=== PATIENT | male | born 1960 | race Caucasian/White ===

== ENCOUNTER 2019-10-25 17:07 | Inpatient (IN) | payer BC, SELFPAY ==
[2019-10-25] VITALS (21 sets, daily range): BP systolic 85–152; BP diastolic 58–104; PULSE 52–160; RESP 12–22; TEMP 36.2–36.8; O2SAT 93–98; BMI 35.9
--- NOTE | ~2019-10-25 | XR_ITS ---
EXAMINATION: XR chest 2V DATE: 10/25/2019 17:41 INDICATION: Chest pressure and palpitations. TECHNIQUE: PA and lateral views of the chest were obtained. COMPARISON: None FINDINGS: The lungs are clear with no focal airspace opacities, pulmonary edema, pleural effusion or pneumothor ax. The cardiomediastinal silhouette is normal. Mild thoracic spondylosis with bridging osteophytes a t multiple levels consistent with diffuse idiopathic skeletal hyperostosis (DISH). IMPRESSION: 1. No acute cardiopulmonary disease. Reviewed, dictated and finalized at location [facility]
--- NOTE | 2019-10-25 17:09 | ECG_ITS ---
Measurements Intervals [place] Rate: 118 P: [place]: 0 QRS: 10 QRSD: 121 T: -19 QT: 266 QTc: 374 Interpretive Statements ATRIAL FIBRILLATION WITH RAPID VENTRICULAR RESPONSE RIGHT BUNDLE BRANCH BLOCK ST-T WAVE ABNORMALITY IN ANTEROLATERAL LEADS- CONSIDER ISCHEMIA BASELINE ARTIFACT- I, III ABNORMAL ECG Electronically Signed On 10-26-2019 7:06:50 UPSETTER HELPER by Tarik Mata D.O.
[2019-10-25 17:30] LABS: Basophils Absolute Auto 0.1 K/mm3 (0.0-0.1); Basophils Percent Auto 0.8 % (0.2-1.2); Eosinophils Absolute Auto 0.2 K/mm3 (0-0.3); Eosinophils Percent Auto 3.3 % (0-4.4); Hematocrit 58.7 % (42.0-52.0); Hemoglobin 19.5 g/dL (14.0-18.0); Immature Granulocyte Absolute 0.01 K/mm3 (0.00-0.031); Immature Granulocyte Percent A 0.2 % (0-0.5); Lymphocytes Absolute Auto 1.59 K/mm3 (0.9-3.2); Lymphocytes Percent Auto 26.1 % (18.3-44.2); Mean Corpuscular HGB Conc 33.2 g/dl (32-36); Mean Corpuscular Hemoglobin 30.1 pg (26-34); Mean Corpuscular Volume 90.7 fl (80-100); Mean Platelet Volume 12.2 fl (7.4-10.4); Monocytes Absolute Auto 0.5 K/mm3 (0.1-0.6); Monocytes Percent Auto 8.5 % (2.6-8.5); Neutrophils Absolute Auto 3.7 K/mm3 (1.3-6.7); Neutrophils Percent Auto 61.1 % (45.5-73.1); Platelet Count Result 182 k/mm3 (150-375); Red Blood Count 6.47 M/mm3 (4.6-6.20); Red Cell Distribution Width 13.6 % (11.5-14.5); White Blood Count 6.1 K/mm3 (4.5-10.0)
[2019-10-25 17:43] LABS: Blood Urea Nitrogen 14 mg/dL (9-20); Calcium 9.7 mg/dL (8.4-10.2); Carbon Dioxide 27 mmol/L (22-30); Chloride 97 mmol/L (98-107); Estimated Glomerular Filt Rate 57; Glucose 117 mg/dL (75-110); Potassium 4.4 mmol/L (3.4-5.0); Sodium 139 mmol/L (137-145)
[2019-10-25 17:55] LABS: Troponin I 0.015 ng/mL (0.000-0.034)
--- NOTE | 2019-10-25 17:59 | ED.ARRPALP ---
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 He states that he was on his way home from eaten [employer] when he developed heart palpitations. He reports associated dizziness, sore throat, and central pressure like CP. He notes that he is on testosterone for ED and that he has been having throbbing BLE pain for roughly 1 month. He states that he has had blood work done which showed he had a elevated hemoglobin level so he had 1 pint of blood taken off roughly 3 weeks ago, which alleviated his pain till recently. He also notes that he is on Xarelto because he has had multiple PE's and DVT's. He denies any SOB, fevers, chills, N/V/D, ABD pain, and any other medical complaints at this time. MD complaint: palpitations Onset (ago): hour(s) (1) Duration: constant Arrhythmia history: atrial fibrillation Associated symptoms: chest pain (central pressure) and other (dizziness, sore throat, throbbing BLE pain) Related Data Home Medications Medication Instructions Recorded Confirmed amlodipine 5 mg PO DAILY 10/25/19 hydrochlorothiazide 12.5 mg PO DAILY 10/25/19 levothyroxine 125 mcg PO DAILY 10/25/19 metoprolol succinate 200 mg PO DAILY 10/25/19 rivaroxaban [Xarelto] 20 mg PO DAILY 10/25/19 valsartan 320 mg PO DAILY 10/25/19 Allergies Allergy/AdvReac Type Severity Reaction Status Date / Time No Known Allergies Allergy Verified 10/25/19 17:29 Review of Systems Review of Systems: All systems reviewed & are unremarkable except as noted in HPI and below Constitutional: Constitutional: Denies chills, Denies fatigue, Denies fever(s), Denies headache(s) and Denies night sweats Eyes: Eyes: Denies change in vision, Denies loss of vision and Denies other visual disturbances ENT: Denies headache(s), Denies hoarseness, Denies epistaxis, Denies nasal congestion and Reports sore throat Cardiovascular: Cardiovascular: Reports chest pain (central pressure), Denies leg edema, Reports palpitations and Denies dyspnea Respiratory: Respiratory: Denies cough, Denies dyspnea and Denies wheezing Gastrointestinal: Gastrointestinal: Denies abdominal pain, Denies diarrhea, Denies nausea and Denies vomiting Genitourinary: Genitourinary: Denies hematuria, Denies dysuria and Denies urinary frequency Musculoskeletal: Musculoskeletal: Denies abnormal gait, Denies deformity, Denies joint swelling, Denies muscle weakness, Denies numbness and Reports other (throbbing BLE pain) Integumentary/Breasts: Skin/Breast: Denies rash, Denies unusual bruising and Denies wounds Neurologic: Denies abnormal gait, Reports dizziness, Denies headache(s), Denies focal weakness, Denies loss of vision and Denies numbness Psychiatric: Psychiatric: Reports no additional psychiatric complaints Endocrine: Endocrine: Denies fatigue and Denies palpitations Hematologic/Lymphatic: Hematologic/Lymphatic: Denies easy bleeding and Denies easy bruising Allergic/Immunologic: Allergic/Immunologic: Denies wheezing PMFSH Past Medical History Medical History (Updated 10/25/19 @ 22:26 by Caden Griffiths MD) A-fib DVT (deep venous thrombosis) ED (erectile dysfunction) On testosterone. Medical history unknown PE (pulmonary thromboembolism) Surgical History Surgical History (Updated 10/25/19 @ 18:43 by Lorenzo Kenny) Surgical history unknown Family History Family History Father Diabetes mellitus Mother Diabetes mellitus Social History Social History Smoking status: Never smoker Gender identity (if verbalized by the patient): Male
[2019-10-25] MEDS: ASPIRIN 81 MG CHEWABLE TABLET 324 MG PO (18:05)
[2019-10-25] MEDS: METOPROLOL TARTRATE INJ 5 MG/5 ML VIAL IV PUSH ×3 (18:51→19:03)
[2019-10-25] MEDS: NITROGLYCERIN OINTMENT 1 INCH DOSE TRANSDERM (18:53)
[2019-10-25] MEDS: LACTATED RINGERS 1,000 ML 999 ML IV CONT (19:04)
[2019-10-25 19:21] LABS: INR 1.5
[2019-10-25 19:25] LABS: Prothrombin Time 17.3 Seconds (11.1-14.7)
[2019-10-25] MEDS: CLOPIDOGREL BISULFATE 300 MG TABLET PO (19:25)
[2019-10-25 19:26] LABS: Partial Thromboplastin Time 33.7 SECONDS (22.3-36.8)
[2019-10-25 20:45] LABS: Troponin I 0.025 ng/mL (0.000-0.034)
--- NOTE | 2019-10-25 20:55 | PC.NURSE ---
2054 EDP at bedside for synchronized cardio version 2055 4 mg versed administered IVP VORB Dr. Griffiths. 1L Ns hanging 2 nc o2 administed 2057 4 mg versed administered ivp vorb Dr. Griffiths 2100 100 J shock administered by Dr. Griffiths. pt converted to normal sinus rhythm.
[2019-10-25] MEDS: MIDAZOLAM HCL 2 MG/2 ML VIAL 8 MG (20:56)
--- NOTE | 2019-10-25 21:00 | PC.NURSE ---
Instructed to pull 4 mg of versed per Dr. johnson, pt was sedated enough that medication was not administered. returned to the [facility].
--- NOTE | 2019-10-25 21:05 | ECG_ITS ---
Measurements Intervals [place] Rate: 83 P: 28 [place]: 142 QRS: 4 QRSD: 120 T: -26 QT: 345 QTc: 406 Interpretive Statements SINUS RHYTHM RIGHT BUNDLE BRANCH BLOCK LEFT VENTRICULAR HYPERTROPHY AND ST-T CHANGE ST-T WAVE ABNORMALITY IN INFERIOR LEADS- CONSIDER ISCHEMIA ABNORMAL ECG Electronically Signed On 10-26-2019 7:11:05 ASSIGNMENT CLERK by Tarik Mata D.O.
--- NOTE | 2019-10-25 23:39 | ADMGEN ---
This patient, Minor Bonilla, was admitted to IMU Room 211-01. Patient/family oriented to hospital policies and general routines including ID bracelet, bed and alarms, visiting hours, pain management, procedures, bathroom and other care routines, personal items, smoking policy, room service/diet, and visiting hours. Valuables list has been completed. Information on how to activate the Rapid Response Team has been discussed. Patient/Family are encouraged to report perceived risks to care and to ask questions if they do not understand what they are told or what they should do.
[2019-10-25] MEDS: LACTATED RINGERS 1,000 ML 125 ML IV CONT (23:42)
[2019-10-26] VITALS (21 sets, daily range): BP systolic 116–160; BP diastolic 75–99; PULSE 53–70; RESP 16–20; TEMP 36.1–36.7; O2SAT 94–98
--- NOTE | 2019-10-26 | ECHO_ITS ---
Patient Info Name: Minor Lujan Age: 58 years : 1960 Gender: Male Ht: 69 in Wt: 244 lbs BSA: 2.36 m2 HR: 55 bpm BP: 128 / 85 mmHg Heart Rhythm: Bradycardia Technical Quality: Good Exam Date: 10/26/2019 4:17 PM Exam Location: [facility] Patient Status: Inpatient Admit Date: 10/25/2019 Staff Ordering Physician: Monica Corona MD Radiology Assistant: Stevie Padilla DANIELE Attending Provider: Jimmy Patton MD Exam Type: CA echo dop color flow w con Study Info Indications I48.0 - Paroxysmal atrial fibrillation Complete two-dimensional, color flow and Doppler transthoracic echocardiogram is performed with contrast to opacify the left ventrical and to improve the deliniation of the left ventrical endocarial boarders. Contrast/Agitated Saline Contrast/Ag. Saline: Definity Amount: 2.00 ml Administered By: Dina Adkins RN History/Risk Factors New onset Afib; palpitations, chest pain. Summary 1. Despite definity echo contrast enhancement, regional wall motion assessment limited due to poor endomyocardial border definition. 2. Left ventricular systolic function is normal, estimated at 55-60%. 3. There is moderately increased left ventricular wall thickness. 4. The left ventricular diastolic function is grade II diastolic dysfunction. 5. Right atrial chamber dimension is moderately enlarged. 6. Left atrial chamber dimension is mildly enlarged. 7. There is mild tricuspid valve regurgitation. 8. There is trace mitral valve regurgitation. Left Ventricle Left ventricular chamber dimension is normal. Left ventricular systolic function is normal, estimated at 55-60%. There is moderately increased left ventricular wall thickness. The left ventricular diastolic function is grade II diastolic dysfunction. Despite definity echo contrast enhancement, regional wall motion assessment limited due to poor endomyocardial border definition. Right Ventricle Right ventricular chamber dimension is normal. Right ventricular systolic function is normal. Left Atria Left atrial chamber dimension is mildly enlarged. Right Atria Right atrial chamber dimension is moderately enlarged. Aortic Valve The aortic valve is not well visualized. There is mild aortic valve sclerosis. There is no aortic valve regurgitation. Pulmonic Valve The pulmonic valve is not well visualized. There is trace pulmonic regurgitation. Mitral Valve The mitral valve has normal leaflets. There is trace mitral valve regurgitation. The mitral valve annulus is mildly calcified. Tricuspid Valve The tricuspid valve leaflets are normal. There is mild tricuspid valve regurgitation. No pulmonary hypertension, estimated pulmonary arterial systolic pressure is 30 mmHg. Pericardium/Pleural The pericardium appears not well visualized. Inferior Vena Cava Normal inferior vena cava with >50% collapse upon inspiration consistent with normal right atrial pressure, 10 mmHg. Aorta The aortic root size at the sinus of Valsalva is normal. Left Ventricular Outflow Tract Name Value Normal LVOT 2D LVOT Diameter 2.19 cm LVOT Doppler
[2019-10-26] MEDS: LEVOTHYROXINE SODIUM 125 MCG TABLET PO (05:57)
[2019-10-26] MEDS: LACTATED RINGERS 1,000 ML 125 ML IV CONT ×2 (08:48→15:58)
[2019-10-26] MEDS: METOPROLOL SUCCINATE EXT REL 100 MG TABCR 200 MG PO (08:50)
[2019-10-26] MEDS: THERAPEUTIC MULTIVITAMINS/MINERALS TAB (*BKC) 1 TABLET PO (08:51)
--- NOTE | 2019-10-26 09:19 | PM.CNCAR ---
Assessment and Plan Additional Plan 58-year-old gentleman with longstanding hypertension obesity and polycythemia. He is admitted last night with his 3rd or 4th episode of recurrent symptomatic atrial fibrillation and we now is asymptomatic following DC cardioversion in the emergency department. He is on beta-stalin therapy and chronically anticoagulated with Xarelto. Because of the recurrences of atrial fib at this point I would recommend attempting more aggressive antiarrhythmic therapy and going to transition him from metoprolol to sotalol. The patient understands that this decision result in him having to be in the hospital for couple of days to monitor for proarrhythmia and QT interval. Since he is in the hospital and going to consult Hematology to see him he says he has an upcoming appointment with Dr. Anthony in a couple of months. To facilitate this evaluation of will consult him as an inpatient Hardik Rock MD [facility] History of Present Illness History of Present Illness Consult date/time: Date of service: 10/26/19 09:19 Reason For Visit: af w rvr cp polycythemia Narrative: This is a 58-year-old gentleman I am seeing in consultation today at the request of the hospitalist service to assist with management of atrial fibrillation. The patient is apparently known to Dr. ivan of our practice and has a history of paroxysmal atrial fibrillation for at least about 6 years. His 1st episode of AFib occurred in 2013 associated with a viral illness. He was treated conservatively he converted to sinus rhythm with beta-stalin treatment and because of low chads score he was not anticoagulated. Since then he has had a couple of symptomatic recurrences of atrial fibrillation which have resulted in the decision to anticoagulate him. According to the chart is last episode was in February of 2018. Yesterday the patient was in his usual state of health when later in the evening he noted the abrupt onset of tachycardia and palpitations. He recognized this as his atrial fibrillation. He stated the symptoms were a bit more concerning to him because this 1 was associated with a sense of some air hunger and some chest discomfort as well. He came into the emergency department was seen and presumably because of the symptoms was electrically cardioverted to sinus rhythm. The ED notes temp however read that he was otherwise comfortable and did not have any cut other complaints at the time he was being seen down there. He was sedated and cardioverted with 100 joules synchronized cardioversion was in the emergency room which restored normal sinus rhythm. He has been admitted to the hospital and is being seen in at this morning in consultation he offers no other complaints at this time. The patient also indicates he was recently found to have polycythemia. He indicates that this was identified by Dr. Manning during a recent office visit were lab work was done. Reading Dr. moncho patel however the patient was noted to have an elevated hemoglobin couple of years ago in the hospital. He was taking a testosterone supplement at that time and was advised to discontinue this. When he was in his usual state of health he denies any other complaints such as exertional chest pain shortness of breath orthopnea PND or edema. He has never had a syncopal episode. Previous echocardiograms have demonstrated concentric left ventricular hypertrophy with good systolic function and no significant valvular disease. Presumably the P AFib is on the basis of hypertensive left ventricular hypertrophy. Review of Systems Constitutional: Constitutional: Reports no additional constitutional complaints Eyes: Eyes: Reports no additional eye complaints ENT: Reports system reviewed and no additional complaints, except as documented Cardiovascular: Cardiovascular: Reports as per HPI Respiratory: Respiratory: Reports as per HPI Gastrointestinal: Gastrointestinal: Reports no additional gastr
[2019-10-26 09:46] LABS: Hematocrit 52.3 % (42.0-52.0); Mean Corpuscular HGB Conc 32.5 g/dl (32-36); Mean Corpuscular Volume 92.2 fl (80-100); Mean Platelet Volume 12.1 fl (7.4-10.4); Platelet Count Result 143 k/mm3 (150-375); Red Blood Count 5.67 M/mm3 (4.6-6.20); Red Cell Distribution Width 13.4 % (11.5-14.5); White Blood Count 4.8 K/mm3 (4.5-10.0)
[2019-10-26 09:55] LABS: Blood Urea Nitrogen 13 mg/dL (9-20); Calcium 8.8 mg/dL (8.4-10.2); Carbon Dioxide 31 mmol/L (22-30); Chloride 98 mmol/L (98-107); Estimated CRCL calculation 67 ml/min; Estimated Glomerular Filt Rate 57; Glucose 120 mg/dL (75-110); Magnesium 1.7 mg/dL (1.6-2.3); Sodium 136 mmol/L (137-145)
[2019-10-26] MEDS: ASPIRIN 81 MG CHEWABLE TABLET PO (10:21)
--- NOTE | 2019-10-26 13:37 | PC.NURSE ---
0930 dose of sotalol not given - will start this pm per Savana Balderas AQUACULTURE FARMER order- pt had received am dose of metoprolol 200mg - HR 55-
--- NOTE | 2019-10-26 14:54 | PM.IMHP ---
H&P: HPI History of Present Illness Chief complaint: af w rvr cp polycythemia Narrative: Minor Lujan Sr. is a 58 year old male Patient is a 58-year-old male with history of DVT PE chronically on Xarelto he also has a history of polycythemia vera, he presented emergency department with a complaint of palpitation was found to have new onset atrial fibrillation with RVR he was DC converted in the emergency depart started on metoprolol and remained in sinus rhythm, patient was seen by armature inspector recommended the patient will benefit switching over to sotalol is patient has history of recurrent atrial fibrillation at this time patient denies any complaints of palpitation chest pain shortness of breath fever or chills Review of Systems Review of Systems: All systems reviewed & are unremarkable except as noted in HPI and below PMFSH Past Medical History Medical History (Updated 10/26/19 @ 16:16 by Monica Corona MD) A-fib DVT (deep venous thrombosis) ED (erectile dysfunction) On testosterone. Medical history unknown PE (pulmonary thromboembolism) Surgical History Surgical History (Updated 10/25/19 @ 18:43 by Lorenzo Kenny) Surgical history unknown Family History Family History (Updated 10/26/19 @ 00:04 by Sandy Lynch RN) Father Diabetes mellitus Mother Diabetes mellitus Afib Hypertension Social History Social History Smoking status: Never smoker Alcohol intake: never Substance use: never Gender identity (if verbalized by the patient): Male Agree to blood products: No Meds Home Medications and Allergies Home Medications Medication Instructions Recorded Confirmed Type amlodipine 5 mg PO DAILY 10/25/19 10/26/19 History hydrochlorothiazide 12.5 mg PO DAILY 10/25/19 10/26/19 History levothyroxine 125 mcg PO DAILY 10/25/19 10/26/19 History metoprolol succinate 200 mg PO DAILY 10/25/19 10/26/19 History rivaroxaban [Xarelto] 20 mg PO DAILY 10/25/19 10/26/19 History valsartan 320 mg PO DAILY 10/25/19 10/26/19 History multivitamin with iron [Daily 1 tablet PO DAILY 10/26/19 10/26/19 History Vitamin with Iron] Allergies Allergy/AdvReac Type Severity Reaction Status Date / Time No Known Allergies Allergy Verified 10/25/19 17:29 Vital Signs Vital Signs - 24 hr 10/25/19 17:13 10/25/19 18:51 10/25/19 18:57 Temperature 98.2 F Pulse Rate 130 H 142 H 124 H Pulse Rate [Monitor] Respiratory Rate 20 Blood Pressure 152/104 H Blood Pressure [Right Arm] Pulse Oximetry 98 10/25/19 19:03 10/25/19 19:26 10/25/19 20:30 Temperature Pulse Rate 160 H 116 H 121 H Pulse Rate [Monitor] Respiratory Rate 18 15 Blood Pressure 125/81 111/59 L Blood Pressure [Right Arm] Pulse Oximetry 97 95 10/25/19 20:55 10/25/19 21:01 10/25/19 21:06 Temperature Pulse Rate Pulse Rate [Monitor] 147 H 129 H 115 H Respiratory Rate 15 19 21 H Blood Pressure Blood Pressure [Right Arm] 111/59 L 109/72 111/59 L Pulse Oximetry 95 98 94 10/25/19 21:11 10/25/19 21:17 10/25/19 21:23 Temperature Pulse Rate Pulse Rate [Monitor] 82 78 66 Respiratory Rate 17 17 14 Blood Pressure Blood Pressure [Right Arm] 93/65 L 85/69 L 87/64 L Pulse Oximetry 97 94 97 10/25/19 21:28 10/25/19 21:33 10/25/19 21:36 Temperature Pulse Rate Pulse Rate [Monitor] 76 80 68 Respiratory Rate 22 H 18 12 Blood Pressure Blood Pressure [Right Arm] 100/70 123/94 H 100/75 Pulse Oximetry 95 95 93 10/25/19 21:37 10/25/19 21:46 10/25/19 22:01 Temperature Pulse Rate 73 Pulse Rate [Monitor] 67 58 L Respiratory Rate 20 18 15 Blood Pressure 100/75 Blood Pressure [Right Arm] 95/70 L 95/79 L Pulse Oximetry 96 96 93 10/25/19 22:34 10/25/19 23:24 10/25/19 23:38 Temperature 98.0 F 97.1 F L Pulse Rate 54 L 52 L 54 L Pulse Rate [Monitor] Respiratory Rate 18 17 20 Blood Pressure 98/58 L 102/79 116/76 Blood Pressure
[2019-10-26] MEDS: PERFLUTREN LIPID MICROSPHERES 1.5 ML VIAL DILUTED TO 10 ML TOTAL VOLUME IV PUSH (17:07)
[2019-10-26] MEDS: RIVAROXABAN 20 MG TABLET PO (17:49)
[2019-10-27] VITALS (10 sets, daily range): BP systolic 130–155; BP diastolic 80–99; PULSE 41–74; RESP 16–20; TEMP 36.3–36.9; O2SAT 96–98
--- NOTE | 2019-10-27 02:27 | CONS_ITS ---
DATE OF CONSULTATION: 10/26/2019 REASON FOR CONSULTATION: Erythrocytosis. HISTORY OF PRESENTING ILLNESS: This is a pleasant 58-year-old male, who has a history of DVT and PE diagnosed 3 years ago and has been on Xarelto since then. The patient also has a history of atrial fibrillation. He came into the emergency room with complaint of palpitation and found to have atrial fibrillation with rapid ventricular rate. He was started on metoprolol and remained in sinus rhythm. The patient also has been taking testosterone injections for at least 10 years duration. He was switched to testosterone cream just about a month ago. He had donated blood 3 weeks ago at [facility]. He complained of bilateral lower extremity pain, which has improved after the blood donation. He denies any history of smoking. He also has been currently worked up for sleep apnea. He denies any other complaints. REVIEW OF SYSTEMS: Twelve-point review of systems reviewed and as per HPI, otherwise negative. PAST MEDICAL HISTORY: Atrial fibrillation, history of pulmonary embolism, DVT, and erectile dysfunction. PAST SURGICAL HISTORY: None. FAMILY HISTORY: Positive for diabetes. SOCIAL HISTORY: Denies any history of smoking and drinking. HOME MEDICATIONS: Reviewed. ALLERGIES: REVIEWED. PHYSICAL EXAMINATION: GENERAL: This patient is a well-developed, well-nourished male, in no apparent distress, oriented x3. VITAL SIGNS: Per nursing note. HEENT: Normocephalic, atraumatic. Clear oropharynx. LUNGS: Clear to auscultation bilaterally. CARDIOVASCULAR: Regular rate and rhythm. No murmurs. ABDOMEN: Soft, nontender, nondistended. Bowel sounds are positive in all 4 quadrants. No hepatosplenomegaly. EXTREMITIES: No edema. NEUROLOGIC: Grossly intact. LABORATORY DATA: WBC 4.8, hemoglobin 17, hematocrit 52.3, and platelet 143,000, neutrophils 61%, lymphocytes 26%. INR 1.5. Creatinine 1.3. ASSESSMENT AND PLAN: 1. Erythrocytosis. The patient is a 58-year-old obese male, who has no history of smoking, but has been currently worked up for sleep apnea. The patient has been on testosterone injection for 10 years duration, but recently switched to testosterone cream about a month ago. He had been complaining of bilateral lower extremity myalgias, which has improved after donating blood 3 weeks ago at [facility]. He denies any chest pain and does have some shortness of breath. He has a history of pulmonary embolism diagnosed 3 years ago and has been on Xarelto since then. He now came into the hospital with recurrent atrial fibrillation. He had DC cardioversion done in the ER and has been on beta blockers since then. I have discussed the etiology of erythrocytosis with the patient. I do not see need for JAK2 mutation testing since etiology is quite apparent that this is due to the testosterone therapy. I will check erythropoietin level. I have recommended biweekly phlebotomy in my office to keep hematocrit around 45. The patient has been provided with my office information. He will follow up with my office soon after the discharge to initiate biweekly phlebotomy treatment. 2. Atrial fibrillation. The patient is on Xarelto as well as on beta blockers. 3. History of pulmonary embolism. The patient is on Xarelto. SHAD GUZMÁN M.D. BOILER OUT BOILER OUT D Juan MT: Addi
[2019-10-27 04:42] LABS: Hematocrit 51.9 % (42.0-52.0); Hemoglobin 17.1 g/dL (14.0-18.0); Mean Corpuscular HGB Conc 32.9 g/dl (32-36); Mean Corpuscular Hemoglobin 30.2 pg (26-34); Mean Corpuscular Volume 91.5 fl (80-100); Mean Platelet Volume 11.8 fl (7.4-10.4); Platelet Count Result 143 k/mm3 (150-375); Red Blood Count 5.67 M/mm3 (4.6-6.20); Red Cell Distribution Width 13.2 % (11.5-14.5); White Blood Count 5.3 K/mm3 (4.5-10.0)
[2019-10-27 05:09] LABS: Blood Urea Nitrogen 14 mg/dL (9-20); Calcium 8.7 mg/dL (8.4-10.2); Carbon Dioxide 28 mmol/L (22-30); Chloride 100 mmol/L (98-107); Estimated CRCL calculation 72 ml/min; Estimated Glomerular Filt Rate > 60; Glucose 96 mg/dL (75-110); Potassium 4.3 mmol/L (3.4-5.0); Sodium 137 mmol/L (137-145)
[2019-10-27] MEDS: LEVOTHYROXINE SODIUM 125 MCG TABLET PO (06:54)
--- NOTE | 2019-10-27 07:44 | PC.NURSE ---
Dr. Pearce called back regarding Sotalol administration, she spoke with Sanyd Lynch. Dr. Tripathi will speak with Savana Balderas NP and will advise how to proceed. Await for further instructions.
--- NOTE | 2019-10-27 08:00 | ECG_ITS ---
Measurements Intervals [place] Rate: 52 P: 30 OR: 149 QRS: 11 QRSD: 126 T: -31 QT: 390 QTc: 363 Interpretive Statements SINUS BRADYCARDIA RIGHT BUNDLE BRANCH BLOCK LEFT VENTRICULAR HYPERTROPHY ST-T WAVE ABNORMALITY IN INFERIOR LEADS- CONSIDER ISCHEMIA ABNORMAL ECG Electronically Signed On 10-27-2019 10:22:57 ELECTROMECHANICAL EQUIPMENT TESTER by Tarik Maat D.O.
[2019-10-27] MEDS: THERAPEUTIC MULTIVITAMINS/MINERALS TAB (*BKC) 1 TABLET PO (09:52)
[2019-10-27] MEDS: ASPIRIN 81 MG CHEWABLE TABLET PO (10:57)
[2019-10-27] MEDS: RIVAROXABAN 20 MG TABLET PO (16:43)
--- NOTE | 2019-10-27 16:43 | PM.PNCARD ---
Progress Note: A&P Assessment and Plan (1) Atrial fibrillation with RVR: Code(s): I48.91 - Unspecified atrial fibrillation Status: Acute Assessment and Plan: Cardioverted in the emergency room. Plan was to start sotalol however his heart rates have been in the low 50s and at night down into the 30s and 40s. Sleep study has been ordered by Dr. Douglass. 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 Additional Plan OK to discharge from cardiac standpoint See discharge instructions for follow-up Plan discussed with Dr Jenkins [id number] 10/27/2019 Time Spent With Patient Time with patient: 15 - 25 minutes Subjective Date/time seen: 10/27/19 16:43 Interval history: Follow-up for: Atrial fibrillation with rapid ventricular response, untreated sleep apnea, hypertension, erythrocytosis Date of service: 10/27/2019 Subjective: Denied chest discomfort, shortness of breath, lightheadedness or palpitations. Review of Systems Constitutional: Constitutional: Denies anorexia, Denies body ache(s), Denies chills and Denies fatigue Eyes: Eyes: Denies blurry vision ENT: Denies dysphagia, Denies dizziness and Denies epistaxis Cardiovascular: Cardiovascular: Denies chest pain, Denies leg edema and Denies dyspnea Respiratory: Respiratory: Denies cough and Denies dyspnea Gastrointestinal: Gastrointestinal: Denies abdominal pain, Denies diarrhea, Denies nausea and Denies vomiting Genitourinary: Genitourinary: Denies hematuria Musculoskeletal: Musculoskeletal: Denies myalgias Neurologic: Reports Normal hearing present, Denies abnormal gait and Denies headache(s) Psychiatric: Psychiatric: Denies anxiety and Denies depression Hematologic/Lymphatic: Hematologic/Lymphatic: Reports easy bruising Allergic/Immunologic: Allergic/Immunologic: Denies itchy eyes Exam Const: General: cooperative, comfortable and no acute distress Nutritional Appearance: obese Orientation/consciousness: patient oriented x3 Limitations: no limitations HENMT: Mouth: Yes moist mucous membranes Eyes: Sclera: sclerae normal Pupils: Equal, round and reactive pupils present Neck: Neck: full ROM Other: Correct carotid upstrokes normal no bruits audible Resp: Effort & Inspection: normal respiratory effort Auscultation: clear to auscultation bilaterally Cardio: Rate: regular rate Rhythm: regular rhythm Other: S4 gallop is evident no cardiac murmur is audible GI: Auscultation: normal bowel sounds Skin: General skin exam: normal color Neuro: Cranial nerves: Yes Equal, round and reactive pupils present Cognition (Neuro): normal cognition Extrem: General: normal to inspection Psych: Appearance: grossly normal Mental Status: mental status grossly normal Speech and movement: Normal speech and movement present Affect: normal affect Attitude: cooperative Thought process: Normal thought process present Thought content: Yes Normal thought content present Insight: Good insight present (Psych) Judgement: Good judgement present (Psych) Objective Data Vital Signs Vital Signs: Vital Signs - 24 hr 10/26/19 18:00 10/26/19 19:37 10/26/19 20:00 Temperature 36.7 C Pulse Rate 64 57 L 56 L Respiratory Rate 18 16 Blood Pressure 148/99 H Pulse Oximetry 94 97 10/26/19 21:19 10/26/19 22:00 10/26/19 23:55
--- NOTE | 2019-10-27 17:23 | PM.DS ---
DS: Diagnosis Admitting Diagnosis Admitting Diagnosis: Unspecified atrial fibrillation Discharge Diagnosis (1) Atrial fibrillation with RVR: Code(s): I48.91 - Unspecified atrial fibrillation Status: Acute Assessment and Plan: Minor Lujan is a 58 year old male Patient is a 58-year-old male with history of DVT PE chronically on Xarelto he also has a history of polycythemia vera, he presented emergency department with a complaint of palpitation was found to have new onset atrial fibrillation with RVR he was DC converted in the emergency depart started on metoprolol and remained in sinus rhythm, patient was seen by tar pot man recommended the patient will benefit switching over to sotalol is patient has history of recurrent atrial fibrillation at this time patient denies any complaints of palpitation chest pain shortness of breath fever or chills (2) Polycythemia: Code(s): D75.1 - Secondary polycythemia Status: Acute Assessment and Plan: Patient clinically stable will be seen by civil engineering assistant and further recommendation to follow (3) Chest pain: Code(s): R07.9 - Chest pain, unspecified Status: Acute Assessment and Plan: Most likely induced by atrial fibrillation with with RVR unlikely secondary to coronary artery disease is 3 sets of cardiac enzymes are negative and there are no acute changes on EKG patient is seen by tar pot man (4) PE (pulmonary thromboembolism): Code(s): I26.99 - Other pulmonary embolism without acute cor pulmonale Status: Acute Assessment and Plan: Chronic on Xarelto clinically stable (5) DVT (deep venous thrombosis): Code(s): I82.409 - Acute embolism and thrombosis of unspecified deep veins of unspecified lower extremity Status: Acute Assessment and Plan: Chronic on Xarelto clinically stable DS: Summary Hospital Course Reason for hospitalization: Patient is a 58-year-old male with history of DVT PE chronically on Xarelto he also has a history of polycythemia vera, he presented emergency department with a complaint of palpitation was found to have new onset atrial fibrillation with RVR he was DC converted in the emergency depart started on metoprolol and remained in sinus rhythm, patient was seen by tar pot man recommended the patient will benefit switching over to sotalol is patient has history of recurrent atrial fibrillation at this time patient denies any complaints of palpitation chest pain shortness of breath fever or chills Hospital Course: Patient is a 58-year-old male with history of DVT PE chronically on Xarelto he also has a history of polycythemia vera, he presented emergency department with a complaint of palpitation was found to have new onset atrial fibrillation with RVR he was DC converted in the emergency depart started on metoprolol and remained in sinus rhythm, patient was seen by tar pot man recommended the patient will benefit switching over to sotalol is patient has history of recurrent atrial fibrillation however patient developed bradycardia and sotalol was stopped and patient was placed on metoprolol succinate, his rate is controlled and he clinically stable, will discharge home today, he will follow up with tar pot man as scheduled, Status at Discharge Cognitive/behavioral status at discharge: Patient is back to baseline Functional status at discharge: independent ambulation Overall status at discharge: patient is back to baseline Time Spent with Patient Time attestation: Total time spent providing and/or coordinating discharge services: Patient was seen and examined at the time of the discharge Condition at discharge is stable Code status: Full code. Time spent preparing discharge summary, discharge medications, discussing discharge planning with continuous pillowcase cutter and patient is 35 minutes. Time spent: Greater than 30 minutes Exam Narrative: Exam Narrative: Patient is moderately obese Const: G
== END 2019-10-27 17:50 | disposition home or self-care (01) | DRG 310 ==
LOC: ANHED 22:26 → ANHIMU 23:21
PROVIDERS: Emergency Medicine; Internal Medicine Hematology & Oncology; Admitting Provider Internal Medicine; Emergency Provider Emergency Medicine; PCP Family Medicine Adolescent Medicine; Visit Provider Family Medicine
DX: I48.0 Paroxysmal atrial fibrillation (principal); Z79.01 Long term (current) use of anticoagulants; Z86.718 Personal history of other venous thrombosis and embolism; Z86.711 Personal history of pulmonary embolism; D75.1 Secondary polycythemia; I25.10 Atherosclerotic heart disease of native coronary artery without angina pectoris; N52.9 Male erectile dysfunction, unspecified; E66.9 Obesity, unspecified; Z68.35 Body mass index [BMI] 35.0-35.9, adult
CPT/HCPCS: 36415; 71046; 80048; 82668; 83735; 84484; 85025; 85027; 85610; 85730; 92960; 93005; 96361; 96374; 99291; A9270; C8929; J2250; J7030; J7120; Q9957

== ENCOUNTER 2020-03-04 09:56 | Outpatient (CLI) | payer BC, SELFPAY ==
[2020-03-04 11:42] LABS: Add Urine Microscopic? YES; Appearance Urine Clear (Clear); Bilirubin Urine Negative (Negative); Blood Urine Negative (Negative); Color Urine Yellow (Yellow); Glucose Urine UA Negative (Negative); INR 1.5; Ketones Urine Negative (Negative); Leukocyte Esterase Ur Negative LEU/UL (Negative); Mucus Urine Rare /lpf; Nitrate Urine Negative (Negative); Protein Urine Negative (Negative); Prothrombin Time 17.9 Seconds (11.1-14.7); RBC Urine 0-2 /hpf (0-2); Specific Grav Ur 1.019 (1.001-1.035); Urobilinogen Urine Negative mg/dL (<2.0); WBC Urine 0-3 /hpf
[2020-03-04 11:43] LABS: Hemoglobin A1C 5.7 % (<5.7); Partial Thromboplastin Time 32.9 SECONDS (22.3-36.8); Urine Cotinine NEGATIVE
[2020-03-04 11:53] LABS: Albumin Level 4.1 g/dL (3.5-5.1); Blood Urea Nitrogen 13 mg/dL (9-20); Calcium 8.7 mg/dL (8.4-10.2); Carbon Dioxide 24 mmol/L (22-30); Chloride 106 mmol/L (98-107); Estimated Glomerular Filt Rate > 60; Glucose 98 mg/dL (75-110); Potassium 4.4 mmol/L (3.4-5.0); Sodium 137 mmol/L (137-145)
== END 2020-03-04 09:57 | disposition home or self-care (01) ==
PROVIDERS: PCP Family Medicine Adolescent Medicine; Visit Provider Orthopaedic Surgery
DX: M16.12 Unilateral primary osteoarthritis, left hip (principal)
CPT/HCPCS: 36415; 80048; 80307; 81001; 82040; 83036; 85610; 85730; 86850; 86900; 86901; 87081

== ENCOUNTER 2020-03-12 04:15 | Outpatient (CLI) | payer BC, SELFPAY ==
[2020-03-12 18:08] LABS: SARS-CoV-2 RNA PCR Negative
== END 2020-03-12 04:16 | disposition home or self-care (01) ==
LOC: ANHCOVIDDT 04:15
PROVIDERS: PCP Family Medicine Adolescent Medicine; Visit Provider Orthopaedic Surgery
DX: Z01.812 Encounter for preprocedural laboratory examination (principal); Z11.59 Encounter for screening for other viral diseases
CPT/HCPCS: 87635; C9803; U0003

== ENCOUNTER 2020-03-15 00:15 | Day surgery (SDC) | payer BC, SELFPAY ==
[2020-03-04 10:29] VITALS: BP 154/78; PULSE 62; RESP 20; TEMP 36.8; O2SAT 97; BMI 35.2
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
[2020-03-15] VITALS (12 sets, daily range): BP systolic 86–120; BP diastolic 38–80; PULSE 55–99; RESP 12–20; TEMP 36.1–36.8; O2SAT 97–100; BMI 35.1
--- NOTE | ~2020-03-15 | XR_ITS ---
EXAMINATION: XR hip LT 1V DATE: 03/15/2020 10:45 INDICATION: Left hip arthroplasty TECHNIQUE: AP view of the left hip FINDINGS: There is a left total hip arthroplasty in expected position. Subcutaneous gas with soft ti ssue swelling are consistent with recent surgery. IMPRESSION: 1. Recent left total hip arthroplasty. Reviewed, dictated and finalized at location A.
[2020-03-15] MEDS: LACTATED RINGERS 1,000 ML 30 ML IV CONT ×2 (06:35→10:30)
[2020-03-15] MEDS: IBUPROFEN IV 800 MG/200 ML 800 MG/200 ML BAG 400 MG IVPB (06:40)
[2020-03-15] MEDS: TRANEXAMIC ACID 1,000MG/ISO100 1,000 MG/100 ML BAG 200 MG IVPB (07:11)
[2020-03-15 07:13] LABS: Prothrombin Time 13.1 Seconds (11.1-14.7)
[2020-03-15 07:14] LABS: Partial Thromboplastin Time 25.6 SECONDS (22.3-36.8)
--- NOTE | 2020-03-15 07:27 | WPDHPUPDATE1 ---
History and Physical Update Update Date/Time: 03/15/20 07:27 History and Physical has been reviewed, including an updated exam of the patient. There are NO changes in the patient's condition. Risks, benefits, and alternatives have been discussed and questions answered. Patient agrees to proceed with procedure.
[2020-03-15] MEDS: ceFAZolin 2 GM/D5W 50 ML 2 GM/50 ML BAG IVPB ×3 (07:36→23:55)
--- NOTE | 2020-03-15 10:32 | PM.OP ---
Procedure Note - Brief Procedure Note - Brief Date of procedure: 03/15/20 Pre-op diagnosis: Left Hip DJD Post-op diagnosis: same Procedure performed: L SERA Anesthesia: GETA Surgeon: Lester Mathews MD Estimated blood loss (mL): 450 Drains: No Complications: No immediate complications Condition: stable Disposition: PACU
--- NOTE | 2020-03-15 11:03 | SUR.PHASEI ---
1040 xrays of left hip done,dr metcalf aware.
--- NOTE | 2020-03-15 11:55 | PC.NURSE ---
This patient, Minor Solis Le Doyle, was admitted to -. Patient/family oriented to hospital policies and general routines including ID bracelet, bed and alarms, visiting hours, pain management, procedures, bathroom and other care routines, personal items, smoking policy, room service/diet, and visiting hours. Valuables list has been completed. Information on how to activate the Rapid Response Team has been discussed. Patient/Family are encouraged to report perceived risks to care and to ask questions if they do not understand what they are told or what they should do.
[2020-03-15 12:18] LABS: Hematocrit 48.3 % (42.0-52.0); Hemoglobin 15.5 g/dL (14.0-18.0)
[2020-03-15] MEDS: SODIUM CHLORIDE 0.9% IV 1,000 ML 125 ML IV CONT (12:57)
--- NOTE | 2020-03-15 14:24 | PC.NURSE ---
Call to pharmacy to request 0900 medications be sent to floor for administration.
--- NOTE | 2020-03-15 14:30 | OP_ITS ---
DATE OF PROCEDURE: 03/15/2020 PREOPERATIVE DIAGNOSIS: Left hip DJD. POSTOPERATIVE DIAGNOSIS: Left hip DJD. PROCEDURE: Left total hip arthroplasty. ANESTHESIA: General. COMPLICATIONS: None. INDICATIONS: This is a 59-year-old gentleman who has had a history of bilateral hip arthrosis. He had a right total hip arthroplasty approximately 6 years ago and now, he is here for his left total hip arthroplasty, which also has severe arthritis. DESCRIPTION OF PROCEDURE: The patient was taken to the operating room in stable condition and placed in supine position. General anesthesia was induced and then, the patient was placed in a lateral decubitus and the left lower extremity was prepped and draped sterilely from the toes to the iliac crest region. Incision was made in posterolateral aspect of the hip down to the subcutaneous tissues and down to the fascia. The fascia was incised, exposing the short external rotators of the hip. The piriformis tendon was identified. Sciatic nerve was identified as well. The greater and the lesser trochanter were identified. Incision was made through the short external rotators including the piriformis tendon and then through the capsule, the hip joint and then down until the lesser trochanter was observed. There was clear fluid coming from the hip joint. Once that was performed, then an osteotomy was performed approximately 1 cm proximal to the lesser trochanter and the head measured approximately 48 mm. Next, the acetabulum was exposed well. Sequential reaming was performed starting with a 44 reamer and ending with a 49 reamer and approximately 35 degrees of abduction and 15 degrees of anteversion. A trial 49 acetabular component was placed and fit well, it bottomed out well and it was very tight. Once that was performed, then a #50 G7 Biomet acetabular component was press-fit into the acetabulum in approximately 40 degrees of abduction and the anteversion was in alignment with the trans-acetabular ligament. The fit was excellent. No screws were necessary. A 10-degree high wall liner was added. Next, the femoral canal was prepared first with a canal finder and then, with sequential broaching until a #6 broach in 15 degrees of anteversion fit well within the femoral canal. A high offset neck and a +0, 36 mm head were used and the hip was relocated, taken through range of motion. The Shuck test was excellent. The hip was very stable. The leg-lengths were grossly equal. The trial components were removed and then, a Taper Lock #6 with a high offset neck was tapped in the femoral canal and 15 degrees of anteversion and it felt good and it was tight and excellent fit. Next, a +0, 36 mm head was tried once again. The hip was taken through range of motion. Leg lengths were found to be grossly equal. There was good stability in all rotation and then, the trial head was removed and then, a Biomet ceramic 36 mm head with a +0 neck was tapped into place. The hip was taken through range of motion once again. Leg lengths were grossly equal. The hip was very stable specially in internal rotation at 90 degrees. The Shuck test was excellent. Next, the wound was irrigated thoroughly with sterile Betadine and sterile water for 3 minutes. The capsule and the short external rotators were approximated with #1 Vicryl suture. The fascial layer was approximated with #2 Quill. The subcutaneous tissues were approximated with 3-0 Quill and then Dermabond was placed and Steri-Strips. Sterile dressing was applied. The patient was placed back into the supine position. He was extubated and sent to Recovery. Irma I MT: Addi
[2020-03-15] MEDS: FERROUS SULFATE 324 MG TABLET PO (14:58)
--- NOTE | 2020-03-15 15:30 | WPDCN ---
Assessment and Plan Assessment and plan (1) Degenerative joint disease of left hip: Code(s): M16.12 - Unilateral primary osteoarthritis, left hip Status: Acute Assessment and Plan: Postoperative day 0, status post left total hip arthroplasty. Wound care, pain control, and DVT prophylaxis deferred to primary service. (2) Paroxysmal atrial fibrillation: Code(s): I48.0 - Paroxysmal atrial fibrillation Status: Acute Assessment and Plan: Currently in a sinus rhythm. Continue metoprolol for rate control. Resume Xarelto per Dr. Mathews. (3) Current use of long-term anticoagulation: Code(s): Z79.01 - senior living (current) use of anticoagulants Status: Acute Assessment and Plan: Resume Xarelto as soon as okay with Dr. Mathews. (4) Hypertension: Qualifiers: Hypertension type: essential hypertension Qualified Code(s): I10 - Essential (primary) hypertension Code(s): I10 - Essential (primary) hypertension Status: Acute Assessment and Plan: Blood pressures were bit soft postoperatively, but have now improved. His antihypertensives will be reviewed and resumed as appropriate. Will continue to monitor blood pressures daily. (5) Hypothyroidism: Code(s): E03.9 - Hypothyroidism, unspecified Status: Acute Assessment and Plan: Continue levothyroxine. Additional Plan Thank you for allowing us to participate in this patient's care. Please do not hesitate to contact us with any questions. We will follow with you. Supervising physician for this medical consultation is Dr. Royal Butts. HPI Data of Consult Date/Time: 03/15/20 1530 Requesting Physician: Lester Mathews MD Primary Care Provider: Jordan Sims MD Consult Narrative Narrative: Minor Lujan Sr. is 59-year-old male status post left total hip arthroplasty whom the hospitalist service has been consulted for management of his chronic medical conditions to include paroxysmal atrial fibrillation on long-term anticoagulation, history of pulmonary embolism, hypothyroidism, hypertension, and polycythemia vera. He has suffered from degenerative joint disease for quite some time and has a history of right hip replacement. He has had pain in his left hip for quite some time, not amenable to conservative outpatient treatment, and he thus elected for replacement today. His surgery was performed under general anesthesia with no immediate complications documented an estimated blood loss of 450 mL. At the time my evaluation his pain is increasing and he rates it about an 8/10 go has a difficult time describing the pain. He denies paresthesias, skin color, and temperature changes distal to the surgical site. He also denies postoperative fever, chills, chest pain, shortness of breath, nausea, and vomiting. As mentioned he is on long-term Xarelto with his last dose being 2 days ago on Saturday morning. Review of Systems Review of Systems: Narrative: Twelve systems were reviewed with pertinent positives and negatives as per HPI. Complains of mild scratchy throat post surgery. No fever, chills, or sweats. No recent cold or flu symptoms. He denies cough and shortness of breath. No recent travel or sick contacts. Except as documented, all other systems were reviewed and are negative. [facility] Past Medical History Medical History (Updated 03/15/20 @ 20:27 by Randa Galan PA-C) Anemia Chronic back pain Secondary to degenerative disc disease in the cervical spine and at L3-L4. He has a history of nerve ablation in his neck for chronic headaches. Nighat
[2020-03-15] MEDS: CELECOXIB 200 MG CAPSULE PO (16:11)
[2020-03-15] MEDS: oxyCODONE/ACETAMINOPHEN 5-325 MG TABLET 2 TABLET PO (16:12)
[2020-03-15] MEDS: diazePAM 5 MG TABLET PO (18:14)
[2020-03-16] VITALS: BP 125/75; PULSE 90; RESP 20; TEMP 36.6; O2SAT 97
[2020-03-16 05:34] VITALS: BP 118/78; PULSE 108; RESP 20; TEMP 36.7; O2SAT 97
[2020-03-16 05:38] LABS: Basophils Percent Auto 0.1 % (0.2-1.2); Eosinophils Percent Auto 0.1 % (0-4.4); Hematocrit 46.4 % (42.0-52.0); Hemoglobin 14.8 g/dL (14.0-18.0); Immature Granulocyte Absolute 0.03 K/mm3 (0.00-0.031); Immature Granulocyte Percent A 0.4 % (0-0.5); Lymphocytes Percent Auto 10.7 % (18.3-44.2); Mean Corpuscular HGB Conc 31.9 g/dl (32-36); Mean Corpuscular Hemoglobin 29.2 pg (26-34); Mean Corpuscular Volume 91.7 fl (80-100); Mean Platelet Volume 12.2 fl (7.4-10.4); Monocytes Absolute Auto 0.8 K/mm3 (0.1-0.6); Monocytes Percent Auto 9.4 % (2.6-8.5); Neutrophils Absolute Auto 6.7 K/mm3 (1.3-6.7); Neutrophils Percent Auto 79.3 % (45.5-73.1); Platelet Count Result 165 k/mm3 (150-375); Red Blood Count 5.06 M/mm3 (4.6-6.20); Red Cell Distribution Width 13.9 % (11.5-14.5); White Blood Count 8.4 K/mm3 (4.5-10.0)
[2020-03-16 05:46] LABS: Blood Urea Nitrogen 21 mg/dL (9-20); Calcium 7.8 mg/dL (8.4-10.2); Carbon Dioxide 26 mmol/L (22-30); Chloride 102 mmol/L (98-107); Estimated CRCL calculation 71 ml/min; Estimated Glomerular Filt Rate > 60; Glucose 123 mg/dL (75-110); Sodium 135 mmol/L (137-145)
[2020-03-16] MEDS: LEVOTHYROXINE SODIUM 125 MCG TABLET PO (06:19)
[2020-03-16 09:00] VITALS: PULSE 76
[2020-03-16] MEDS: CELECOXIB 200 MG CAPSULE PO (09:00)
[2020-03-16] MEDS: FERROUS SULFATE 324 MG TABLET PO (09:00)
[2020-03-16] MEDS: DOCUSATE SODIUM 100 MG CAPSULE PO (09:00)
[2020-03-16] MEDS: METOPROLOL SUCCINATE EXT REL 50 MG TABCR PO (09:00)
[2020-03-16] MEDS: ceFAZolin 2 GM/D5W 50 ML 2 GM/50 ML BAG IVPB (09:01)
--- NOTE | 2020-03-16 09:33 | P.PNAN_ITS ---
Anes - Prog Note Post-Op Date/Time: 03/16/20 09:33 Cardiovascular status: normal Respiratory status: normal Airway patency: baseline Mental status: baseline Post-Op hydration status: normal Vital Signs: Last Vital Signs Temp 36.7 C 03/16/20 05:34 Pulse 76 03/16/20 09:00 Resp 20 03/16/20 05:34 BP 118/78 03/16/20 05:34 Pulse Ox 97 03/16/20 05:34 I/O: Intake & Output 03/15/20 03/16/20 03/16/20 23:59 07:59 15:59 Intake Total 840 950 565 Output Total 1100 200 Balance 840 -150 365 Laboratory Tests 03/16/20 05:05 03/16/20 05:05 03/15/20 03/16/20 03/16/20 12:11 05:05 05:05 WBC 8.4 RBC 5.06 Hgb 15.5 14.8 Hct 48.3 46.4 MCV 91.7 MCH 29.2 MCHC 31.9 L RDW 13.9 Plt Count 165 MPV 12.2 H Immature Gran % (Auto) 0.4 Neut % (Auto) 79.3 H Lymph % (Auto) 10.7 L [place] % (Auto) 9.4 H Eos % (Auto) 0.1 Baso % (Auto) 0.1 L Lymph # (Auto) 0.90 [place] # (Auto) 0.8 H Eos # (Auto) 0.0 Baso # (Auto) 0.0 Abs Immat Gran (auto) 0.03 Absolute Neuts (auto) 6.7 Absolute Nucleated RBC 0.0 Nucleated RBC % 0.0 Sodium 135 L Potassium 4.0 Chloride 102 Carbon Dioxide 26 BUN 21 H Creatinine 1.20 Estim Creat Clear Calc 71 Estimated GFR > 60 Glucose 123 H Calcium 7.8 L Post-procedural complaints: none Patient Feedback: Patient satisfied with anesthetic care.
[2020-03-16 10:00] VITALS: BP 115/74; PULSE 95; RESP 16; TEMP 36.5; O2SAT 97
--- NOTE | 2020-03-16 12:46 | PM.PNORT ---
Progress Note: A&P Additional Plan POD 1 DOING WELL AND HAS PASSED PT. HE WOULD LIKE TO GO HOME. HIS HGB IS STABLE. HE WILL F/U IN 3 WEEKS. Time Spent With Patient Time with patient: 15 - 25 minutes Subjective Subjective Date/Time Seen: 03/16/20 12:46 Post Op day: 1 (pod 1 DOING WELL. PASSED PT. 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 Objective Data Vital Signs Vital Signs: Vital Signs - 24 hr 03/15/20 13:45 03/15/20 17:34 03/16/20 00:00 Temperature 36.3 C L 36.8 C 36.6 C Pulse Rate 76 99 90 Respiratory Rate 16 20 20 Blood Pressure 115/63 119/80 125/75 Pulse Oximetry 99 97 97 03/16/20 05:34 03/16/20 09:00 03/16/20 10:00 Temperature 36.7 C 36.5 C Pulse Rate 108 H 76 95 Respiratory Rate 20 16 Blood Pressure 118/78 115/74 Pulse Oximetry 97 97 Intake/Output Intake/Output: Intake & Output 03/13/20 03/14/20 03/15/20 03/16/20 23:59 23:59 23:59 23:59 Intake Total 1539 1515 Output Total 1300 Balance 1539 215 Meds/Results Medications: Active Medications Generic Name Dose Route Start Last Admin Trade Name Freq PRN Reason Stop Dose Admin Acetaminophen 650 mg 03/15/20 11:49 Tylenol Tablet PO Q6H PRN Mild Pain (1-3) or Fever Hydrocodone Bitart/Acetaminophen 1 tab 03/15/20 11:49 03/16/20 06:19 [place] 7.5-325 Mg PO 1 tab Q3H PRN Administration Pain Rated 4-6 Celecoxib 200 mg 03/15/20 17:00 03/16/20 09:00 Celebrex PO 200 mg BID KAYLA Administration Diazepam 5 mg 03/15/20 11:49 03/15/20 18:14 Valium Po PO 5 mg Q6H PRN Administration Anxiety/Muscle Spasm Docusate Sodium 100 mg 03/15/20 17:00 03/16/20 09:00 Colace Capsule PO 100 mg BID KAYLA Administration Ferrous Sulfate 324 mg 03/15/20 09:00 03/16/20 09:00 Ferrous Sulfate PO 324 mg DAILY [facility] Administration Hydrochlorothiazide 12.5 mg 03/15/20 09:00 03/15/20 14:52 Hydrochlorothiazide PO Not Given DAILY [facility] Levothyroxine Sodium 125 mcg 03/16/20 06:30 03/16/20 06:19 Synthroid PO 125 mcg DAILY@0630 [facility] Administration Magnesium Hydroxide 30 ml 03/15/20 11:49 Milk Of Magnesia PO BID PRN Constipation Metoprolol Succinate 50 mg 03/16/20 09:00 03/16/20 09:00 Toprol Xl PO 50 mg QAM [facility] Administration Morphine Sulfate 3 mg 03/15/20 11:49 Morphine Sulfate Inj IV PUSH Q3H PRN Pain Rated 7-10 Naloxone HCl 0.1 mg 03/15/20 11:49 Narcan IV PUSH Q2M PRN Opiate Reversal Non-Formulary Medication 25 mg 03/15/20 11:49 Sildenafil PO DAILY PRN Edema Ondansetron HCl 4 mg 03/15/20 11:49 Zofran Inj IV PUSH Q4H PRN Nausea And Vomiting Oxycodone/Acetaminophen 2 tablet 03/15/20 11:49 03/15/20 16:12 Percocet 5-325 Mg PO 2 tablet Q4H PRN Administration Breakthrough Pain Valsartan 320 mg 03/16/20 09:00 [facility] Results: ITS Impressions Hip X-Ray 03/15/20 11:16 IMPRESSION: 1. Recent left total hip arthroplasty. Labs Labs: Laboratory Results - last 24 hr 03/16/20 03/16/20 05:05 05:05 WBC 8.4 RBC 5.06 Hgb 14.8 Hct 46.4 MCV 91.7 MCH 29.2 MCHC 31.9 L RDW 13.9 Plt Count 165 MPV 12.2 H Immature Gran % (Auto) 0.4 Neut % (Auto) 79.3 H Lymph % (Auto) 10.7 L Patrick % (Auto) 9.4 H Eos % (Auto) 0.1 Baso % (Auto) 0.1 L Lymph # (Auto) 0.90 Patrick # (Auto) 0.8 H Eos # (Auto) 0.0 Baso # (Auto) 0.0 Abs Immat Gran (auto) 0.03 Absolute Neuts (auto) 6.7 Absolute Nucleated RBC 0.0 Nucleated RBC % 0.0 Sodium 135 L Potassium 4.0 Chloride 102 Carbon Dioxide 26 BUN 21 H Creatinine 1.20 Estim Creat Clear Calc 71 Estimated GFR > 60 Glucose 123 H Calcium 7.8 L
--- NOTE | 2020-03-16 12:53 | PM.IMPN ---
Progress Note: A&P Assessment and Plan (1) Degenerative joint disease of left hip: Code(s): M16.12 - Unilateral primary osteoarthritis, left hip Status: Acute Assessment and Plan: Postoperative day 1, status post left total hip arthroplasty. Wound care, pain control, and DVT prophylaxis deferred to primary service. (2) Paroxysmal atrial fibrillation: Code(s): I48.0 - Paroxysmal atrial fibrillation Status: Acute Assessment and Plan: Currently in a sinus rhythm. Continue metoprolol for rate control. Resume Xarelto per Dr. Mathews. (3) Current use of intermodal customer service anticoagulation: Code(s): Z79.01 - assisted (current) use of anticoagulants Status: Acute Assessment and Plan: Resume Xarelto as soon as okay with Dr. Mathews. (4) Hypertension: Qualifiers: Hypertension type: essential hypertension Qualified Code(s): I10 - Essential (primary) hypertension Code(s): I10 - Essential (primary) hypertension Status: Acute Assessment and Plan: Blood pressures were bit soft postoperatively, but improved slightly since yesterday Discussed in detail about resuming metoprol and valsartan tomorrow. Patient to hold HCTZ for 2-3 days. Discussed measuring BP over the next several days. Resume HCTZ if BP over 140 sys Patient and understands directions (5) Hypothyroidism: Code(s): E03.9 - Hypothyroidism, unspecified Status: Acute Assessment and Plan: Continue levothyroxine. Additional Plan Thank you for allowing us to participate in this patient's care. Please do not hesitate to contact us with any questions. We will follow with you. Subjective Date/time seen: 03/16/20 12:53 This is a Hospitalist Consult Progress Note Interval history: Patient is a 59 yo M with history of paroxysmal atrial fibrillation on long-term anticoagulation, history of pulmonary embolism, hypothyroidism, hypertension, and polycythemia vera who is here for left hip arthroplast POD1 per Dr. Mathews; Hospitalist service consulted for medical management of comorbid conditions. Patient states he is feeling okay today. His pain is rated 5-8 with movement, but otherwise reasonably controlled without movement. No other complaints. Tolerating PO. Denies f/c/s, headaches, dizziness, lightheadedness, cp/palpitations, sob/cough, n/v/d/c, abd pain, changes in BMs, dysuria, hematuria, cloudy urine, calf pain/swelling. Review of Systems Review of Systems: All systems reviewed & are unremarkable except as noted in HPI and below Exam Narrative: Exam Narrative: Patient sitting upright in chair at time of visit. is in room visiting Const: General: cooperative, healthy appearing, comfortable, no acute distress, well developed and alert Orientation/consciousness: patient oriented x3 HENMT: Head: normocephalic and atraumatic General nose exam: Normal nares present Face and sinus: face symmetric Mouth: Yes moist mucous membranes Eyes: General: appearance normal, both eyes and all related structures EOM: EOMs intact bilaterally Neck: Neck: trachea midline and supple Resp: Effort & Inspection: normal respiratory effort Auscultation: clear to auscultation bilaterally Cardio: Rate: regular rate Rhythm: regular rhythm Heart sounds: no murmurs Other: Appears to be in sinus at time of evaluation GI: Inspection: non-distended and obesity GI Palp: No abdominal tenderness and Yes Soft to palpation Auscultation: normal bowel sounds and normoactive bowel sounds Skin: General skin exam: normal color and no rashes or lesions noted Neuro: General: moves all
--- NOTE | 2020-03-16 12:53 | PM.DS ---
DS: Admitting Diagnosis Admitting Diagnosis Admitting Diagnosis: Unilateral primary osteoarthritis, left hip DS: Discharge Diagnosis Discharge Diagnosis (1) History of left hip replacement: Code(s): Z96.642 - Presence of left artificial hip joint Status: Acute DS: Summary Time Spent with Patient Time attestation: Total time spent providing 15 MINand/or coordinating discharge services: DS: Data Data Completed and Pending Labs on day of discharge: Labs from last 24 hours 03/16/20 03/16/20 05:05 05:05 WBC 8.4 RBC 5.06 Hgb 14.8 Hct 46.4 MCV 91.7 MCH 29.2 MCHC 31.9 L RDW 13.9 Plt Count 165 MPV 12.2 H Immature Gran % (Auto) 0.4 Neut % (Auto) 79.3 H Lymph % (Auto) 10.7 L [place] % (Auto) 9.4 H Eos % (Auto) 0.1 Baso % (Auto) 0.1 L Lymph # (Auto) 0.90 [place] # (Auto) 0.8 H Eos # (Auto) 0.0 Baso # (Auto) 0.0 Abs Immat Gran (auto) 0.03 Absolute Neuts (auto) 6.7 Absolute Nucleated RBC 0.0 Nucleated RBC % 0.0 Sodium 135 L Potassium 4.0 Chloride 102 Carbon Dioxide 26 BUN 21 H Creatinine 1.20 Estim Creat Clear Calc 71 Estimated GFR > 60 Glucose 123 H Calcium 7.8 L Discharge Plan Discharge Patient Disposition: Home Health Service Discharge Instructions: Per Care Coordination: [facility] was arranged to follow at discharge. [facility] will contact you prior to their first visit. [facility] can be contacted at [phone]. Patient Instructions: Antibiotic Form, Rivaroxaban (By mouth), Pain Management (DC), Precautions after Total Joint Replacement Surgery (DC), Fall Prevention (DC), Joint Replacement Surgery (DC), Total Hip Replacement (DC) Stand Alone Forms: General Discharge Information Follow-up/Referrals: Lester Mathews MD [Physician] - 3 Weeks Discharge Medications: New hydrocodone-acetaminophen [[place]] 5-325 mg tablet 1 tablet PO Q6H PRN (Reason: pain) Qty: 60 RF: 0 Continued sildenafil 25 mg Tablet 25 mg PO DAILY PRN (Reason: Edema) RF: 0 ferrous sulfate [iron] 325 mg (65 mg iron) Tablet 325 mg PO DAILY RF: 0 testosterone enanthate 200 mg/mL Oil 200 mg DAILY RF: 0 levothyroxine 125 mcg tablet 125 mcg PO DAILY RF: 0 valsartan 320 mg tablet 320 mg PO DAILY RF: 0 hydrochlorothiazide 12.5 mg capsule 12.5 mg PO DAILY RF: 0 Xarelto 20 mg tablet 20 mg PO DAILY RF: 0 metoprolol succinate 200 mg tablet extended release 24 hr 100 mg PO DAILY Qty: 30 RF: 0 celecoxib [Celebrex] 200 mg capsule 200 mg PO BID Qty: 30 RF: 0
== END 2020-03-16 13:52 | disposition home health service (06) ==
LOC: ANHSURGERY 06:01 → ANH2MED 14:03
PROVIDERS: PCP Family Medicine Adolescent Medicine; Visit Provider Orthopaedic Surgery
PROC: (CPT 27130; principal; 2020-03-15 07:30)
DX: M16.12 Unilateral primary osteoarthritis, left hip (principal); I48.0 Paroxysmal atrial fibrillation; D64.9 Anemia, unspecified; I10 Essential (primary) hypertension; E03.9 Hypothyroidism, unspecified; M51.36 Other intervertebral disc degeneration, lumbar region; G89.29 Other chronic pain; Z86.711 Personal history of pulmonary embolism; Z86.718 Personal history of other venous thrombosis and embolism; E66.9 Obesity, unspecified; Z68.35 Body mass index [BMI] 35.0-35.9, adult; Z79.01 Long term (current) use of anticoagulants
CPT/HCPCS: 27130; 36415; 73501; 80048; 85014; 85018; 85025; 85610; 85730; 97110; 97116; 97161; 97165; A9270; C1776; J0171; J0690; J1100; J1170; J1741; J2250; J2270; J2405; J2704; J2710; J2795; J3010; J7030; J7120

== ENCOUNTER 2020-04-14 09:33 | Outpatient (CLI) | payer BC, SELFPAY ==
--- NOTE | 2020-04-18 06:16 | SLEEP_ITS ---
Home Sleep Test DATE OF STUDY: 04/14/2020 ORDERING PHYSICIAN: Collin Douglass M.D. REASON FOR THE STUDY: Hypersomnia, atrial fib. HISTORY: This patient is a 59-year-old male, 5 feet 9 inches tall, weighing 239 pounds with a body mass index of 35.2. He has a history of atrial fibrillation and hypertension. He frequently snores and it is frequently loud enough that others complain about it. He occasionally has trouble sleeping with a cold. He does not gasp for breath at night and is not told by others that he has breathing problems. He rarely sweats excessively at night. He does not notice his heart pounding or beating irregularly at night. He occasionally falls asleep during the day, never involuntarily, never while driving, never with physical effort and he does not have loss of muscle tone with strong emotion. He does not have daytime difficulties due to excessive sleepiness. He does not have the feeling of paralysis on waking or falling asleep. He rarely has vivid dreamlike scenes upon awakening or falling asleep. He is never afraid to go to sleep. He rarely has nightmares and rarely remembers his dreams. He occasionally has racing thoughts. He never feels sad or depressed. He frequently has anxiety. He occasionally has muscular tension. He does not notice parts of his body jerking, he does not kick at night. He does not have crawly achy feelings in his legs. He does not have leg pain at night. He denies morning jaw pain. He rarely grinds his teeth. He frequently is bothered by pain during the day, occasionally is awakened by pain at night and occasionally wakes up feeling stiff in the morning. He rarely has sore achy muscles in the morning and occasionally wakes up with pain in the neck and spine. He is unable to relax. Bedtime is 11:00 p.m., falling asleep within 30 minutes waking once at night to go to the bathroom. He will stay awake on average 10 minutes. He wakes in the morning at 08:00 a.m. He has a same schedule on the weekends. He does not take naps. He is drowsy in the morning for 1 hour or longer. MEDICAL COMORBIDITIES: Hypertension, hypothyroidism, paroxysmal atrial fibrillation, total hip replacement and knee surgery. MEDICATIONS: 1. Valsartan 320 mg a day. 2. Amlodipine 5 mg a day. 3. Levothyroxine 125 mcg a day. 4. Metoprolol 100 mg a day. 5. Celebrex 200 mg a day. 6. Zolpidem 10 mg at night. HABITS: Never smoked tobacco. Caffeine, 2 cups a day. No alcohol or recreational drugs. DESCRIPTION OF THE STUDY: On the [place] Sleepiness Scale, the score is 4. This was conducted as an unattended type 3 portable home sleep test with 4 channel monitoring including respiratory effort channel, snoring channel, oxygen saturation channel, and heart rate channel. The study was scored using [facility] guidelines. Duration was 5 hours 55 minutes. The apnea-hypopnea index was 10.3, elevated. The oxygen desaturation index is 10.1. The lowest desaturation is 68%, very low. He had 9 apneas. 78% of the apneas or 7 were central, 22% of the apneas or 2 were obstructive and he had 52 hypopneas with 1250 snoring events. He desaturated 60 times and spent 16 minutes, 5% of the study below 88% saturation. Heart rate ranged from 40 to 85. IMPRESSION: This home sleep test shows evidence of at least mild obstructive sleep apnea syndrome G47.33 with an apnea-hypopnea index of 10.3, deep sustained desaturations to a minimum of 68% and 16 minutes spent below 88% saturation. The patient had several centrals and this is significant because he does have atrial fibrillation. He may tolerate an auto PAP with pressures between 5 and 15 with an appropriate mask. Followup is recommended. If apnea-hypopnea index is not improved or his symptoms are not
== END 2020-04-14 09:34 | disposition home or self-care (01) ==
LOC: ANHCSM 09:33
PROVIDERS: PCP Family Medicine Adolescent Medicine; Visit Provider Internal Medicine Cardiovascular Disease
DX: G47.33 Obstructive sleep apnea (adult) (pediatric) (principal)
CPT/HCPCS: 95806

== ENCOUNTER 2020-06-18 13:31 | Outpatient (CLI) | payer BC, SELFPAY ==
--- NOTE | ~2020-06-18 | MR_ITS ---
EXAMINATION: MR lumbar spine wo [facility] EXAM DATE: 06/18/2020 14:10 INDICATION: Left anterior thigh pain, difficulty walking. TECHNIQUE: Multi-sequential, multiplanar MR images of the lumbar spine were obtained without contrast . Sagittal T1, T2, T2 fat saturation images. Axial T2 weighted images. There is no prior study for comparison. FINDINGS: There is moderate disc disease L4-5 and L5-S1, mild to moderate at L3-4 and mild at L1-2. T he conus medullaris terminates at the L1/2 level and has normal signal intensity and morphology. The re is 2-3 mm retrolisthesis L4 on L5. The vertebral bodies are otherwise aligned. Vertebral body heig hts are maintained. Some small vertebral body hemangiomata. No suspicious marrow signal abnormalities . Paraspinal soft tissue is unremarkable. Level by level evaluation: T12-L1: Disc does not extend beyond the endplate margin. Facet arthropathy: Mild to moderate right, mild left. Neural foraminal stenosis: No stenosis. Central canal stenosis: No stenosis. L1-L2: There is a minimal diffuse disc bulge. Facet arthropathy: Mild bilateral. Neural foraminal stenosis: No stenosis. Central canal stenosis: No stenosis. L2-L3: There is a mild diffuse disc bulge. Facet arthropathy: Mild. Neural foraminal stenosis: No stenosis. Central canal stenosis: No stenosis. L3-L4: There is a mild to moderate diffuse disc bulge. Facet arthropathy: Mild. Neural foraminal stenosis: Mild bilateral. Central canal stenosis: Mild. L4-L5: There is a moderate diffuse disc bulge, asymmetric to the left. Facet arthropathy: Mild to moderate. Neural foraminal stenosis: Moderate right, mild to moderate left. Central canal stenosis: Mild to moderate. L5-S1: There is a mild to moderate diffuse disc bulge. Facet arthropathy: Moderate right, mild to moderate left. Neural foraminal stenosis: Moderate to severe bilateral, right more than left. Central canal stenosis: Mild. IMPRESSION: 1. L5-S1 moderate to severe neural foraminal stenosis. 2. Moderate disc disease L4-5 and L5-S1. 3. Grade 1 retrolisthesis L4 on L5. Reviewed, dictated and finalized at location B.
== END 2020-06-18 13:32 | disposition home or self-care (01) ==
PROVIDERS: PCP Family Medicine Adolescent Medicine; Visit Provider Orthopaedic Surgery
DX: M54.9 Dorsalgia, unspecified (principal); M48.07 Spinal stenosis, lumbosacral region; M51.87 Other intervertebral disc disorders, lumbosacral region; M43.16 Spondylolisthesis, lumbar region
CPT/HCPCS: 72148

== ENCOUNTER 2020-10-07 11:17 | Outpatient (CLI) | payer BC, SELFPAY ==
--- NOTE | ~2020-10-07 | XR_ITS ---
EXAMINATION: XR chest 2V DATE: 10/07/2020 11:33 INDICATION: Dyspnea. TECHNIQUE: Frontal and lateral views of the chest were obtained. COMPARISON: Chest 2 views 10/25/2019, chest CT 02/17/18 FINDINGS: The chest demonstrates clear lungs without pneumonia, pleural effusion, or pneumothorax. Th e heart size is normal. IMPRESSION: 1. No acute cardiopulmonary disease. Reviewed, dictated and finalized at location B. 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
== END 2020-10-07 11:18 | disposition home or self-care (01) ==
PROVIDERS: PCP Family Medicine Adolescent Medicine; Visit Provider Family Medicine Adolescent Medicine
DX: R06.09 Other forms of dyspnea (principal)
CPT/HCPCS: 71046

== ENCOUNTER → 2021-06-23 03:31 | Outpatient (CLI) | payer BC, SELFPAY ==
[2021-06-23 17:41] LABS: SARS-CoV-2 RNA PCR Positive
== END ==
PROVIDERS: PCP Family Medicine Adolescent Medicine; Visit Provider Family Medicine Adolescent Medicine
DX: U07.1 COVID-19 (principal)
CPT/HCPCS: C9803; U0003; U0005

== ENCOUNTER → 2021-11-14 09:50 | Outpatient (CLI) | payer BC, SELFPAY ==
--- NOTE | ~2021-11-14 | MR_ITS ---
EXAMINATION: MR cervical spine wo con DATE: 11/14/2021 11:25 INDICATION: Neck pain radiating down both arms. TECHNIQUE: Magnetic resonance imaging (MRI) of the cervical spine was performed without intravenous c ontrast. Sequences included sagittal T2-weighted FSE, sagittal STIR FSE, sagittal T1-weighted FSE, ax ial MERGE, and axial T2-weighted FSE. COMPARISON: None FINDINGS: There is 7 degrees levocurvature of cervical spine. There is kyphosis of cervical spine. Ve rtebral body heights are normal. There is mildly decreased disc height at C4-C5 and C5-C6. The spinal cord signal intensity is normal. The following disc levels are specifically discussed: C2-C3: The disc does not extend beyond the endplate margin. There is no uncovertebral joint osteoarth ritis. There is severe right and mild left facet joint osteoarthritis. There is mild right neural for aminal stenosis. There is no central canal stenosis. C3-C4: There is a central protrusion. There is moderate bilateral uncovertebral joint osteoarthritis. There is severe right and mild left facet joint osteoarthritis. There is mild bilateral neural nola inal stenosis. There is no central canal stenosis. C4-C5: There is a right central protrusion. There is mild bilateral uncovertebral joint osteoarthriti s. There is no facet joint osteoarthritis. There is no neural foraminal stenosis. There is mild centr al canal stenosis. C5-C6: The disc is bulging. There is mild bilateral uncovertebral joint osteoarthritis. There is mode rate right and mild left facet joint osteoarthritis. There is mild bilateral neural foraminal stenosi s. There is mild central canal stenosis. C6-C7: There is a central protrusion. There is mild bilateral uncovertebral joint osteoarthritis. The re is severe right and moderate left facet joint osteoarthritis. There is mild right neural foraminal stenosis. There is no central canal stenosis. C7-T1: The disc does not extend beyond the endplate margin. There is no uncovertebral joint osteoarth ritis. There is severe bilateral facet joint osteoarthritis. There is no neural foraminal stenosis. T here is no central canal stenosis. IMPRESSION: 1. Mild cervical spondylosis. Reviewed, dictated and finalized at location A. 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
== END ==
PROVIDERS: PCP Family Medicine Adolescent Medicine; Visit Provider Family Medicine Adolescent Medicine
DX: M79.601 Pain in right arm (principal); M79.602 Pain in left arm; M47.22 Other spondylosis with radiculopathy, cervical region
CPT/HCPCS: 72141

== ENCOUNTER → 2022-01-20 10:26 | Outpatient (CLI) | payer BC, SELFPAY ==
--- NOTE | ~2022-01-20 | MR_ITS ---
EXAMINATION: MR shoulder LT wo con DATE: 01/20/2022 11:22 INDICATION: Anterior left shoulder pain TECHNIQUE: Magnetic resonance imaging (MRI) of the left shoulder was performed without intravenous co ntrast. Sequences included axial PD-weighted FS FSE, coronal oblique PD-weighted FS FSE, coronal obli que T2-weighted FS FSE, sagittal PD-weighted FS FSE, and sagittal T1-weighted SE. COMPARISON: Left shoulder pain FINDINGS: Coracoacromial arch: The acromion undersurface is curved in morphology (type II). The coracoacromial ligament is normal. M ild to moderate acromioclavicular osteoarthritis. Rotator cuff: Ultrasound to moderate supraspinatus and infraspinatus tendinopathy with partial-thickness tear exten ding 12 mm AP along the greater tuberosity footplate of the conjoined portion of the supraspinatus an d infraspinatus tendons. The tear is predominantly intrasubstance involving the inner third of the te ndon however there is however a small component which extends peripherally to involve the articular s urface at the midportion of the tear which measures approximately 4 mm AP. The teres minor tendon is normal. Mild tendinopathy without tear at the distal aspect of the inferior subscapularis tendon. Nor mal rotator cuff muscle bulk and signal. Biceps tendon, glenoid labrum and glenohumeral cartilage: Long head of the biceps tendon is normal. Glenoid labrum is normal. Nondisplaced deep chondral flap t ear with an associated small central subchondral osteophyte at the superomedial aspect of the humeral head. Fluid: Physiologic amount of fluid in the glenohumeral joint and biceps tendon sheath. No loose osteochondr al bodies. Minimal increased fluid signal in the subacromial/subdeltoid bursa and small amount of flu id in the subcoracoid bursa consistent with mild bursitis. Bones: Normal marrow signal with no edema, fracture or abnormal marrow replacing process. IMPRESSION: 1. Small partial-thickness tear of the conjoined portion of the supraspinatus and infraspinatus tendo ns, primarily intrasubstance with very small bursal sided component. 2. Mild glenohumeral osteoarthritis with small region of high-grade chondromalacia with nondisplaced chondral flap tear at the superomedial aspect of the humeral head. 3. Mild subacromial/subdeltoid and subcoracoid bursitis. 4. Mild to moderate acromioclavicular osteoarthritis. Reviewed, dictated and finalized at location A. IMPRESSION: 1. Small partial-thickness tear of the conjoined portion of the supraspinatus a nd infraspinatus tendons, primarily intrasubstance with very small bursal sided component. 2. Mild glenohumeral osteoarthritis with small region of high-grade chondromala jacqueline with nondisplaced chondral flap tear at the superomedial aspect of the sushma ral head. 3. Mild subacromial/subdeltoid and subcoracoid bursitis. 4. Mild to moderate acromioclavicular osteoarthritis.
== END ==
PROVIDERS: PCP Family Medicine Adolescent Medicine; Visit Provider Orthopaedic Surgery
DX: M25.512 Pain in left shoulder (principal); M75.112 Incomplete rotator cuff tear or rupture of left shoulder, not specified as traumatic; M19.012 Primary osteoarthritis, left shoulder; M94.212 Chondromalacia, left shoulder; M75.52 Bursitis of left shoulder
CPT/HCPCS: 73221

== ENCOUNTER → 2022-01-24 14:19 | Outpatient (CLI) | payer BC, SELFPAY ==
--- NOTE | ~2022-01-24 | MR_ITS ---
EXAMINATION: MR shoulder RT wo con DATE: 01/24/2022 14:53 INDICATION: Right shoulder pain TECHNIQUE: Magnetic resonance imaging (MRI) of the right shoulder was performed without intravenous c ontrast. Sequences included axial PD-weighted FS FSE, coronal oblique PD-weighted FS FSE, coronal obl ique T2-weighted FS FSE, sagittal PD-weighted FS FSE, and sagittal T1-weighted SE. COMPARISON: Right shoulder radiographs dated 01/08/2022 FINDINGS: Coracoacromial arch: The acromion undersurface is curved in morphology (type II). The coracoacromial ligament is normal. M oderate acromioclavicular osteoarthritis. Rotator cuff: Moderate supraspinatus and infraspinatus tendinopathy is prominent at the conjoined portion of the te ndon where there is a small intrasubstance tear along the superior facet footplate measuring approxim ately 5 mm AP and involving approximately the central third of the tendon thickness. The teres minor tendon is normal. Mild subscapularis tendinopathy without discrete tear. Normal rotator cuff muscle b ulk and signal. Biceps tendon, glenoid labrum and glenohumeral cartilage: Long head of the biceps tendon is normal. Linear cleft of fluid at the 12:30 position of the anterosu perior labrum which could represent a normal sublingual sulcus however the contour of the cleft appea rs somewhat irregular and suggests this could also represent a small tear. Glenohumeral cartilage is normal. Fluid: Physiologic amount of fluid in the glenohumeral joint and biceps tendon sheath. No loose osteochondr al bodies. No abnormal fluid signal in the subacromial/subdeltoid bursa to suggest bursitis. Bones: Normal marrow signal with no edema, fracture or abnormal marrow replacing process. IMPRESSION: 1. Moderate supraspinatus and infraspinatus tendinopathy with very small and mild partial-thickness i ntrasubstance tear at the footplate of the conjoined portion of the tendon. 2. Possible small tear versus a subtle labral sulcus at the anterosuperior labrum. 3. Moderate acromioclavicular osteoarthritis. Reviewed, dictated and finalized at location A. IMPRESSION: 1. Moderate supraspinatus and infraspinatus tendinopathy with very small and mi ld partial-thickness intrasubstance tear at the footplate of the conjoined port ion of the tendon. 2. Possible small tear versus a subtle labral sulcus at the anterosuperior labr um. 3. Moderate acromioclavicular osteoarthritis.
== END ==
PROVIDERS: PCP Family Medicine Adolescent Medicine; Visit Provider Orthopaedic Surgery
DX: M19.011 Primary osteoarthritis, right shoulder (principal)
CPT/HCPCS: 73221

== ENCOUNTER 2022-01-31 02:00 | Day surgery (SDC) | payer BC, SELFPAY ==
--- NOTE | 2022-01-29 14:57 | PC.NURSE ---
Report to the Outpatient Waiting Room, entrance under the green pavilion located off [facility], at time _1000 AM on date 01/31/22 . OR Time: 1200 PM . - You and your visitor will be asked a series of questions to screen for COVID 19 for your protection. - Only one visitor is allowed at this time. - The patient visitor is requested to leave or wait in car when not with patient. - A mask is required within the hospital. Patients may have clear liquids (water, carbonated beverages, clear teas, apple juice) until 3 hours prior to surgery with a maximum of 20 ounces. - No food from midnight until time of surgery - Infants may have breast milk until 4 hours before surgery, formula 6 hours prior to surgery. - Children will be allowed to drink immediately following surgery. If applicable, please bring a bottle or sippy cup to assist with drinking. Juice, water, soda, and popsicles are readily available. For infants on formula, please bring formula the day of surgery. Pacifiers are allowed. Take the following medications with a SIP of water the morning of surgery: _AMLODIPINE,LEVOTHYROXIN__AND METOPROLOL Medications to discontinue per physician __XARELTO__PER DR CARVER_. DR CARVER AWARE LAST DOSE WAS TODAY Date to take last dose___01/29/22 Please no make-up, nail saudi arabian, hairspray, perfume, deodorant, or body powder the day of surgery. No jewelry (including any body piercings) or valuables the day of surgery, leave them at home. Please take a shower or bath the night before, or the morning of, surgery with an antibacterial soap. Wear comfortable, loose fitting clothing. Children are encouraged to wear pajamas. - Jewelry must be removed prior to entering the operating room. Rings and piercings that are not removed may be cut off. - The hospital will not accept responsibility for valuables. - Please leave all valuables, including medications, at home the day of surgery. If you are going home after surgery, a licensed regional driver must drive you home. - NO public transportation without another adult. - We recommend that an adult stay with you for 24 hours following discharge. - We also recommend that you do not drive, make important decision, drink alcoholic beverages, or take any drugs that were not prescribed by your health care provider for at least 24 hours after your discharge time. For Pediatric surgeries, we recommend two adults accompany the child home (only one inside the building at this time). Follow any additional instructions given to you from your surgeon. If you or anyone in your household have experienced Covid symptoms in the past week, please notify your surgeon or the nurse liaison at the phone number below for possible testing. Telephone instructions given to PATIENT and asked if any additional questions and then verbalized understanding. Patient advised to call surgeon office or pre surgery nurse liaison [phone] if any additional questions.
[2022-01-29 15:08] VITALS: BMI 32.9
--- NOTE | 2022-01-30 09:35 | WPDANESEPPF ---
Anes - Initial Pre Proc Eval Procedure: Operation Date: 01/31/22 12:00 Proposed Procedures p Right Rotator Cuff Repair with Distal Clavicle Excision - Lester Mathews MD Date/Time: 01/30/22 09:35 Surgeon: Lester Mathews MD Pre Op Diagnosis: right rotator cuff tear Patient Data Age: 61 Gender: M Height: 1.75 m Weight: 101.15 kg Allergies Allergy/AdvReac Type Severity Reaction Status Date / Time No Known Drug Allergies Allergy Unknown Unknown Verified 01/31/22 08:45 Home Medications Medication Instructions Recorded Confirmed Type metoprolol succinate 100 mg PO DAILY #30 tablet 10/27/19 01/31/22 Rx testosterone enanthate 200 mg DAILY 03/04/20 01/31/22 History rivaroxaban 20 mg tablet 20 mg PO DAILY #90 tablet 10/02/21 01/31/22 Rx levothyroxine 125 mcg tablet 125 mcg PO DAILY #90 tablet 10/13/21 01/31/22 Rx zolpidem 10 mg tablet 10 mg PO QHS PRN #30 tablet 10/27/21 01/31/22 Rx amlodipine 5 mg tablet 5 mg PO DAILY 11/02/21 01/31/22 History celecoxib 200 mg capsule 200 mg PO DAILY 11/02/21 01/29/22 History olmesartan 40 mg tablet 40 mg PO DAILY #90 tablet 11/16/21 01/31/22 Rx clobetasol 0.05 % topical cream 1 applic TOPICAL DAILY #30 g 01/15/22 01/31/22 Rx modafinil 200 mg tablet See Rx Instructions PO QAM #30 01/24/22 01/31/22 Rx tablet chlorhexidine gluconate 4 % 1 applic TOPICAL ONCE 3 Days #237 01/29/22 01/31/22 Rx topical liquid ml hydrocodone 5 mg-acetaminophen 325 1 tablet PO TID PRN #30 tablet 01/29/22 01/31/22 Rx mg tablet tamsulosin 0.4 mg PO DAILY 01/29/22 01/31/22 History montelukast 10 mg tablet 10 mg PO DAILY #90 tablet 01/31/22 Rx tadalafil 20 mg tablet 20 mg PO DAILY PRN #6 tablet 01/31/22 Rx Patient hx anesthesia problems: none Family hx anesthesia problems: none Results Review: All pre-operative results and documents have been reviewed as part of the pre-operative evaluation. [facility] Past Medical History Medical History (Updated 01/25/22 @ 09:42 by Lester Mathews MD) Anemia Chronic back pain Secondary to degenerative disc disease in the cervical spine and at L3-L4. He has a history of nerve ablation in his neck for chronic headaches. 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 Hypertension Hypogonadism On testosterone. Hypothyroidism Osteoarthritis Paroxysmal atrial fibrillation Status post cardioversion in October 2019. Polycythemia With therapeutic phlebotomy on a near monthly basis. Pulmonary embolism Surgical History Surgical History History of arthroscopy of left knee (~2014) History of total left hip arthroplasty (~02/2020) History of total right hip arthroplasty (~01/2014) Status post right inguinal herniorrhaphy Family History Family History Father Diabetes mellitus Mother Afib Hypertension Grandparent Cerebrovascular accident Other Acute myocardial infarction Social History Social History Social History: Surrogate decision maker: Eyal Lujan, . Code status: Full code. Smoking status: Never smoker Second hand tobacco smoke exposure: No Alcohol intake: never Substance use: never Substance use type: does not use Living arrangements: with family Additional living arrangements comments: Lives with his in [place]. 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 Gender identity (if verbalized by the patient): Male Sexual Orientation (if Verbalized by the Patient): Straight or Heterosexual Spiritual care concerns: No Agree to blood products: Yes Anes - Eval Final PreProcedure Day of Procedure 01/30/22 09:35 Patient weight: obese Heart: regular rate and rhythm Lungs: clear to auscultation and normal air movement Airway: Mallampati scale c
[2022-01-31] VITALS (8 sets, daily range): BP systolic 93–132; BP diastolic 60–85; PULSE 51–61; RESP 13–20; TEMP 36.2–36.4; O2SAT 95–99
--- NOTE | 2022-01-31 07:48 | WPDHPUPDATE1 ---
History and Physical Update Update Date/Time: 01/31/22 07:48 History and Physical has been reviewed, including an updated exam of the patient. There are NO changes in the patient's condition. Risks, benefits, and alternatives have been discussed and questions answered. Patient agrees to proceed with procedure.
--- NOTE | 2022-01-31 08:12 | ECG_ITS ---
Measurements Intervals [place] Rate: 52 P: 46 MA: 158 QRS: 23 QRSD: 123 T: -19 QT: 389 QTc: 362 Interpretive Statements SINUS BRADYCARDIA RIGHT BUNDLE BRANCH BLOCK ST-T WAVE ABNORMALITY IN INFERIOR LEADS- CONSIDER ISCHEMIA ABNORMAL ECG Electronically Signed On 01-31-2022 10:21:02 CDT by Tarik Mata D.O.
--- NOTE | 2022-01-31 09:40 | WPDANESPNB ---
Anes - Peripheral Nerve Block Date/Time: 01/31/22 09:40 I have discussed with the patient/family/POA the placement of a peripheral nerve block for post-operative pain management, including associated risks, benefits, complications, and side effects. Alternative methods of post-operative analgesia were detailed. Questions were solicited and answers provided to the satisfaction of the patient/family/POA. Time-Out: A pre-procedural Time-Out was completed immediately before starting the procedure and confirmed: Patient Identification, Site, Procedure, Patient Position and the Availability of Requisite Equipment. Clinical Indications: Acute post-operative pain management requested by the operative surgeon. Nerve Block Insertion Note Anes-nerve block: supraclavicular right Patient position: supine Skin prep: chlorhexidine Needle: 22 gauge, stimulating, insulated echogenic needle. Needle length: 80 mm Technique: ultrasound (in plane) Injectate: bupivacaine 0.5% with epi 5 mcg/ml (20cc) Observations: tolerated well Complications: none Procedure start time:: 1105 Procedure end time:: 1110
[2022-01-31] MEDS: CELECOXIB 200 MG CAPSULE PO (10:01)
[2022-01-31] MEDS: ACETAMINOPHEN 500 MG TABLET 1000 MG PO (10:01)
[2022-01-31] MEDS: LACTATED RINGERS 1,000 ML 30 ML IV CONT ×2 (10:05→14:09)
[2022-01-31] MEDS: ceFAZolin 2 GM/D5W 50 ML 2 GM/50 ML BAG IVPB (11:27)
--- NOTE | 2022-01-31 14:36 | W.PM.PROC2 ---
Procedure Note - Detailed Date of Procedure 01/31/22 Pre-op Diagnosis right rotator cuff tear, ac joint djd Post-op Diagnosis Same Procedure Performed REPAIR RIGHT ROTATOR CUFF WITH DCE Surgeon Lester Mathews MD Anesthesia General Description of Procedure THE PATIENT WAS TAKEN TO THE OPERATING ROOM AND THEN INTUBATED AND PLACED IN THE BEACH CHAIR POSITION. THE RIGHT UPPER EXTREMITY WAS PREPPED AND DRAPED IN THE NORMAL STERILE FASHION. AN INCISION WAS MADE IN BETWEEN THE CRISTAL-LATERAL ACROMION AND THE AC JOINT. THE AC JOINT WAS IDENTIFIED AND AN INCISION WAS MADE OVER THE JOINT CAPSULE. THE AC JOINT WAS EXPOSED. THERE WAS SIGNIFICANT AMOUNT OF DJD. A DISTAL CLAVICLE EXCISION WAS PREFORMED REMOVING 1 CM OF BONE FROM THE DISTAL CLAVICLE. BONE SPURS WERE REMOVED FROM THE UNDERSURFACE OF THE AC JOINT WELL. THE WOUND WAS WASHED AND THEN THE CAPSULE OF THE AC JOINT WAS REPAIRED WITH 0 VICRYL SUTURE. THE ACROMION FASCIA WAS IDENTIFIED. NEXT A MINI OPEN INCISION WAS MADE THROUGH THE DELTOID MUSCLE EXPOSING THE SUBACROMIAL SPACE. A LIMITED ACROMIOPLASTY WAS PREFORMED. THE ROTATOR CUFF WAS IDENTIFIED. THERE WAS A FULL THICKNESS TEAR. IT MEASURED APPROXIMATELY 1 CM X 1 CM. THE GREATER TUBEROSITY WAS DEBRIDED TO BLEEDING BONE. 1 ARTHREX 5.5 SUTURE ANCHOR WAS PLACED IN TO GOOD BONE AND HAD VERY GOOD BITE. GISELL-TANIYA TYPE REPAIRS WERE DONE TO THE ROTATOR CUFF AND THERE WAS GOOD APPROXIMATION TO THE GREATER TUBEROSITY. THE REPAIR WAS EXCELLENT. THERE WAS NO IMPINGEMENT ON THE REPAIR FROM THE ACROMION WITH RANGE OF MOTION. THE WOUND WAS IRRIGATED WITH COPIOUS AMOUNTS OF ANTIBIOTIC SOLUTION INCLUDING STERILE BETADINE AND WATER AND WATER WITH H202. THE DELTOID MUSCLE WAS REPAIRED WITH #2 FIBER WIRE AND 0 VICRYL SUTURE. THE SUBCUTANEOUS LAYER WAS APPROXIMATED WITH 2-0 VICRYL. THE SKIN WAS APPROXIMATED WITH 3-0 QUIL AND DERMABOND. STERILE DRESSING WAS APPLIED. PATIENT WAS EXTUBATED. Estimated Blood Loss 40 Complications No immediate complications Condition Stable Disposition PACU
--- NOTE | 2022-01-31 18:18 | SUR.PHASEII ---
Per Dr. Mathews it's okay for patient to resume Xarelto tomorrow (02-01-2022). RN called spouse, Luann, and told her about the Xarelto.
== END 2022-01-31 16:03 | disposition home or self-care (01) ==
PROVIDERS: PCP Family Medicine Adolescent Medicine; Visit Provider Orthopaedic Surgery
PROC: (CPT 23420; principal; 2022-01-31 10:30)
DX: M75.121 Complete rotator cuff tear or rupture of right shoulder, not specified as traumatic (principal); M19.011 Primary osteoarthritis, right shoulder; G89.18 Other acute postprocedural pain; M47.812 Spondylosis without myelopathy or radiculopathy, cervical region; M47.816 Spondylosis without myelopathy or radiculopathy, lumbar region; I10 Essential (primary) hypertension; E03.9 Hypothyroidism, unspecified; I48.0 Paroxysmal atrial fibrillation; Z86.711 Personal history of pulmonary embolism; D64.9 Anemia, unspecified; E29.1 Testicular hypofunction; Z79.890 Hormone replacement therapy; Z79.891 Long term (current) use of opiate analgesic; Z79.01 Long term (current) use of anticoagulants; E66.9 Obesity, unspecified; Z68.33 Body mass index [BMI] 33.0-33.9, adult
CPT/HCPCS: 23412; 23120; 64415; 93005; A9270; C1713; J0330; J0690; J1100; J2250; J2405; J2704; J3010; J7120

== ENCOUNTER 2022-02-14 01:13 | Day surgery (SDC) | payer BC, SELFPAY ==
--- NOTE | 2022-02-13 13:44 | PC.NURSE ---
Report to the Outpatient Waiting Room, entrance under the green pavilion located off [facility], at time _1330 on date _02/14/22 . OR Time: ___1530 . - You and your visitor will be asked a series of questions to screen for COVID 19 for your protection. - Only one visitor is allowed at this time. - The patient visitor is requested to leave or wait in car when not with patient. - A mask is required within the hospital. Patients may have clear liquids (water, carbonated beverages, clear teas, apple juice) until 3 hours prior to surgery with a maximum of 20 ounces. - No food from midnight until time of surgery - Infants may have breast milk until 4 hours before surgery, infant formula 6 hours prior to surgery. - Children will be allowed to drink immediately following surgery. If applicable, please bring a bottle or sippy cup to assist with drinking. Juice, water, soda, and popsicles are readily available. For infants on formula, please bring formula the day of surgery. Pacifiers are allowed. Take the following medications with a SIP of water the morning of surgery: __AMLODIPINE,LEVOTHYROXINE,METOPROLOL Medications to discontinue per physician ___NONE Date to take last dose Please no make-up, nail sao tomean, hairspray, perfume, deodorant, or body powder the day of surgery. No jewelry (including any body piercings) or valuables the day of surgery, leave them at home. Please take a shower or bath the night before, or the morning of, surgery with an antibacterial soap. Wear comfortable, loose fitting clothing. Children are encouraged to wear pajamas. - Jewelry must be removed prior to entering the operating room. Rings and piercings that are not removed may be cut off. - The hospital will not accept responsibility for valuables. - Please leave all valuables, including medications, at home the day of surgery. If you are going home after surgery, a licensed local [place] truck driver must drive you home. - NO public transportation without another adult. - We recommend that an adult stay with you for 24 hours following discharge. - We also recommend that you do not drive, make important decision, drink alcoholic beverages, or take any drugs that were not prescribed by your health care provider for at least 24 hours after your discharge time. For Pediatric surgeries, we recommend two adults accompany the child home (only one inside the building at this time). Follow any additional instructions given to you from your surgeon. If you or anyone in your household have experienced Covid symptoms in the past week, please notify your surgeon or the nurse liaison at the phone number below for possible testing. Telephone instructions given to __PATIENT and asked if any additional questions and then verbalized understanding. Patient advised to call surgeon office or pre surgery nurse liaison [phone] if any additional questions.
[2022-02-13 13:48] VITALS: BMI 32.9
[2022-02-14] VITALS (13 sets, daily range): BP systolic 117–146; BP diastolic 54–95; PULSE 62–97; RESP 8–20; TEMP 36.4–36.8; O2SAT 95–100; BMI 32.8
--- NOTE | 2022-02-14 07:11 | WPDHPUPDATE1 ---
History and Physical Update Update Date/Time: 02/14/22 07:11 History and Physical has been reviewed, including an updated exam of the patient. There are NO changes in the patient's condition. Risks, benefits, and alternatives have been discussed and questions answered. Patient agrees to proceed with procedure.
--- NOTE | 2022-02-14 14:18 | WPDANESEPPF ---
Anes - Initial Pre Proc Eval Procedure: Operation Date: 02/14/22 15:30 Proposed Procedures p Incision and Drainage Right Shoulder Hematoma - Lester Mathews MD Date/Time: 02/14/22 14:19 Surgeon: Lester Mathews MD Pre Op Diagnosis: right shoulder post op hematoma Patient Data Age: 61 Gender: M Height: 1.75 m Weight: 101.15 kg Allergies Allergy/AdvReac Type Severity Reaction Status Date / Time No Known Drug Allergies Allergy Unknown Unknown Verified 02/13/22 11:32 Home Medications Medication Instructions Recorded Confirmed Type metoprolol succinate 200 mg 100 mg PO DAILY #30 tabs 10/27/19 02/13/22 Rx tablet,extended release 24 hr testosterone enanthate 200 mg/mL 200 mg DAILY 03/04/20 02/13/22 History intramuscular oil rivaroxaban 20 mg tablet (Xarelto) 20 mg PO DAILY #90 tabs 10/02/21 02/13/22 Rx levothyroxine 125 mcg tablet 125 mcg PO DAILY #90 tabs 10/13/21 02/13/22 Rx zolpidem 10 mg tablet 10 mg PO QHS PRN sleep #30 tabs 10/27/21 02/13/22 Rx amlodipine 5 mg tablet 5 mg PO DAILY 11/02/21 02/13/22 History olmesartan 40 mg tablet 40 mg PO DAILY #90 tabs 11/16/21 02/13/22 Rx clobetasol 0.05 % topical cream 1 applic topical DAILY #30 grams 01/15/22 02/13/22 Rx modafinil 200 mg tablet See Rx Instructions PO QAM #30 tabs 01/24/22 02/13/22 Rx tamsulosin 0.4 mg capsule 0.4 mg PO DAILY 01/29/22 02/13/22 History tadalafil 20 mg tablet 20 mg PO DAILY PRN sexual activity 01/31/22 02/13/22 Rx #6 tabs montelukast 10 mg tablet 10 mg PO PRN PRN Allergy Symptoms 02/13/22 02/13/22 History (Singulair) nystatin 100,000 unit/gram topical 1 applic topical TID #15 grams 02/13/22 02/13/22 Rx powder Patient hx anesthesia problems: none Family hx anesthesia problems: none Results Review: All pre-operative results and documents have been reviewed as part of the pre-operative evaluation. [facility] Past Medical History Medical History Anemia Chronic back pain Secondary to degenerative disc disease in the cervical spine and at L3-L4. He has a history of nerve ablation in his neck for chronic headaches. Current use of [facility] anticoagulation Fat embolism (~2014) Post right hip replacement. Hypertension Hypogonadism On testosterone. Hypothyroidism Osteoarthritis Paroxysmal atrial fibrillation Status post cardioversion in October 2019. Polycythemia With therapeutic phlebotomy on a near monthly basis. Postoperative bleeding from incision Pulmonary embolism Surgical History Surgical History History of arthroscopy of left knee (~2014) History of total left hip arthroplasty (~02/2020) History of total right hip arthroplasty (~01/2014) Status post right inguinal herniorrhaphy Family History Family History Father Diabetes mellitus Mother Afib Hypertension Grandparent Cerebrovascular accident Other Acute myocardial infarction Social History Social History Social History: Surrogate decision maker: Eyal Lujan, . Code status: Full code. Smoking status: Never smoker Second hand tobacco smoke exposure: No Alcohol intake: never Substance use: never Substance use type: does not use Living arrangements: with family Additional living arrangements comments: Lives with his in [place]. 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 Gender identity (if verbalized by the patient): Male Sexual Orientation (if Verbalized by the Patient): Straight or Heterosexual Spiritual care concerns: No Agree to blood products: Yes Anes - Eval Final PreProcedure Day of Procedure 02/14/22 14:19 Patient weight: obese Heart: regular rate and rhythm Lungs: clear to auscultation Airway: Mallampati scale cl
[2022-02-14] MEDS: ACETAMINOPHEN 500 MG TABLET 1000 MG PO (14:30)
[2022-02-14] MEDS: LACTATED RINGERS 1,000 ML 30 ML IV CONT ×2 (14:30→17:15)
[2022-02-14] MEDS: KETOROLAC 15 MG/ML VIAL (*BKC) IV PUSH (14:30)
[2022-02-14 14:42] LABS: Basophils Percent Auto 0.7 % (0.2-1.2); Eosinophils Absolute Auto 0.1 K/mm3 (0-0.3); Eosinophils Percent Auto 1.5 % (0-4.4); Hematocrit 49.8 % (42.0-52.0); Hemoglobin 16.4 g/dL (14.0-18.0); Immature Granulocyte Absolute 0.02 K/mm3 (0.00-0.031); Immature Granulocyte Percent A 0.3 % (0-0.5); Lymphocytes Absolute Auto 1.03 K/mm3 (0.9-3.2); Lymphocytes Percent Auto 17.1 % (18.3-44.2); Mean Corpuscular HGB Conc 32.9 g/dl (32-36); Mean Corpuscular Volume 91.2 fl (80-100); Mean Platelet Volume 10.5 fl (7.4-10.4); Monocytes Absolute Auto 0.3 K/mm3 (0.1-0.6); Monocytes Percent Auto 5.5 % (2.6-8.5); Neutrophils Absolute Auto 4.5 K/mm3 (1.3-6.7); Neutrophils Percent Auto 74.9 % (45.5-73.1); Platelet Count Result 199 k/mm3 (150-375); Red Blood Count 5.46 M/mm3 (4.6-6.20); Red Cell Distribution Width 13.1 % (11.5-14.5)
[2022-02-14 14:56] LABS: CRP 1.7 mg/dL (<1.0)
[2022-02-14] MEDS: ceFAZolin 2 GM/D5W 50 ML 2 GM/50 ML BAG IVPB ×2 (16:36→23:43)
--- NOTE | 2022-02-14 17:16 | ECG_ITS ---
Measurements Intervals [place] Rate: 84 P: 35 SC: 156 QRS: 16 QRSD: 124 T: -28 QT: 315 QTc: 373 Interpretive Statements SINUS RHYTHM LATERAL MYOCARDIAL INFARCTION , PROBABLY RECENT Electronically Signed On 02-14-2022 21:42:18 CDT by Ben Sin M.D.
--- NOTE | 2022-02-14 17:19 | W.PM.PROC2 ---
Procedure Note - Detailed Date of Procedure 02/14/22 Pre-op Diagnosis right shoulder post op hematoma Post-op Diagnosis Same Procedure Performed I AND D RIGHT SHOULDER WOUND Surgeon Lester Mathews MD Findings HEMATOMA Description of Procedure THE PATIENT WAS TAKEN TO THE OPERATING ROOM AND PLACED UNDER GENERAL ANESTHESIA. HE WAS THEN PLACED IN THE BEACH CHAIR POSITION. THE RIGHT UPPER EXTREMITY WAS PREPPED AND DRAPED IN THE USUAL STERILE FASHION. AN INCISION WAS MADE OVER THE ORIGINAL INCISION DOWN THROUGH THE SUBCUTANEOUS TISSUES. HEMATOMA WAS DRAINING FROM THE SUB CUTANEOUS SPACE. CULTURES WERE TAKEN ANTIBIOTICS WERE STARTED AFTER CULTURES WERE TAKEN. THERE WAS NO GROSS PURULENCE. THE FASCIA LAYER WAS IDENTIFIED. THERE WAS NO VIOLATION OF THE SUBACROMIAL SPACE. THE SHOULDER WAS TAKEN THROUGH A ROM AND THERE WAS NO FLUID COMING FROM THE SUBACROMIAL SPACE. THE HEMATOMA WAS CONTAINED TO THE SUB CUTANEOUS SPACE. THE WOUND WAS WASHED WITH A SERIES OF IRRIGATION CONSISTING OF STERILE WATER, 1/2 STRENGTH SALINE WITH H202, AND 1/2 STRENGTH STERILE BETADINE AND SALINE. THE BLEEDERS WERE CAUTERIZED. A DRAIN WAS PLACED IN THE SUB CUTANEOUS SPACE. THE SKIN WAS APPROXIMATED WITH 3-0 PROLINE. STERILE DRESSING WAS APPLIED. THE PATIENT WAS EXTUBATED AND TAKEN TO THE RECOVERY ROOM IN STABLE CONDITION Estimated Blood Loss 50 Drains Yes Complications No immediate complications Disposition PACU
--- NOTE | 2022-02-14 17:29 | SUR.PHASEI ---
DR. LUEVANO HERE TO SEE PT; ORDERED AN EKG. PATIENT DENIES CHEST PAIN, SOB.
--- NOTE | 2022-02-14 17:35 | SUR.PHASEI ---
PORTABLE EKG IN PROGRESS.
[2022-02-14] MEDS: fentaNYL CITRATE INJ (*CRX) 100 MCG/2 ML VIAL 25 MCG IV PUSH ×3 (17:43→18:56)
--- NOTE | 2022-02-14 17:45 | SUR.PHASEI ---
DR. LUEVANO CALLING CARDIOLOGY FOR A CONSULT RE: ABNORMAL EKG.
--- NOTE | 2022-02-14 18:12 | SUR.PHASEI ---
DR. LUEVANO SPOKE TO PATIENT RE: ADMISSION TO MONITOR CARDIAC STATUS.
--- NOTE | 2022-02-14 18:22 | P.PNAN_ITS ---
Anes - Prog Note Post-Op Date/Time: 02/14/22 18:22 Cardiovascular status: normal Respiratory status: normal Airway patency: baseline Mental status: baseline Post-Op hydration status: normal Vital Signs: Last Vital Signs Temp 36.4 C 02/14/22 17:15 Pulse 71 02/14/22 18:00 Resp 10 L 02/14/22 18:00 BP 133/83 02/14/22 18:00 Pulse Ox 100 02/14/22 18:00 O2 Del Method Simple Face Mask 02/14/22 18:00 O2 Flow Rate 8 02/14/22 18:00 Pain Score (VAS): 2 I/O: Intake & Output 02/14/22 02/14/22 02/14/22 07:59 15:59 23:59 Intake Total 1050 Balance 1050 Laboratory Tests 02/14/22 14:34 02/14/22 02/14/22 14:34 14:34 WBC 6.0 RBC 5.46 Hgb 16.4 Hct 49.8 MCV 91.2 MCH 30.0 MCHC 32.9 RDW 13.1 Plt Count 199 MPV 10.5 H Immature Gran % (Auto) 0.3 Neut % (Auto) 74.9 H Lymph % (Auto) 17.1 L [place] % (Auto) 5.5 Eos % (Auto) 1.5 Baso % (Auto) 0.7 Lymph # (Auto) 1.03 [place] # (Auto) 0.3 Eos # (Auto) 0.1 Baso # (Auto) 0.0 Abs Immat Gran (auto) 0.02 Absolute Neuts (auto) 4.5 Absolute Nucleated RBC 0.0 Nucleated RBC % 0.0 C-Reactive Protein 1.7 H Microbiology 02/14/22 16:33 Shoulder Right Gram Stain - Final Post-procedural complaints: none Other Findings: During the procedure, patient's hypotension and bradycardia was treated with ephedrine. Dosages of 5 mg were given a few times minutes apart. At one point HR shot through to the 110's and then back to down to 39 within a few seconds. MARILYN Bartlett noted that rhythm appeared different after this fluctuation than it did prior to. An EKG was ordered in PACU to compare to old EKG. Patient remains asymptomatic while awake in PACU however there were T wave inversions in V4-6 that were new in comparison to old EKG. Dr. Pearce from cardiology was consulted because of this. Patient admitted overnight with serial troponins.
[2022-02-14 18:47] LABS: Troponin I < 0.012 ng/mL (0.000-0.034)
--- NOTE | 2022-02-14 19:34 | ADMGEN ---
This patient, Minor Solis Le Doyle, was admitted to IMU Room 207-01 at 1925. Patient/family oriented to hospital policies and general routines including ID bracelet, bed and alarms, visiting hours, pain management, procedures, bathroom and other care routines, personal items, smoking policy, room service/diet, and visiting hours. Information on how to activate the Rapid Response Team has been discussed. Patient/Family are encouraged to report perceived risks to care and to ask questions if they do not understand what they are told or what they should do.
[2022-02-14] MEDS: HYDROcodone/acetaminophen (*CRX) 7.5-325 MG TABLET 1 TAB PO (21:04)
[2022-02-14] MEDS: KCL 20 MEQ/D5/0.45% SOD CHL 1,000 ML 80 ML IV CONT (21:04)
[2022-02-15] VITALS (9 sets, daily range): BP systolic 110–129; BP diastolic 67–79; PULSE 56–79; RESP 15–20; TEMP 36.5–37.2; O2SAT 97–99
[2022-02-15] MEDS: HYDROcodone/acetaminophen (*CRX) 7.5-325 MG TABLET 1 TAB PO ×3 (03:03→15:00)
[2022-02-15 04:52] LABS: Basophils Percent Auto 0.3 % (0.2-1.2); Eosinophils Absolute Auto 0.1 K/mm3 (0-0.3); Eosinophils Percent Auto 1.3 % (0-4.4); Hemoglobin 15.2 g/dL (14.0-18.0); Immature Granulocyte Absolute 0.02 K/mm3 (0.00-0.031); Immature Granulocyte Percent A 0.3 % (0-0.5); Lymphocytes Absolute Auto 1.04 K/mm3 (0.9-3.2); Lymphocytes Percent Auto 16.7 % (18.3-44.2); Mean Corpuscular HGB Conc 31.7 g/dl (32-36); Mean Corpuscular Hemoglobin 29.6 pg (26-34); Mean Corpuscular Volume 93.4 fl (80-100); Mean Platelet Volume 10.4 fl (7.4-10.4); Monocytes Absolute Auto 0.4 K/mm3 (0.1-0.6); Monocytes Percent Auto 6.4 % (2.6-8.5); Neutrophils Absolute Auto 4.7 K/mm3 (1.3-6.7); Platelet Count Result 176 k/mm3 (150-375); Red Blood Count 5.14 M/mm3 (4.6-6.20); Red Cell Distribution Width 13.1 % (11.5-14.5); White Blood Count 6.2 K/mm3 (4.5-10.0)
[2022-02-15 05:04] LABS: Anion Gap 1 mmol/L (8-16); Blood Urea Nitrogen 13 mg/dL (9-20); Carbon Dioxide 29 mmol/L (22-30); Chloride 104 mmol/L (98-107); Estimated CRCL calculation 72 ml/min; Estimated Glomerular Filt Rate > 60; Glucose 100 mg/dL (65-110); Potassium 4.2 mmol/L (3.4-5.0); Sodium 134 mmol/L (137-145)
[2022-02-15] MEDS: LEVOTHYROXINE SODIUM 125 MCG TABLET PO (05:29)
[2022-02-15] MEDS: TAMSULOSIN HCL 0.4 MG CAPSULE PO (08:36)
[2022-02-15] MEDS: OLMESARTAN MEDOXOMIL 20 MG TABLET 40 MG PO (08:36)
[2022-02-15] MEDS: METOPROLOL SUCCINATE EXT REL 100 MG TABCR PO (08:37)
[2022-02-15] MEDS: amLODIPine BESYLATE 5 MG TABLET PO (08:39)
[2022-02-15] MEDS: ceFAZolin 2 GM/D5W 50 ML 2 GM/50 ML BAG IVPB (08:39)
--- NOTE | 2022-02-15 09:02 | ECHO_ITS ---
Patient Info Name: Minor Lujan Age: 61 years : 1960 Gender: Male Ht: 69 in Wt: 222 lbs BSA: 2.25 m2 HR: 62 bpm BP: 129 / 79 mmHg Heart Rhythm: Sinus Rhythm Exam Date: 02/15/2022 10:06 AM Exam Location: [facility] Pulmonary Patient Status: Inpatient Admit Date: 02/14/2022 Staff Ordering Physician: Curt Jenkins MD Title Clerk Automobile: Suman Agarwal, [place], [place] Attending Provider: Lester Mathews MD Referring Physician: Alice MARTINEZ; Exam Type: CA echo dop color flow w con Study Info Indications R94.31 - Abnormal electrocardiogram ECG EKG Complete two-dimensional, color flow and Doppler transthoracic echocardiogram is performed with contrast to opacify the left ventricle and to improve the deliniation of the left ventricle endocardial borders. Summary 1. Technically difficult study with limited views. Definity contrast enhancement administered. 2. Left ventricular chamber dimension is normal. 3. Left ventricular systolic function is normal, estimated at 55-60%. 4. There is moderately increased left ventricular wall thickness. 5. Left ventricular septal wall motion is abnormal with septal motion related to bundle branch block. 6. The left ventricular diastolic function is grade II diastolic dysfunction. 7. There is trace tricuspid valve regurgitation. 8. No pulmonary hypertension, estimated pulmonary arterial systolic pressure is 30 mmHg. Left Ventricle Left ventricular chamber dimension is normal. Left ventricular systolic function is normal, estimated at 55-60%. There is moderately increased left ventricular wall thickness. Left ventricular septal wall motion is abnormal with septal motion related to bundle branch block. The left ventricular diastolic function is grade II diastolic dysfunction. Technically difficult study with limited views. Definity contrast enhancement administered. Right Ventricle Right ventricular chamber dimension is normal. Right ventricular systolic function is normal. Left Atria Left atrial chamber dimension is mildly enlarged. Right Atria Right atrial chamber dimension is mildly enlarged. Aortic Valve The aortic valve is not well visualized. There is mild aortic valve sclerosis. There is no aortic valve stenosis. There is no aortic valve regurgitation. Pulmonic Valve The pulmonic valve is not well visualized. Mitral Valve The mitral valve has thickened leaflets. There is trace mitral valve regurgitation. The mitral valve annulus is mildly calcified. Tricuspid Valve The tricuspid valve leaflets are normal. There is trace tricuspid valve regurgitation. No pulmonary hypertension, estimated pulmonary arterial systolic pressure is 30 mmHg. Pericardium/Pleural The pericardium appears normal. There is trivial pericardial effusion. Inferior Vena Cava Normal inferior vena cava with >50% collapse upon inspiration consistent with normal right atrial pressure, 5 mmHg. Aorta The aortic root size at the sinus of Valsalva is normal. Left Ventricular Outflow Tract Name Value Normal LVOT 2D LVOT Diameter 2.04 cm LVOT Doppler LVOT Peak Gradient
--- NOTE | 2022-02-15 09:21 | PM.PNORT ---
Progress Note: A&P Assessment and Plan (1) Hematoma: Code(s): T14.8XXA - Other injury of unspecified body region, initial encounter Status: Acute Assessment and Plan: POD #1: I&D right shoulder wound s/p rotator cuff repair Continue sling. Monitor dressing. Drain in place. Serosanguineous drainage in chamber. Plan to pull drain prior to discharge. Pain control. Ice. Intraoperative cultures pending. Preliminary cultures reveal gram positive bacilli and rare gram positive cocci. Will plan for oral antibiotics with Augmentin per Dr. Mathews. Will follow cultures as an outpatient. Plan: Home pending cardiology clearance and antibiotic decision. (2) Abnormal ECG: Code(s): R94.31 - Abnormal electrocardiogram [ECG] [EKG] Status: Acute Assessment and Plan: Intraoperative bradycardia and abnormal EKG postoperatively. Patient follows with cardiology at baseline. Admitted to IMU. On telemetry. Cardiology consulted. (3) Rotator cuff tear, right: Qualifiers: Rotator cuff tear extent: complete Rotator cuff tear trauma status: nontraumatic Qualified Code(s): M75.121 - Complete rotator cuff tear or rupture of right shoulder, not specified as traumatic Code(s): M75.101 - Unspecified rotator cuff tear or rupture of right shoulder, not specified as traumatic Status: Acute Additional Plan Reviewed labs, culture results, assessment and plan with Dr. Mathews. All recommendations as above. No futher recommendations at this time. Subjective Subjective Date/Time Seen: 02/15/22 09:21 Post Op day: 1 Interval history: I&D right shoulder hematoma Patient doing well. Pain controlled. Very hopeful for discharge. Review of Systems Review of Systems: All systems reviewed & are unremarkable except as noted in HPI and below (HPI ) Exam Const: General: comfortable and no acute distress Resp: Effort & Inspection: normal respiratory effort GI: GI Palp: Yes Soft to palpation, No Tenderness to palpation present (GI) and No Guarding due to palpation present (GI) Skin: General skin exam: normal color Neuro: Speech: normal speech Motor exam (neuro): Abnormal motor strength present (RUE ) Extrem: Right upper extremity: shoulder/upper arm (dressing c/d/i, sling in place ) tenderness (diffuse, expected ) and axillary nerve sensory function normal, elbow/forearm normal to inspection, wrist normal to inspection and normal ROM; no tenderness and Extremity exam: right hand normal to inspection, normal capillary refill, neuromotor exam normal and vascular exam radial pulse present 2+ and normal capillary refill Objective Data Vital Signs Vital Signs: Vital Signs - 24 hr 02/14/22 14:30 02/14/22 17:15 02/14/22 17:30 Temperature 36.8 C 36.4 C Pulse Rate 62 97 86 Respiratory Rate 18 13 16 Blood Pressure 123/80 117/60 123/54 L Pulse Oximetry 98 100 100 Oxygen Delivery Simple Face Mask Simple Face Mask Oxygen Flow Rate 8 8 02/14/22 17:45 02/14/22 18:00 02/14/22 18:15 Temperature Pulse Rate 85 71 88 Respiratory Rate 14 10 L 14 Blood Pressure 133/95 H 133/83 146/95 H Pulse Oximetry 100 100 98 Oxygen Delivery Simple Face Mask Simple Face Mask Room Air Oxygen Flow Rate 8 8 02/14/22 18:30 02/14/22 18:45 02/14/22 19:52 Temperature 36.5 C Pulse Rate 85 81 69 Respiratory Rate 14 8 L 18 Blood Pressure 139/88 136/84 132/81 Pulse Oximetry 97 96 98 Oxygen Delivery Room Air Room Air Oxygen Flow Rate 02/14/22 20:48 02/14/22 20:04 02/14/22 22:00 Temperature Pulse Rate 79 64 Respiratory Rate Blood Pressure Pulse Oximetry 95 Oxygen Delivery Room Air Oxygen Flow Rate 02/14/22 23:43 02/15/22 00:00 02/15/22 00:00 Temperature 36.7 C Pulse Rate 64 58 L 64 Respiratory Rate 20 20 Blood Pressure 128/70 Pulse Oximetry 99 99 Oxygen Delivery Room Air Oxygen Flow Rate 02/15/22 02:00 02/15/22 04:00 02/15/22 04:00 Temperature P
--- NOTE | 2022-02-15 10:02 | PM.CNCAR ---
Assessment and Plan Assessment and plan (1) Abnormal ECG: Code(s): R94.31 - Abnormal electrocardiogram [ECG] [EKG] Status: Acute Assessment and Plan: EKG abnormalities have been present previously although it is changed from more recent ECGs but along the lines of those noted even more remotely. I am not convinced he has evidence of a clear lateral myocardial infarction particularly as he has been completely asymptomatic without anginal symptoms of any kind and has no history of CAD or [place]. He is not decompensated heart failure and has been hemodynamically stable. Renal function and electrolytes are stable. Patient does note he was transiently bradycardic during surgery without recurrent issues. 2D echo without corresponding wall motion abnormalities, preserved EF. Repeat 12 lead EKG not reveal aforementioned concern for lateral infarction that I personally did not appreciate. Stable for discharge home per Orthopedic surgery to follow with Dr. Douglass in the office as scheduled. Continue home cardiovascular medical therapy with Toprol XL 100 mg daily, amlodipine 5 mg daily, resume Xarelto when okay from orthopedic surgery (2) Paroxysmal atrial fibrillation: Code(s): I48.0 - Paroxysmal atrial fibrillation Status: Acute Assessment and Plan: Maintaining sinus rhythm. Very brief SVT on telemetry no issues at this time. (3) Hypertension: Qualifiers: Hypertension type: essential hypertension Qualified Code(s): I10 - Essential (primary) hypertension Code(s): I10 - Essential (primary) hypertension Status: Acute Assessment and Plan: Stable, no acute issues. Resume home medical therapy. (4) History of pulmonary embolism: Code(s): Z86.711 - Personal history of pulmonary embolism Status: Acute Assessment and Plan: Resume chronic anticoagulation with Xarelto when okay from orthopedic surgery (5) Chronic anticoagulation: Code(s): Z79.01 - terminal manager (current) use of anticoagulants Status: Acute Assessment and Plan: As above History of Present Illness History of Present Illness Consult date/time: Date of service: 02/15/22 10:02 Requesting physician: Lester Mathews MD Reason For Visit: right shoulder post op hematoma Narrative: Patient is a very pleasant 61-year-old male followed by Dr. Douglass as an outpatient with a history of paroxysmal atrial fibrillation maintained on systemic anticoagulation with a history of cardioversion history of DVT/PE underwent right rotator cuff repair early 01/31/2022 was no he developed hematoma for which he return to the OR yesterday for drainage. Twelve lead EKG was obtained which was interpreted as lateral myocardial infarction probably recent prompting consultation request for evaluation. Patient denies chest pain or shortness of breath at any time. Patient denies fevers, chills, near-syncope or syncope. No palpitations. No other recent trauma, claudication, lower extremity edema. Weight stable. In fact, patient states he feels better than he has in several years. No other concerns. No rashes, skin, hair or nail changes or heat or cold intolerance. His tolerating home medications without difficulty. Review of Systems Review of Systems: All systems reviewed & are unremarkable except as noted in HPI and below Constitutional: Constitutional: Reports as per HPI and Reports no additional constitutional complaints Comments: As per HPI. Eyes: Eyes: Reports as per HPI and Reports no additional eye complaints ENT: Reports system reviewed and no additional complaints, except as documented and Reports as per HPI Cardiovascular: Cardiovascular: Reports as per HPI and Reports no additional cardiovascular complaints Respiratory: Respiratory: Reports as per HPI and Reports no additional respiratory complaints Gastrointestinal: Gastrointestinal: Reports as per HPI and Reports no additional gastrointestina
--- NOTE | 2022-02-15 10:10 | ECG_ITS ---
Measurements Intervals [place] Rate: 57 P: 35 NE: 155 QRS: 16 QRSD: 117 T: -22 QT: 373 QTc: 365 Interpretive Statements SINUS BRADYCARDIA MODERATE INTRAVENTRICULAR CONDUCTION DELAY [110+ ms QRS DURATION] NONSPECIFIC T-WAVE ABNORMALITY BORDERLINE ECG COMPARED TO ECG 02/14/2022 17:38:18 HEART RATE HAS DECREASED OTHERWISE NO SIGNIFICANT CHANGE. LATERAL INFARCTION IS NOT APPRECIATED. Electronically Signed On 02-15-2022 17:51:32 CDT by Curt Jenkins M.D.
[2022-02-15] MEDS: PERFLUTREN LIPID MICROSPHERES 1.5 ML VIAL DILUTED TO 10 ML TOTAL VOLUME IV PUSH (10:20)
--- NOTE | 2022-02-15 10:20 | IVDEFINITY ---
Prior to administration of IV Definity the patient was educated on the risks and benefits of the imaging enhancing agent including potential adverse side effects. The patient verbalized understanding. Allergies were verified. No exclusion criteria were identified and at least one of the following inclusion criteria were met: 1) physician request, 2) patient technically difficult to image (per the [place] [employer]ocardi[employer] guidelines of two or more segments not discernable within the apical view), or 3) questionable left ventricular function. ?
[2022-02-15] MEDS: SENNA/DOCUSATE SODIUM TABLET 2 TAB PO (11:06)
== END 2022-02-15 16:07 | disposition home or self-care (01) ==
LOC: ANHSURGERY 18:06 → ANHIMU 19:32
PROVIDERS: Anesthesiology; PCP Family Medicine Adolescent Medicine; Visit Provider Orthopaedic Surgery
PROC: (CPT 10140; principal; 2022-02-14 15:30)
DX: L76.32 Postprocedural hematoma of skin and subcutaneous tissue following other procedure (principal); Y83.8 Other surgical procedures as the cause of abnormal reaction of the patient, or of later complication, without mention of misadventure at the time of the procedure; R94.31 Abnormal electrocardiogram [ECG] [EKG]; I45.10 Unspecified right bundle-branch block; I48.0 Paroxysmal atrial fibrillation; R00.1 Bradycardia, unspecified; I10 Essential (primary) hypertension; M51.36 Other intervertebral disc degeneration, lumbar region; D64.9 Anemia, unspecified; E03.9 Hypothyroidism, unspecified; E29.1 Testicular hypofunction; Z79.890 Hormone replacement therapy; Z86.711 Personal history of pulmonary embolism; Z79.01 Long term (current) use of anticoagulants
CPT/HCPCS: 10140; 36415; 80048; 84484; 85025; 86140; 87070; 87075; 87076; 87077; 87205; 93005; A4565; A9270; C8929; J0330; J0690; J1885; J2250; J2405; J2704; J3010; J3480; J7120; Q9957

== ENCOUNTER 2022-03-01 11:14 | Outpatient (CLI) | payer BC, SELFPAY ==
[2022-03-01 11:41] LABS: Basophils Percent Auto 0.6 % (0.2-1.2); Eosinophils Absolute Auto 0.1 K/mm3 (0-0.3); Eosinophils Percent Auto 1.6 % (0-4.4); Hematocrit 51.4 % (42.0-52.0); Hemoglobin 16.4 g/dL (14.0-18.0); Immature Granulocyte Absolute 0.01 K/mm3 (0.00-0.031); Immature Granulocyte Percent A 0.2 % (0-0.5); Lymphocytes Absolute Auto 1.06 K/mm3 (0.9-3.2); Lymphocytes Percent Auto 21.1 % (18.3-44.2); Mean Corpuscular HGB Conc 31.9 g/dl (32-36); Mean Corpuscular Hemoglobin 29.4 pg (26-34); Mean Corpuscular Volume 92.3 fl (80-100); Mean Platelet Volume 10.9 fl (7.4-10.4); Monocytes Absolute Auto 0.4 K/mm3 (0.1-0.6); Monocytes Percent Auto 7.2 % (2.6-8.5); Neutrophils Absolute Auto 3.5 K/mm3 (1.3-6.7); Neutrophils Percent Auto 69.3 % (45.5-73.1); Platelet Count Result 191 k/mm3 (150-375); Red Blood Count 5.57 M/mm3 (4.6-6.20); Red Cell Distribution Width 13.1 % (11.5-14.5)
[2022-03-01 12:00] LABS: CRP < 0.5 mg/dL (<1.0)
== END 2022-03-01 11:15 | disposition home or self-care (01) ==
PROVIDERS: PCP Family Medicine Adolescent Medicine; Visit Provider Nurse Practitioner Family
DX: T81.49XA Infection following a procedure, other surgical site, initial encounter (principal); T14.8XXA Other injury of unspecified body region, initial encounter
CPT/HCPCS: 36415; 85025; 86140

== ENCOUNTER 2024-07-01 14:26 | Outpatient (CLI) | payer BC, SELFPAY ==
--- NOTE | ~2024-07-01 | US_ITS ---
EXAMINATION: US retroperitoneal comp DATE: 07/01/2024 15:09 INDICATION: Malignant neoplasm of prostate. TECHNIQUE: Multiple ultrasound grayscale images of the kidneys were obtained. COMPARISON: None. FINDINGS: The right kidney measures 10.9 x 4.7 x 6.3 cm. The left kidney measures 11.9 x 5.9 x 5.9 cm. The kidn eys demonstrate normal parenchymal echogenicity. There is a 2.9 cm cyst in left kidney. There is no h ydronephrosis. The bladder is decompressed by a Augustine catheter. There is diffuse hepatic steatosis. T here is a small volume of ascites. IMPRESSION: 1. Normal kidney sizes. No hydronephrosis. 2. Small volume of ascites. 3. Diffuse hepatic steatosis. Reviewed, dictated and finalized at location A.
== END 2024-07-01 14:27 | disposition home or self-care (01) ==
LOC: ANHIMG 14:31
PROVIDERS: PCP Family Medicine Adolescent Medicine; Visit Provider Urology
DX: C61 Malignant neoplasm of prostate (principal); K76.0 Fatty (change of) liver, not elsewhere classified
CPT/HCPCS: 76770

== ENCOUNTER 2024-11-10 11:45 | Emergency (ER) | payer BC, SELFPAY ==
--- NOTE | 2024-11-10 11:50 | ECG_ITS ---
Test Date: 2024-11-10 12:12:26 Measurements Intervals [place] Rate: 54 P: 38 [place]: 155 QRS: -10 QRSD: 148 T: -9 QT: 392 QTc: 372 Interpretive Statements SINUS BRADYCARDIA RIGHT BUNDLE BRANCH BLOCK BASELINE ARTIFACT- I, II, III, AVR, AVL, AVF, V2, V4-V5 ABNORMAL ECG No previous ECG available for comparison Electronically Signed On 11-10-2024 12:17:28 LICENSED MENTAL HEALTH PROFESSIONAL by Tarik Mata D.O.
[2024-11-10 11:53] VITALS: BP 133/95; PULSE 67; RESP 16; TEMP 36.4; O2SAT 99
--- OUTSIDE RECORDS SUMMARY | 2024-11-10 13:49 | XMS_ITS | Encounter Summary ---
Author Organization [facility] Address [address] [place] [address] Phone Care Team Providers Care Director Call Name Role Phone Jimmy Patton MD Primary Care Provider [phone], Physician Primary Care Provider [phone] Jordan Sims MD Primary Care Prov ider Jimmy Patton MD Unavailable [phone] No, Physician Unavailable Encounter Details Date Type Department Care Team (Late st Contact Info) Description 12/23/2017 Orders Only [facility] ProviderTerrance MD [facility] [place] [address] Social History Tobacco Use Types Packs/Day Years Used Date Smoking Tobacco: Never Assessed Sex and Gender Information Value Date Recorded Sex Assigned at Not on file Legal Sex Male 5:40 PM CDT Gender Identity Not on file Sexual Orientation Not on file documented as of this encounter Plan of Treatment Not on file documented as of this encounter Procedures Procedure Name Priority Date/Time Associated Diagnosis Comments DISCHARGE LABORATORY CUMULATIVE REPORT 12/23/2017 12:00 AM CDT documented in this encounter Results * DISCHARGE LABORATORY CUMULATIVE REPORT (12/23/2017 12:00 AM CDT) Narrative 12/23/2017 12:00 AM CDT Ordered by an unspecified provider. us Historical Provider LAB BLOOD ORDERABLES Vidya l Result documented in this encounter Visit Diagnoses Not on filedocumented in this encounter Care Teams Director Call Relationship Specialty Start Date End Date Jimmy Patton MD PCP - General Internal Medicine 02/18/18 02/27/18 No, Physician PCP - General 02/28/18 03/26/18 Jordan Sims MD [address] [place] [address] PCP - General Family Medicine 03/27/18 Jimmy Patton MD Internal Medicine 02/28/18 03/26/18 No, Physician 03/27/18 documented as of this encounter
--- OUTSIDE RECORDS SUMMARY | 2024-11-10 13:49 | XMS_ITS | Encounter Summary ---
Author Organization [facility] Address [address] [place] [address] Phone Care Team Providers Care Digital Pre Press Operator Name Role Phone Jimmy Patton MD Primary Care Provider No, Physician Primary Care Provider [phone] Jordan Sims MD Primary Care Prov ider Jimmy Patton MD Unavailable [phone] No, Physician Unavailable Encounter Details Date Type Department Care Team (Late st Contact Info) Description 12/26/2017 Orders Only [facility] ProviderTerrance MD [facility] [place] [address] Social History Tobacco Use Types [...] Associated Diagnosis Comments DISCHARGE LABORATORY CUMULATIVE REPORT 12/26/2017 12:00 AM CDT documented in this encounter Results * DISCHARGE LABORATORY CUMULATIVE REPORT (12/26/2017 12:00 AM CDT) Narrative 12/26/2017 12:00 AM CDT Ordered by an unspecified provider. us Historical Provider LAB BLOOD ORDERABLES Vidya l Result documented in this encounter Visit Diagnoses Not on filedocumented in this encounter Care Teams Digital Pre Press Operator Relationship Specialty Start Date End Date Jimmy Patton MD PCP - General Internal Medicine 02/18/18 02/27/18 No, Physician PCP - General 02/28/18 03/26/18 Jordan Sims MD [address] [place] [address] PCP - General Family Medicine 03/27/18 Jimmy Patton MD Internal Medicine 02/28/18 03/26/18 No, Physician 03/27/18 documented as of this encounter
--- OUTSIDE RECORDS SUMMARY | 2024-11-10 13:49 | XMS_ITS | Encounter Summary ---
Author Organization [facility] Address [address] [place] [address] Phone Care Team Providers Care Application Infrastructure Engineer Name Role Phone Jimmy Patton MD Primary Care Provider [phone] No, Physician Primary Care Provider [phone] Jordan Sims MD Primary Care Prov ider Jimmy Patton MD Unavailable [phone] No, Physician Unavailable Encounter Details Date Type Department Care Team (Late st Contact Info) Description 12/12/2017 Orders Only [facility] ProviderTerrance MD [facility] [place] [address] Social History Tobacco Use Types [...] Associated Diagnosis Comments DISCHARGE LABORATORY CUMULATIVE REPORT 12/12/2017 12:00 AM CDT documented in this encounter Results * DISCHARGE LABORATORY CUMULATIVE REPORT (12/12/2017 12:00 AM CDT) Narrative 12/12/2017 12:00 AM CDT Ordered by an unspecified provider. us Historical Provider LAB BLOOD ORDERABLES Vidya l Result documented in this encounter Visit Diagnoses Not on filedocumented in this encounter Care Teams Application Infrastructure Engineer Relationship Specialty Start Date End Date Jimmy Patton MD PCP - General Internal Medicine 02/18/18 02/27/18 No, Physician PCP - General 02/28/18 03/26/18 Jordan Sims MD [address] [place] [address] PCP - General Family Medicine 03/27/18 Jimmy Patton MD Internal Medicine 02/28/18 03/26/18 No, Physician 03/27/18 documented as of this encounter
--- OUTSIDE RECORDS SUMMARY | 2024-11-10 13:49 | XMS_ITS | Encounter Summary ---
Author Organization [facility] Address [address] [place] [address] Phone Care Team Providers Care Supervisor Special Education Name Role Phone Jimmy Patton MD Primary Care Provider No, Physician Primary Care Provider [phone] Jordan Sims MD Primary Care Prov ider Jimmy Patton MD Unavailable [phone] No, Physician Unavailable Encounter Details Date Type Department Care Team (Late st Contact Info) Description 01/02/2018 Orders Only [facility] ProviderTerrance MD [facility] [place] [address] Social History Tobacco Use Types [...] Associated Diagnosis Comments DISCHARGE LABORATORY CUMULATIVE REPORT 01/02/2018 12:00 AM CDT documented in this encounter Results * DISCHARGE LABORATORY CUMULATIVE REPORT (01/02/2018 12:00 AM CDT) Narrative 01/02/2018 12:00 AM CDT Ordered by an unspecified provider. us Historical Provider LAB BLOOD ORDERABLES Vidya l Result documented in this encounter Visit Diagnoses Not on filedocumented in this encounter Care Teams Supervisor Special Education Relationship Specialty Start Date End Date Jimmy Patton MD PCP - General Internal Medicine 02/18/18 02/27/18 No, Physician PCP - General 02/28/18 03/26/18 Jordan Sims MD [address] [place] [address] PCP - General Family Medicine 03/27/18 Jimmy Patton MD Internal Medicine 02/28/18 03/26/18 No, Physician 03/27/18 documented as of this encounter
--- OUTSIDE RECORDS SUMMARY | 2024-11-10 13:49 | XMS_ITS | Encounter Summary ---
Author Organization [facility] Address [address] [place] [address] Phone Care Team Providers Care Small Business Director Name Role Phone Jimmy Patton MD Primary Care Provider No, Physician Primary Care Provider [phone] Jordan Sims MD Primary Care Prov ider Jimmy Patton MD Unavailable [phone] No, Physician Unavailable Encounter Details Date Type Department Care Team (Late st Contact Info) Description 12/16/2017 Orders Only [facility] ProviderTerrance MD [facility] [place] [address] Social History Tobacco Use Types [...] Associated Diagnosis Comments DISCHARGE LABORATORY CUMULATIVE REPORT 12/16/2017 12:00 AM CDT documented in this encounter Results * DISCHARGE LABORATORY CUMULATIVE REPORT (12/16/2017 12:00 AM CDT) Narrative 12/16/2017 12:00 AM CDT Ordered by an unspecified provider. us Historical Provider LAB BLOOD ORDERABLES Vidya l Result documented in this encounter Visit Diagnoses Not on filedocumented in this encounter Care Teams Small Business Director Relationship Specialty Start Date End Date Jimmy Patton MD PCP - General Internal Medicine 02/18/18 02/27/18 No, Physician PCP - General 02/28/18 03/26/18 Jordan Sims MD [address] [place] [address] PCP - General Family Medicine 03/27/18 Jimmy Patton MD Internal Medicine 02/28/18 03/26/18 No, Physician 03/27/18 documented as of this encounter
--- OUTSIDE RECORDS SUMMARY | 2024-11-10 13:49 | XMS_ITS | Clinical Summary ---
Author Organization [facility] Address [address] [place] [address] Care Team Providers Care Building Maintenance Mechanic Name Role Phone Jordan Sims MD Primary Care Provider [phone] Collin Douglass MD Unavailable [phone] Allergies No known active allergies Medications rivaroxaban (XARELTO) 20 MG Tab tablet Take 1 tablet (20 mg total) by mouth daily with supper. Take with food Active levothyroxine (SYNTHROID) 125 MCG tablet Take 1 tablet (125 mcg total) by mouth daily. 4 Active amLODIPine (NORVASC) 5 MG tablet Take 1 tablet (5 mg total) by mouth daily. Active AZELASTINE 137 MCG/SPRAY nasal spray 1 spray by Nasal route 2 (two) times daily. 4 Active zolpidem (AMBIEN) 10 MG tablet Take 0.5 tablets (5 mg total) by mouth nightly as needed for Sleep. 4 Active vardenafil (LEVITRA) 20 MG tablet Take 0.5 tablets (10 mg total) by mouth daily as needed for Erectile Dysfunction. 4 Active testosterone cypionate (DEPO TESTOSTERONE) 200 MG/ML injection Inject 1 mL (200 mg total) into the muscle once a week. ON HOLD 4 Active olmesartan (BENICAR) 40 MG tablet Take 1 tablet (40 mg total) by mouth daily. 4 Active metoprolol succinate ER (TOPROL-XL) 100 MG 24 hr tablet Take 0.5 tablets (50 mg total) by mouth daily. Active modafinil (PROVIGIL) 200 MG tablet Take 0.5 tablets (100 mg total) by mouth daily. Afternoon 4 Active nitrofurantoin, macrocrystal-mo nohydrate, (MACROBID) 100 MG capsule Take 1 capsule (100 mg total) by mouth 2 (two) times daily. 4 Active Active Problems Problem Noted Date Diagnosed Date Prostate cancer ([facility]/HCC [facility]) 06/18/2024 Social History Tobacco Use Types Packs/Day Years Used Date Smoking Tobacco: Never Smokeless Tobacco: Never Tobacco Cessation:Counseling Given: Not Answered Alcohol Use Standard Drinks/Week Comments Not Currently 0 (1 standard drink = 0.6 oz pur e alcohol) [facility] Utilities Answer Date Recorded In the past 12 months has e [employer], gas, oil, or water [employer] threatened to shut off services in your home? No 06/18/2024 Humiliation, Afraid, Rape, and Kick questionnair e Answer Date Recorded Within the last year, have y ou been afraid of your partner or ex-partner? No 06/18/2024 Within the last year, have y ou been humiliated or emotionally abused in other ways by your partner or ex-partner? No Within the last year, have y ou been kicked, hit, slapped, or otherwise physically hurt by your partner or ex-partner? No 06/18/2024 Within the last year, have y ou been raped or forced to have any kind of sexual activity by your partner or ex-partner? No 06/18/2024 Overall Financial Resource Strain (CARDIA) Answe r Date Recorded How hard is it for you to pa y for the very basics like food, housing, medical care, and heating? Not hard at all 06/18/2024 Hunger Vital Sign Answer Date Recorded Within the past 12 months, y ou worried that your food would run out before you got the money to buy more. Never true 06/18/20 24 Within the past 12 months, t he food you bought just didn't last and you didn't have money to get more. Never true 06/18/2024 PRAPARE - Transportation Answer Date Re corded In the past 12 months, has l ack of transportation kept you from medical appointments or from getting medications? No 11/2023 In the past 12 months, has l ack of transportation kept you from meetings, work, or from getting things needed for daily living? No 06/18/2024 Housing Stability Vital Sign Answer Rio e Recorded In the last 12 months, was t here a time when you were not able to pay the mortgage or rent on time? No 06/18/2024 In the past 12 months, how m any times have you moved where you were living? 0 06/18/2024 At any time in the past 12 m [facility], were you homeless or living in a retirement (including now)? No 06/18/2024 Sex and Gender Information Value Date Recorded Sex Assigned at Not on file Legal Sex Male 9:50 AM CDT Gender Identity Not on file Sexual Orientation Not on file Last Filed Vital Signs Vital Sign Reading Time Taken Comments Blood Pressure 108/81 06/21/2024 8:50 AM CDT Pulse 77 06/21/2024 8:50 AM CDT Temperature 36.5 C (97.7 F) 06/21/2024 8:50 AM CDT Respiratory Rate 18 06/21/2024 8:50 AM CDT Oxygen Saturation 98% 06/21/2024 8:50 AM CDT Inhaled Oxygen Concentration - - Weight 107.3 kg (236 lb 8.9 oz) 06/18/2024 7:00 AM CDT Height 175.3 cm (5' 9 ) 06/18/2024 7:00 AM CDT Body Mass Index 34.93 06/18/2024 7:00 AM CDT Plan of Treatment Health Maintenance Due Date Last Done Comments Colorectal Cancer Screening Colonoscopy (10 Years) 1959 Annual Physical 11/14/1962 Hepatitis C 11/14/1977 DTaP, Tdap and Td Vaccines ( 1 - Tdap) 11/14/1978 Zoster Vaccines (1 of 2) 11/14/2009 COVID-19 Vaccine (2023-2 5 season) 2024 Influenza Adult (#1) 2024 RSV Immunization or 60+ Years (1 - 1-dose 75+ series) 11/14/2034 Meningococcal B Vaccine Aged Out No l onger eligible based on patient's age to complete this topic Meningococcal Vaccine Aged Out No makenzie lashaun eligible based on patient's age to complete this topic Pneumococcal Vaccine: Pediat rics (0 to 5 Years) and At-Risk Patients (6 to 64 Years) Aged Out No longer eligible b ased on patient's age to complete this topic RSV Immunizations Under 20 Months Aged Out No longer eligible based on patient's age to complete this topic Goals Goal Patient Goal Type Associated Problems Recent Progress Patient-Stated? Author Family - family caregiver with be involved in care transitions and discharge planning Lifestyle No Yaw Schneider, RN Insurance [facility] Advance Directives * Full Code (Latest Code Status on File) Date Activated Date Inactivated Comments 06/18/2024 5:03 PM 06/21/2024 6:51 PM Care Teams Building Maintenance Mechanic Relationship Specialty Start Date End Date Jordan Sims MD [address] [facility] [address] [place] [address] PCP - General FAMILY PRACTICE 06/10/24 Collin Douglass MD [address] [facility] [address] [place] [id number] CARDIOVASCULAR DISEASE 06/15/24
--- OUTSIDE RECORDS SUMMARY | 2024-11-10 13:49 | XMS_ITS | Clinical Summary ---
Author Organization [facility] [address] Address [address] [place] [address] Care Team Providers Care Communications Department Chair Name Role Phone Jordan Sims MD Primary Care Prov ider No, Physician Unavailable Allergies No known active allergies Medications levothyroxine (SYNTHROID, LEVOTHROID) 125 mcg tablet Take 1 tablet (125 mcg total) by mouth daily 2 018 Active valsartan (DIOVAN) 320 mg tablet Take 1 tablet (320 mg total) by mouth daily Active UNABLE TO FIND Testosterone 200 cream. Once daily. Active anastrozole (ARIMIDEX) 1 mg suspension Take 10 mL (1 mg total) by mouth once a week Active hydroCHLOROthiazid e (MICROZIDE) 12.5 mg capsuleIndications :Essential hypertension Take 1 capsule by mouth once daily in the morning 90 capsule 2 021 Active atorvastatin (LIPITOR) 20 mg tabletIndications: Dyslipidemia Take 1 tablet (20 mg total) by mouth daily 90 tablet 3 022 Active Xarelto 20 mg tabletIndications: Chronic anticoagulation Take 1 tablet by mouth once daily 90 tablet 1 024 Active metoprolol XL (TOPROL-XL) 100 mg 24 hr tabletIndications: Paroxysmal atrial fibrillation (CMS/HCC) (HCC) Take 1/2 (one-half) tablet by mouth once daily 45 tablet 024 Active Gemtesa 75 mg tablet Take 75 mg by mouth daily 025 Active oxyBUTYnin XL (DITROPAN-XL) 10 mg 24 hr tablet Take 1 tablet (10 mg total) by mouth daily 025 Active sildenafiL (VIAGRA) 100 mg tablet Take 1 tablet (100 mg total) by mouth as needed 025 Active amLODIPine (NORVASC) 5 mg tablet Take 1 tablet by mouth once daily 90 tablet 3 025 Active sildenafil, antihypertensive, (REVATIO) 20 mg tabletIndications: Pulmonary Arterial Hypertension 1 018 2024 Discontinued(A lternate therapy) amLODIPine (NORVASC) 5 mg tablet Take 1 tablet (5 mg total) by mouth daily 90 tablet 2 024 2024 Discontinued Active Problems Problem Noted Date Diagnosed Date Dyslipidemia 07/19/2022 Tiredness 06/07/2022 Abnormal ECG 06/07/2022 RBBB 06/07/2022 CON (obstructive sleep apnea) 07/06/2021 Chronic anticoagulation 07/08/2018 Atrial fibrillation (CMS/HCC) 03/27/2018 Bilateral pulmonary embolism (CMS/HCC) 8 History of total hip arthroplasty 03/27/2018 Hypothyroidism 03/27/2018 Resolved Problems Problem Noted Date Diagnosed Date Resolved Date Essential hypertension 03/27/201806/07 Encounters Date Type Department Care Team Description 10/13/2024 2:00 PM CLINIC NURSE Office Visit [facility] Cardiology [address] [place] [address] Collin Douglass MD CON (obstructive sleep apnea) (Primary Dx); Hypothyroidism, unspecified type; Paroxysmal atrial fibrillation (CMS/HCC) (HCC); RBBB; Dyslipidemia from Last 3 Months Surgical History Surgery Date Site/Laterality Comments HIP SURGERY KNEE SURGERY ROTATOR CUFF REPAIR 09/16/2021 - 09/15/2022 Right Medical History Medical History Date Comments Hypertension Family History Medical History Relation Name Comments Diabetes Father Diabetes Mother Heart disease Mother Relation Name Status Comments Father (Age 36) Mother Alive Sister Alive Social History Tobacco Use Types Packs/Day Years Used Date Smoking Tobacco: Never Smokeless Tobacco: Never Tobacco Cessation:Counseling Given: Not Answered Alcohol Use Standard Drinks/Week Comments No 0 (1 standard drink = 0.6 oz pur e alcohol) Sex and Gender Information Value Date Recorded Sex Assigned at Not on file Legal Sex Male 5:40 PM CDT Gender Identity Not on file Sexual Orientation Not on file Obstetrics History Last Filed Vital Signs Vital Sign Reading Time Taken Comments Blood Pressure 114/68 10/13/2024 2:02 PM CLINIC NURSE Pulse 54 10/13/2024 2:02 PM CLINIC NURSE Temperature - - Respiratory Rate - - Oxygen Saturation 94% 10/13/2024 2:02 PM CLINIC NURSE Inhaled Oxygen Concentration - - Weight 106.1 kg (234 lb) 10/13/2024 2:02 PM CLINIC NURSE Height 175.3 cm (5' 9 ) 10/13/2024 2:02 PM CLINIC NURSE Body Mass Index 34.56 10/13/2024 2:02 PM CLINIC NURSE Plan of Treatment Health Maintenance Due Date Last Done Comments Colon Cancer Screening-Colonoscopy 1960 Depression Screening 1960 Hepatitis C Screening 1960 Prostate Cancer Screening-PSA 1959 DTaP/Tdap/Td Vaccine (1 - Tdap) 11/14/1970 Hepatitis B Screening 11/14/1977 Regular Well Visit/Exam 18-64 11/14/1977 Pneumococcal vaccine <65 (1 of 2 - PCV) 11/14/1978 Zoster Vaccine (1 of 2) 11/14/1978 Influenza Vaccine (#1) 2024 Procedures Procedure Name Priority Date/Time Associated Diagnosis Comments POCT LIPID PANEL Routine 10/13/2024 2:02 PM CLINIC NURSE Dyslipidemia from Last 3 Months Results * POCT lipid panel (10/13/2024 2:02 PM CLINIC NURSE) Cholesterol, POC 196 mg/dL HDL, POC 19 mg/dL Triglycerides, POC 199 mg/dL LDL Cholesterol POC 137 mg/dL Chol/HDL Ratio, POC 7.4 Non-HDL Cholesterol, POC 177 mg/dL Cholesterol Total, POC 196 mg/dL Capillary blood 10/13/2024 2 :02 PM CLINIC NURSE us Collin Douglass MD POINT OF CARE TEST ORDERA BLES Final Result from Last 3 Months Insurance [employer] [place] Care Teams Communications Department Chair Relationship Specialty Start Date End Date Jordan Sims MD [address] [place] [address] PCP - General Family Medicine 03/27/18 No, Physician 03/27/18
--- OUTSIDE RECORDS SUMMARY | 2024-11-10 13:49 | XMS_ITS | Clinical Summary ---
Author Organization [facility] Address [address] [place] [address] Care Team Providers Care Director Staffing Name Role Phone Jordan Sims MD Primary Care Provider [phone] Allergies No known active allergies Medications valsartan (DIOVAN) 320 mg tablet Take 320 mg by mouth. Active XARELTO 20 mg Tablet 11/09/2019 Active metoprolol succinate (TOPROL XL) 200 mg Extended Release 24 hour tablet 11/03/2019 Active levothyroxine 125 mcg tablet 11/06/2019 Acti ve hydroCHLOROthiaz silvia (MICROZIDE) 12.5 mg capsule 11/08/2019 Act marv amLODIPine (NORVASC) 5 mg tablet 11/08/2019 Active sildenafil, pulm.hypertensio n, (REVATIO) 20 mg Tablet 05/17/2018 Active Active Problems Problem Noted Date Diagnosed Date Erythrocytosis 11/11/2019 Chronic pulmonary embolism without acute cor pul monale 11/11/2019 Persistent atrial fibrillation 11/11/2019 Family History Medical History Relation Name Comments Diabetes Father Heart Disease Mother Relation Name Status Comments Daughter Alive Father Mother Alive Sister Alive Son Alive Social History Tobacco Use Types Packs/Day Years Used Date Smoking Tobacco: Never Smokeless Tobacco: Never Alcohol Use Standard Drinks/Week Comments Not Currently 0 (1 standard drink = 0.6 oz pur e alcohol) Sex and Gender Information Value Date Recorded Sex Assigned at Not on file Legal Sex Male 3:15 PM NOZZLEMAN Gender Identity Not on file Sexual Orientation Not on file Last Filed Vital Signs Vital Sign Reading Time Taken Comments Blood Pressure 122/80 03/03/2020 8:55 AM CDT 1st BP take 153/102 HR 56 Pulse 59 03/03/2020 8:55 AM CDT Temperature 36.7 C (98 F) 03/03/2020 8:55 AM CDT Respiratory Rate - - Oxygen Saturation 96% 03/03/2020 8:5 5 AM CDT Inhaled Oxygen Concentration - - Weight 110.1 kg (242 lb 12.8 oz) 03/03/2020 8:55 AM CDT Height 175.3 cm (5' 9 ) 03/03/2020 8:55 AM CDT Body Mass Index 35.86 03/03/2020 8:55 AM CDT Plan of Treatment Health Maintenance Due Date Last Done Comments DTAP/TDAP/TD VACCINES (1 - Tdap) 11/14/1978 COLORECTAL SCREENING 11/14/2004 Colorectal Cancer Screening 11/14/2004 FIT-DNA Q 3 years 11/14/2004 FIT/FOBT Q 1 year 11/14/2004 Flex Sig/CT Colonography Q 5 years 11/14/2004 ZOSTER VACCINE (1 of 2) 11/14/2009 INFLUENZA VACCINE (#1) 2024 RSV VACCINE (60+ or ) (1 - 1-dose 75+ series) 11/14/2034 Care Teams Director Staffing Relationship Specialty Start Date End Date Jordan Sims MD [address] [place] [id number] PCP - General Family Practice 10/05/19
--- OUTSIDE RECORDS SUMMARY | 2024-11-10 13:49 | XMS_ITS | Encounter Summary ---
Author Organization [facility] Address [address] [place] [address] Phone Care Team Providers Care Pulling Machine Operator Name Role Phone Jimmy Patton MD Primary Care Provider [phone] No, Physician Primary Care Provider [phone] Jordan Sims MD Primary Care Prov ider Jimmy Patton MD Unavailable [phone] No, Physician Unavailable Encounter Details Date Type Department Care Team (Late st Contact Info) Description 12/19/2017 Orders Only [facility] ProviderTerrance MD [facility] [place] [address] Social History Tobacco Use Types [...] Associated Diagnosis Comments DISCHARGE LABORATORY CUMULATIVE REPORT 12/19/2017 12:00 AM CDT documented in this encounter Results * DISCHARGE LABORATORY CUMULATIVE REPORT (12/19/2017 12:00 AM CDT) Narrative 12/19/2017 12:00 AM CDT Ordered by an unspecified provider. us Historical Provider LAB BLOOD ORDERABLES Vidya l Result documented in this encounter Visit Diagnoses Not on filedocumented in this encounter Care Teams Pulling Machine Operator Relationship Specialty Start Date End Date Jimmy Patton MD PCP - General Internal Medicine 02/18/18 02/27/18 No, Physician PCP - General 02/28/18 03/26/18 Jordan Sims MD [address] [place] [address] PCP - General Family Medicine 03/27/18 Jimmy Patton MD Internal Medicine 02/28/18 03/26/18 No, Physician 03/27/18 documented as of this encounter
--- OUTSIDE RECORDS SUMMARY | 2024-11-10 13:49 | XMS_ITS | Encounter Summary ---
Author Organization [facility] Address [address] [place] [address] Phone Care Team Providers Care Ground Water Contractor Name Role Phone Jimmy Patton MD Primary Care Provider No, Physician Primary Care Provider [phone] Jordan Sims MD Primary Care Prov ider Jimmy Patton MD Unavailable [phone] No, Physician Unavailable Encounter Details Date Type Department Care Team (Late st Contact Info) Description 01/06/2018 Orders Only [facility] ProviderTerrance MD [place] [address] Social History Tobacco Use Types [...] Associated Diagnosis Comments DISCHARGE LABORATORY CUMULATIVE REPORT 01/06/2018 12:00 AM CDT documented in this encounter Results * DISCHARGE LABORATORY CUMULATIVE REPORT (01/06/2018 12:00 AM CDT) Narrative 01/06/2018 12:00 AM CDT Ordered by an unspecified provider. us Historical Provider LAB BLOOD ORDERABLES Vidya l Result documented in this encounter Visit Diagnoses Not on filedocumented in this encounter Care Teams Ground Water Contractor Relationship Specialty Start Date End Date Jimmy Patton MD PCP - General Internal Medicine 02/18/18 02/27/18 No, Physician PCP - General 02/28/18 03/26/18 Jordan Sims MD [address] [place] [address] PCP - General Family Medicine 03/27/18 Jimmy Patton MD Internal Medicine 02/28/18 03/26/18 No, Physician 03/27/18 documented as of this encounter
--- OUTSIDE RECORDS SUMMARY | 2024-11-10 13:49 | XMS_ITS | Clinical Summary ---
Author Organization [facility] Address [address] [place] [address] Phone Care Team Providers Care Rug Cleaner Hand Name Role Phone Jordan Manning MD Primary Care Provider [phone] Allergies No known active allergies Medications Medication Sig Dispensed Refills Start Date End Date Status amLODIPine (NORVASC) 5 MG tablet 07/01/2021 Active Xarelto 20 MG tablet 06/21/2021 Acti ve metoprolol succinate XL (TOPROL-XL) 100 MG 24 hr tablet 06/21/2021 Active levothyroxine (SYNTHROID) 125 MCG tablet 06/21/2021 Active zolpidem (AMBIEN) 10 MG tablet 07/03/2021 Active hydroCHLOROthiazide (MICROZIDE) 12.5 MG capsule 06/21/2021 Active tadalafil (CIALIS) 20 MG tablet 07/01/2021 Active Testosterone 20 % cream Active clobetasol (TEMOVATE) 0.05 % cream APPLY CREAM TOPICALLY ONCE DAILY 11/14/2021 Active HYDROcodone-acetamino phen (NORCO) 5-325 MG per tablet Take 1 tablet by mouth 3 (three) times a day if needed for pain 12/29/2021 Active modafinil (PROVIGIL) 200 MG tablet TAKE 1/2 TO 1 (ONE-HALF TO ONE) TABLET BY MOUTH ONCE DAILY IN THE MORNING 12/26/2021 Active montelukast (SINGULAIR) 10 MG tablet Take 10 mg by mouth 1 (one) time each day prn 11/28/2021 Active olmesartan (BENICAR) 40 MG tablet Take 40 mg by mouth 1 (one) time each day 12/16/2021 Active tamsulosin (FLOMAX) 0.4 MG 24 hr capsule Take 0.4 mg by mouth 2 (two) times a day 01/01/2022 Active Active Problems Problem Noted Date Diagnosed Date Nonspecific abnormal results of function study o f kidney 07/12/2021 Obstructive sleep apnea syndrome 07/06/2021 Erythrocytosis 11/11/2019 Essential hypertension 03/27/2018 Persistent atrial fibrillation 03/27/2018 Pulmonary embolism 03/27/2018 Family History Medical History Relation Comments Diabetes Father Kidney disease Father Relation Status Comments Father Social History Tobacco Use Types Packs/Day Years Used Date Smoking Tobacco: Never Smokeless Tobacco: Never Alcohol Use Standard Drinks/Week Comments Not Currently 0 (1 standard drink = 0.6 oz pur e alcohol) Sex and Gender Information Value Date Recorded Sex Assigned at Not on file Gender Identity Not on file Sexual Orientation Not on file Last Filed Vital Signs Vital Sign Reading Time Taken Comments Blood Pressure 122/70 01/04/2022 8:40 AM CDT Pulse 72 01/04/2022 8:40 AM CDT Temperature 36.2 C (97.2 F) 01/04/2022 8:40 AM CDT Respiratory Rate - - Oxygen Saturation - - Inhaled Oxygen Concentration - - Weight 105 kg (231 lb) 01/04/2022 8:40 AM CDT Height 177.8 cm (5' 10 ) 01/04/2022 8:40 AM CDT Body Mass Index 33.15 01/04/2022 8:40 AM CDT Plan of Treatment Health Maintenance Due Date Last Done Comments Influenza Vaccine (#1) 2024 Care Teams Rug Cleaner Hand Relationship Specialty Start Date End Date Jordan Manning MD [address] [place] [phone] PCP - General Family Medicine 06/08/21
--- OUTSIDE RECORDS SUMMARY | 2024-11-10 13:49 | XMS_ITS | Referral Summary ---
Author Organization [facility] [place] [place] [address] [facility] [address] Address [address] [place] [address] Care Team Providers Care Stroke Program Coordinator Name Role Phone Jordan Sims MD Primary Care Prov ider No, Physician Unavailable Encounters Date Type Department Care Team Description 10/13/2024 2:00 PM ENVIRONMENTAL RESTORATION PLANNER Office Visit [facility] Cardiology [address] [place] [address] Collin Douglass MD CON (obstructive sleep apnea) (Primary Dx); Hypothyroidism, unspecified type; Paroxysmal atrial fibrillation (CMS/HCC) (HCC); RBBB; Dyslipidemia from Last 3 Months Allergies No known active allergies Medications levothyroxine [...] 24 hr tabletIndications: Paroxysmal atrial fibrillation (CMS/HCC) ([facility]) Take 1/2 (one-half) tablet by mouth once [...] Diagnosed Date Resolved Date Essential hypertension 03/27/201806/07 Social History Tobacco Use Types Packs/Day Years [...] Comments Blood Pressure 114/68 10/13/2024 2:02 PM ENVIRONMENTAL RESTORATION PLANNER Pulse 54 10/13/2024 2:02 PM ENVIRONMENTAL RESTORATION PLANNER Temperature - - Respiratory Rate - - Oxygen Saturation 94% 10/13/2024 2:02 PM ENVIRONMENTAL RESTORATION PLANNER Inhaled Oxygen Concentration - - Weight 106.1 kg (234 lb) 10/13/2024 2:02 PM ENVIRONMENTAL RESTORATION PLANNER Height 175.3 cm (5' 9 ) 10/13/2024 2:02 PM ENVIRONMENTAL RESTORATION PLANNER Body Mass Index 34.56 10/13/2024 2:02 PM ENVIRONMENTAL RESTORATION PLANNER Plan of Treatment Not on file Procedures Procedure Name Priority Date/Time Associated Diagnosis Comments POCT LIPID PANEL Routine 10/13/2024 2:02 PM ENVIRONMENTAL RESTORATION PLANNER Dyslipidemia from Last 3 Months Results * POCT lipid panel (10/13/2024 2:02 PM ENVIRONMENTAL RESTORATION PLANNER) Cholesterol, POC 196 mg/dL HDL, POC 19 mg/dL Triglycerides, POC 199 mg/dL LDL Cholesterol POC 137 mg/dL Chol/HDL Ratio, POC 7.4 Non-HDL Cholesterol, POC 177 mg/dL Cholesterol Total, POC 196 mg/dL Capillary blood 10/13/2024 2 :02 PM ENVIRONMENTAL RESTORATION PLANNER Collin Douglass MD POINT OF CARE TEST ORDERA BLES Final Result from Last 3 Months Insurance COUNT INCLUDES THE [facility] [employer] [place] [employer] [place] Care Teams Stroke Program Coordinator Relationship Specialty Start Date End Date Jordan Sims MD [address] [place] [address] PCP - General Family Medicine 03/27/18 No, Physician 03/27/18
--- OUTSIDE RECORDS SUMMARY | 2024-11-10 13:49 | XMS_ITS | Encounter Summary ---
Author Organization [facility] Address [address] [place] [address] Phone Care Team Providers Care Physician Practice Consultant Name Role Phone Jimmy Patton MD Primary Care Provider [phone] No, Physician Primary Care Provider [phone] Jordan Sims MD Primary Care Prov ider Jimmy Patton MD Unavailable [phone] No, Physician Unavailable Encounter Details Date Type Department Care Team (Late st Contact Info) Description 12/30/2017 Orders Only [facility] ProviderTerrance MD [facility] [place] [address] Social History Tobacco Use Types [...] Associated Diagnosis Comments DISCHARGE LABORATORY CUMULATIVE REPORT 12/30/2017 12:00 AM CDT documented in this encounter Results * DISCHARGE LABORATORY CUMULATIVE REPORT (12/30/2017 12:00 AM CDT) Narrative 12/30/2017 12:00 AM CDT Ordered by an unspecified provider. us Historical Provider LAB BLOOD ORDERABLES Vidya l Result documented in this encounter Visit Diagnoses Not on filedocumented in this encounter Care Teams Physician Practice Consultant Relationship Specialty Start Date End Date Jimmy Patton MD PCP - General Internal Medicine 02/18/18 02/27/18 No, Physician PCP - General 02/28/18 03/26/18 Jordan Sims MD [address] [place] [address] PCP - General Family Medicine 03/27/18 Jimmy Patton MD Internal Medicine 02/28/18 03/26/18 No, Physician 03/27/18 documented as of this encounter
[2024-11-10 14:10] VITALS: BP 144/97; PULSE 52; RESP 20; TEMP 36.4; O2SAT 98
--- NOTE | 2024-11-10 14:10 | PC.NURSE ---
Pt states he feels his HR in controlled, is not in any pain or having any sx and is going to f/u with his pot builder. Pt leaves ED in NAD. States will return if sx return.
--- OUTSIDE RECORDS SUMMARY | 2024-11-10 16:37 | XMS_ITS | Encounter Summary ---
Author Organization [facility] Address [address] [place] [address] Phone Care Team Providers Care Poultry Picking Machine Tender Name Role Phone Jimmy Patton MD Primary Care Provider [phone] No, Physician Primary Care Provider [phone] Jordan Sims MD Primary Care Prov ider Jimmy Patton MD Unavailable [phone] No, Physician Unavailable Encounter Details Date Type Department Care Team (Late st Contact Info) Description 01/02/2018 Orders Only [facility] ProviderTerrance MD Replaced by [facility] [place] [address] Social History Tobacco Use Types [...] on filedocumented in this encounter Care Teams Poultry Picking Machine Tender Relationship Specialty Start Date End Date Jimmy Patton MD PCP - General Internal Medicine 02/18/18 02/27/18 No, Physician PCP - General 02/28/18 03/26/18 Jordan Sims MD [address] [place] [address] PCP - General Family Medicine 03/27/18 Jimmy Patton MD Internal Medicine 02/28/18 03/26/18 No, Physician 03/27/18 documented as of this encounter
--- OUTSIDE RECORDS SUMMARY | 2024-11-10 16:37 | XMS_ITS | Encounter Summary ---
Author Organization [facility] Address [address] [place] [address] Phone Care Team Providers Care Customer Service Supervisor Name Role Phone Jimmy Patton MD Primary Care Provider No, Physician Primary Care Provider [phone] Jordan Sims MD Primary Care Prov ider Jimmy Patton MD Unavailable [phone] No, Physician Unavailable Encounter Details Date Type Department Care Team (Late st Contact Info) Description 01/06/[address] [facility] ProviderTerrance MD [facility] [place] [address] Social History Tobacco Use Types [...] on filedocumented in this encounter Care Teams Customer Service Supervisor Relationship Specialty Start Date End Date Jimmy Patton MD PCP - General Internal Medicine 02/18/18 02/27/18 No, Physician PCP - General 02/28/18 03/26/18 Jordan Sims MD [address] [place] [address] PCP - General Family Medicine 03/27/18 Jimmy Patton MD Internal Medicine 02/28/18 03/26/18 No, Physician 03/27/18 documented as of this encounter
--- OUTSIDE RECORDS SUMMARY | 2024-11-10 16:37 | XMS_ITS | Clinical Summary ---
Author Organization [facility] Address [address] [place] [address] Care Team Providers Care Cardiac Rehabilitation Program Director Name Role Phone Jordan Sims MD Primary Care Provider [phone] Collin Douglass MD Unavailable [phone] Allergies No known active allergies Medications rivaroxaban [...] Problem Noted Date Diagnosed Date Prostate cancer ([facility]) 06/18/2024 Social History Tobacco Use Types Packs/Day Years Used Date Smoking Tobacco: Never Smokeless Tobacco: Never Tobacco Cessation:Counseling Given: Not Answered Alcohol Use Standard Drinks/Week Comments Not Currently 0 (1 standard drink = 0.6 oz pur e alcohol) [facility] Utilities Answer Date Recorded In the past 12 months has e [employer], gas, oil, or water [employer] threatened to shut off services in your [...] any time in the past 12 m [facility], were you homeless or living in a fpc (including now)? No 06/18/2024 Sex and Gender [...] planning Lifestyle No Yaw Schneider, RN Insurance [facility] Advance Directives * Full Code (Latest Code Status on File) Date Activated Date Inactivated Comments 06/18/2024 5:03 PM 06/21/2024 6:51 PM Care Teams Cardiac Rehabilitation Program Director Relationship Specialty Start Date End Date Jordan Sims MD [address] [facility] [address] [place] [address] PCP - General FAMILY PRACTICE 06/10/24 Collin Douglass MD [address] [facility] [address] [place] [address] CARDIOVASCULAR DISEASE 06/15/24
--- OUTSIDE RECORDS SUMMARY | 2024-11-10 16:37 | XMS_ITS | Continuity of Care Document ---
Author Organization [employer] Address [address] [place] [address] [address] [place] [address] Phone Care Team Providers Care [employer] Task [employer] Planners Name Role Phone Saeed Ambriz Unavailable Unavailable Procedures Procedure Date Progress Note Therapeutic Activities Neuromuscular Re-Ed Hot or Cold Pack Therapeutic Activities Neuromuscular Re-Ed Manual Therapy Hot or Cold Pack Therapeutic Activities Neuromuscular Re-Ed Manual Therapy Hot or Cold Pack Therapeutic Activities Neuromuscular Re-Ed Manual Therapy Hot or Cold Pack Therapeutic Activities Neuromuscular Re-Ed Manual Therapy Hot or Cold Pack Therapeutic Activities Neuromuscular Re-Ed Therapeutic Exercise Therapeutic Activities Neuromuscular Re-Ed Manual Therapy Hot or Cold Pack Progress Note Therapeutic Activities Neuromuscular Re-Ed Manual Therapy Hot or Cold Pack Therapeutic Activities Neuromuscular Re-Ed Therapeutic Activities Neuromuscular Re-Ed Manual Therapy Hot or Cold Pack Therapeutic Activities Neuromuscular Re-Ed Manual Therapy Hot or Cold Pack Therapeutic Activities Neuromuscular Re-Ed Manual Therapy Hot or Cold Pack Doc neg elder mal no plan Identified as not an unhealthy alcohol u ser Not identified as unhealthy alcohol via screening OT Evaluation Low Complexity Therapeutic Activities Neuromuscular Re-Ed Therapeutic Activities Neuromuscular Re-Ed Therapeutic Exercise Therapeutic Activities Neuromuscular Re-Ed Therapeutic Exercise Doc neg elder mal no plan PT Evaluation Moderate Complexity Therapeutic Activities Therapeutic Exercise Advance Directives Directive Yes / No Effective Date File Name No Information Encounters Encounter Description Practice Location Reason(s) For Visit Diagnoses Date Provider Providers Copied on Encounter [facility], [id number], tel:[phone] [place] No Information 5 Thom Tipton. . Referring Provider: Access Direct. [facility], [id number], tel:[phone] [place] No Information 5 Thom Tipton. . Referring Provider: Access Direct. [facility] [place] [address], [place], [id number], tel:[phone] [place] No Information 5 Thom Tipton. . Referring Provider: Access Direct. [facility], [id number], tel:[phone] [place] No Information 5 Tomas Saeed. . Referring Provider: [facility] Direct. [facility] [address], [place], [place], [id number], tel:[phone] [place] No Information - 5 Tomas Saeed. . Referring Provider: Access Direct. [facility], [place], [place], [id number], [place] tel:[phone] [place] No Information 5 Aponte Vika. . Referring Provider: Jason Savage, [address], [place], [address]. tel:[phone] [facility] [address], [place], [place], [id number], tel:[phone] [place] No Information 5 Tomas Saeed. . Referring Provider: Access Direct. [facility], [place], [place], [id number], [place] tel:[phone] [place] No Information 5 Tomas Saeed. . Referring Provider: Access Direct. [facility], [place], [place], [id number], tel:[phone] [place] No Information 5 Aponte Vika. . Referring Provider: Jason Savage, [address], [place], [address]. tel:[phone] [facility], [place], [place], [id number], [place] tel:[phone] [place] No Information 5 Tomas Saeed. . Referring Provider: Access Direct. [facility], [place], [place], [id number], tel:[phone] [place] No Information 5 Thom Tipton. . Referring Provider: Access Direct. [facility] [address], [id number], tel:[phone] [place] No Information 5 Thom Tipton. . Referring Provider: Access Direct. [facility] [address], [id number], tel:[phone] [place] No Information 5 Thom Tipton. . Referring Provider: Access Direct. [facility] [address] [place] [address], [place], [place], [id number], tel:[phone] [place] No Information 5 Aponte Vika. . Referring Provider: Lashay Pantoja, [place], [address]. tel:[phone] [facility] [address], [id number], tel:[phone] [place] No Information 4 Aponte Vika. . Referring Provider: Lashay Pantoja, [place], [address]. tel:[phone] [facility] [address], [id number], tel:[phone] [place] No Information 4 Aponte Vika. . Referring Provider: Lashay Pantoja, [place], [address]. tel:[phone] Family History Family Member Type Diagnosis Age At Onset No Information Payers Payer name Insurance type Covered constitution party ID Authoriza tiaristides(s) Medicare [place] [id number] [facility] [id number] Social History Type Description Quantity Date Captured Comments Sex Male Smoking Status No Information Chief Complaint And Reason For Visit No Information Reason For Referral Reason For Referral No Information Plan Of Treatment Date Type Action Status Referral Ordered: Referrals: Specialist. Evaluate and Treat (related to Adjustment disorder with depressed mood) ordered Referral Ordered: Depression: Depression management program timeframe: 1 Day. (related to Depression) ordered Referral Ordered: Clinical Psychology (related to Depression) ordered Appointment Le Grimes, Minor MARTINEZ/MER Do Eligio 11/24 BOOKED History Of Present Illness Encounter Date Complaint History Of Prese nt Illness No Information Functional Status Date Functional Assessmen t No Information Instructions Date Instruction Additional Infor mation No Information Assessments Type Assessment Date No Information Patient Care Teams Name Effective Dates (start - stop) Status Members No Information
--- OUTSIDE RECORDS SUMMARY | 2024-11-10 16:37 | XMS_ITS | Referral Summary ---
Author Organization [facility] [address] [facility] [address] Address [address] [place] [address] Care Team Providers Care Finished Garment Inspector Name Role Phone Jordan Sims MD Primary Care Prov ider No, Physician Unavailable Encounters Date Type Department Care Team Description 10/13/2024 2:00 PM AIRCRAFT FUSELAGE FRAMER Office Visit [facility] Cardiology [address] [place] [address] Collin Douglass MD CON (obstructive [...] 24 hr tabletIndications: Paroxysmal atrial fibrillation (CMS/HCC) ([facility]) Take 1/2 (one-half) tablet by mouth once [...] Comments Blood Pressure 114/68 10/13/2024 2:02 PM AIRCRAFT FUSELAGE FRAMER Pulse 54 10/13/2024 2:02 PM AIRCRAFT FUSELAGE FRAMER Temperature - - Respiratory Rate - - Oxygen Saturation 94% 10/13/2024 2:02 PM AIRCRAFT FUSELAGE FRAMER Inhaled Oxygen Concentration - - Weight 106.1 kg (234 lb) 10/13/2024 2:02 PM AIRCRAFT FUSELAGE FRAMER Height 175.3 cm (5' 9 ) 10/13/2024 2:02 PM AIRCRAFT FUSELAGE FRAMER Body Mass Index 34.56 10/13/2024 2:02 PM AIRCRAFT FUSELAGE FRAMER Plan of Treatment Not on file Procedures Procedure Name Priority Date/Time Associated Diagnosis Comments POCT LIPID PANEL Routine 10/13/2024 2:02 PM AIRCRAFT FUSELAGE FRAMER Dyslipidemia from Last 3 Months Results * POCT lipid panel (10/13/2024 2:02 PM AIRCRAFT FUSELAGE FRAMER) Cholesterol, POC 196 mg/dL HDL, POC 19 mg/dL Triglycerides, POC 199 mg/dL LDL Cholesterol POC 137 mg/dL Chol/HDL Ratio, POC 7.4 Non-HDL Cholesterol, POC 177 mg/dL Cholesterol Total, POC 196 mg/dL Capillary blood 10/13/2024 2 :02 PM AIRCRAFT FUSELAGE FRAMER Collin Douglass MD POINT OF CARE TEST ORDERA BLES Final Result from Last 3 Months Insurance [facility] [place] Care Teams Finished Garment Inspector Relationship Specialty Start Date End Date Jordan Sims MD [address] [place] [address] PCP - General Family Medicine 03/27/18 No, Physician 03/27/18
--- OUTSIDE RECORDS SUMMARY | 2024-11-10 16:37 | XMS_ITS | Encounter Summary ---
Author Organization [facility] Address [address] [place] [address] Phone Care Team Providers Care Record Systems Analyst Name Role Phone Jimmy Patton MD Primary Care Provider [phone] No, Physician Primary Care Provider [phone] Jordan Sims MD Primary Care Prov ider Jimmy Patton MD Unavailable [phone] No, Physician Unavailable Encounter Details Date Type Department Care Team (Late st Contact Info) Description 12/12/2017 Orders Only [facility] ProviderTerrance MD [facility] [place] [address] Social History Tobacco Use Types [...] on filedocumented in this encounter Care Teams Record Systems Analyst Relationship Specialty Start Date End Date Jimmy Patton MD PCP - General Internal Medicine 02/18/18 02/27/18 No, Physician PCP - General 02/28/18 03/26/18 Jordan Sims MD [address] [place] [address] PCP - General Family Medicine 03/27/18 Jimmy Patton MD Internal Medicine 02/28/18 03/26/18 No, Physician 03/27/18 documented as of this encounter
--- OUTSIDE RECORDS SUMMARY | 2024-11-10 16:37 | XMS_ITS | Encounter Summary ---
Author Organization [facility] Address [address] [place] [address] Phone Care Team Providers Care Business Development Analyst Name Role Phone Jimmy Patton MD Primary Care Provider No, Physician Primary Care Provider [phone] Jordan Sims MD Primary Care Prov ider Jimmy Patton MD Unavailable [phone] No, Physician Unavailable Encounter Details Date Type Department Care Team (Late st Contact Info) Description 12/16/2017 Orders Only [facility] ProviderTerrance MD [facility] [place] [address] Social History Tobacco Use Types [...] on filedocumented in this encounter Care Teams Business Development Analyst Relationship Specialty Start Date End Date Jimmy Patton MD PCP - General Internal Medicine 02/18/18 02/27/18 No, Physician PCP - General 02/28/18 03/26/18 Jordan Sims MD [address] [place] [address] PCP - General Family Medicine 03/27/18 Jimmy Patton MD Internal Medicine 02/28/18 03/26/18 No, Physician 03/27/18 documented as of this encounter
--- OUTSIDE RECORDS SUMMARY | 2024-11-10 16:37 | XMS_ITS | Encounter Summary ---
Author Organization [facility] Address [address] [place] [address] Phone Care Team Providers Care Application Support Manager Name Role Phone Jimmy Patton MD Primary Care Provider [phone] No, Physician Primary Care Provider [phone] Jordan Sims MD Primary Care Prov ider Jimmy Patton MD Unavailable [phone] No, Physician Unavailable Encounter Details Date Type Department Care Team (Late st Contact Info) Description 12/19/2017 Orders Only [facility] ProviderTerrance MD [facility] [place] [address] Social History Tobacco Use Types [...] filedocumented in this encounter Care Teams Application Support Manager Relationship Specialty Start Date End Date Jimmy Patton MD PCP - General Internal Medicine 02/18/18 02/27/18 No, Physician PCP - General 02/28/18 03/26/18 Jordan Sims MD [address] [place] [address] PCP - General Family Medicine 03/27/18 Jimmy Patton MD Internal Medicine 02/28/18 03/26/18 No, Physician 03/27/18 documented as of this encounter
--- OUTSIDE RECORDS SUMMARY | 2024-11-10 16:37 | XMS_ITS | Clinical Summary ---
Author Organization [facility] Address [address] [place] [address] Phone Care Team Providers Care Analyst Name Role Phone Jordan Manning MD Primary Care Provider [phone] Allergies No known active allergies Medications Medication [...] Comments Influenza Vaccine (#1) 2024 Care Teams Analyst Relationship Specialty Start Date End Date Jordan Manning MD [address] [place] [address] PCP - General Family Medicine 06/08/21
--- OUTSIDE RECORDS SUMMARY | 2024-11-10 16:37 | XMS_ITS | Encounter Summary ---
Author Organization [facility] Address [address] [place] [address] Phone Care Team Providers Care Crime Lab Analyst Name Role Phone Jimmy Patton MD Primary Care Provider No, Physician Primary Care Provider [phone] Jordan Sims MD Primary Care Prov ider Jimmy Patton MD Unavailable [phone] No, Physician Unavailable Encounter Details Date Type Department Care Team (Late st Contact Info) Description 12/30/2017 Orders Only [facility] ProviderTerrance MD [facility] [place] [address] Social History Tobacco Use Types [...] on filedocumented in this encounter Care Teams Crime Lab Analyst Relationship Specialty Start Date End Date Jimmy Patton MD PCP - General Internal Medicine 02/18/18 02/27/18 No, Physician PCP - General 02/28/18 03/26/18 Jordan Sims MD [address] [place] [address] PCP - General Family Medicine 03/27/18 Jimmy Patton MD Internal Medicine 02/28/18 03/26/18 No, Physician 03/27/18 documented as of this encounter
--- OUTSIDE RECORDS SUMMARY | 2024-11-10 16:37 | XMS_ITS | Clinical Summary ---
Author Organization [facility] [address] Address [address] [place] [address] Care Team Providers Care Stone Unloader Name Role Phone Jordan Sims MD Primary [...] Department Care Team Description 10/13/2024 2:00 PM LAB ANIMAL TECHNOLOGIST Office Visit [facility] Cardiology [address] [place] [address] Collin Douglass MD CON (obstructive [...] Comments Blood Pressure 114/68 10/13/2024 2:02 PM LAB ANIMAL TECHNOLOGIST Pulse 54 10/13/2024 2:02 PM LAB ANIMAL TECHNOLOGIST Temperature - - Respiratory Rate - - Oxygen Saturation 94% 10/13/2024 2:02 PM LAB ANIMAL TECHNOLOGIST Inhaled Oxygen Concentration - - Weight 106.1 kg (234 lb) 10/13/2024 2:02 PM LAB ANIMAL TECHNOLOGIST Height 175.3 cm (5' 9 ) 10/13/2024 2:02 PM LAB ANIMAL TECHNOLOGIST Body Mass Index 34.56 10/13/2024 2:02 PM LAB ANIMAL TECHNOLOGIST Plan of Treatment Health Maintenance Due Date [...] POCT LIPID PANEL Routine 10/13/2024 2:02 PM LAB ANIMAL TECHNOLOGIST Dyslipidemia from Last 3 Months Results * POCT lipid panel (10/13/2024 2:02 PM LAB ANIMAL TECHNOLOGIST) Cholesterol, POC 196 mg/dL HDL, POC 19 mg/dL Triglycerides, POC 199 mg/dL LDL Cholesterol POC 137 mg/dL Chol/HDL Ratio, POC 7.4 Non-HDL Cholesterol, POC 177 mg/dL Cholesterol Total, POC 196 mg/dL Capillary blood 10/13/2024 2 :02 PM LAB ANIMAL TECHNOLOGIST us Collin Douglass MD POINT OF CARE TEST ORDERA BLES Final Result from Last 3 Months Insurance [place] Care Teams Stone Unloader Relationship Specialty Start Date End Date Jordan Sims MD [address] [place] [address] PCP - General Family Medicine 03/27/18 No, Physician 03/27/18
--- OUTSIDE RECORDS SUMMARY | 2024-11-10 16:38 | XMS_ITS | Encounter Summary ---
Author Organization [facility] Address [address] [place] [address] Phone Care Team Providers Care Back Hoe Machine Operator Name Role Phone Jimmy Patton MD Primary Care Provider [phone] No, Physician Primary Care Provider [phone] Jordan Sims MD Primary Care Prov ider Jimmy Patton MD Unavailable [phone] No, Physician Unavailable Encounter Details Date Type Department Care Team (Late st Contact Info) Description 12/23/2017 Orders Only [facility] ProviderTerrance [place] [address] Social History Tobacco Use Types [...] on filedocumented in this encounter Care Teams Back Hoe Machine Operator Relationship Specialty Start Date End Date Jimmy Patton MD PCP - General Internal Medicine 02/18/18 02/27/18 No, Physician PCP - General 02/28/18 03/26/18 Jordan Sims MD [address] [place] [address] PCP - General Family Medicine 03/27/18 Jimmy Patton MD Internal Medicine 02/28/18 03/26/18 No, Physician 03/27/18 documented as of this encounter
--- OUTSIDE RECORDS SUMMARY | 2024-11-10 16:38 | XMS_ITS | Encounter Summary ---
Author Organization [facility] Address [address] [place] [address] Phone Care Team Providers Care Movie Projectionist Name Role Phone Jimmy Patton MD Primary Care Provider [phone] No, Physician Primary Care Provider [phone] Jordan Sims MD Primary Care Prov ider Jimmy Patton MD Unavailable [phone] No, Physician Unavailable Encounter Details Date Type Department Care Team (Late st Contact Info) Description 12/26/2017 Orders Only [facility] ProviderTerrance MD [facility] [place] [place] [address] Social History Tobacco Use Types [...] on filedocumented in this encounter Care Teams Movie Projectionist Relationship Specialty Start Date End Date Jimmy Patton MD PCP - General Internal Medicine 02/18/18 02/27/18 No, Physician PCP - General 02/28/18 03/26/18 Jordan Sims MD [address] [place] [address] PCP - General Family Medicine 03/27/18 Jimmy Patton MD Internal Medicine 02/28/18 03/26/18 No, Physician 03/27/18 documented as of this encounter
--- OUTSIDE RECORDS SUMMARY | 2024-11-10 16:38 | XMS_ITS | Clinical Summary ---
Author Organization [facility] Anel Elizabeth Address [address] [place] [address] Care Team Providers Care Director Software Development Name Role Phone Jordan Sims MD Primary Care Provider [phone] Allergies No known active allergies Medications valsartan [...] on file Legal Sex Male 3:15 PM LUMP INSPECTOR Gender Identity Not on file Sexual Orientation [...] 1-dose 75+ series) 11/14/2034 Care Teams Director Software Development Relationship Specialty Start Date End Date Jordan Sims MD [address] [place] [phone] PCP - General Family Practice 10/05/19
== END 2024-11-10 14:33 | disposition left against medical advice (07) ==
PROVIDERS: Emergency Provider Emergency Medicine; PCP Family Medicine Adolescent Medicine
DX: I48.91 Unspecified atrial fibrillation (principal)
CPT/HCPCS: 93005; 99199

== ENCOUNTER 2025-01-03 01:55 | Emergency (ER) | payer MEDICARE, SELFPAY ==
--- OUTSIDE RECORDS SUMMARY | 2025-01-03 01:57 | XMS_ITS | Referral Summary ---
Author Organization [facility] [address] [place] [address] [address] [place] [address] Care Team Providers Care Poultry Farm Worker Name Role Phone Jordan Sims MD Primary Care Prov ider No, Physician Unavailable Encounters Date Type Department Care Team Description 12/22/2024 Results Follow-Up [facility] Cardiology at [address] [place] [address] Miranda Bajwa MD 12/17/2024 10:00 AM CDT Ancillary Procedure [facility] Cardiology at [address] [place] [id number] Paroxysmal atrial fibrillation (HCC) 11/11/2024 2:30 PM GLOBAL ACCOUNT DIRECTOR Office Visit [facility] Cardiology at [address] [place] [address] Miranda Bajwa MD Paroxysmal atrial fibrillation (HCC) (Primary Dx); RBBB; Dyslipidemia; Chronic anticoagulation; CON (obstructive sleep apnea) 10/13/2024 2:00 PM GLOBAL ACCOUNT DIRECTOR Office Visit [facility] Cardiology [address] [facility] [address] [place] [address] Miranda Bajwa MD CON (obstructive sleep apnea) (Primary Dx); Hypothyroidism, unspecified type; Paroxysmal atrial fibrillation (HCC); RBBB; Dyslipidemia from Last 3 Months [...] mouth daily 90 tablet 3 022 Active Gemtesa 75 mg tablet Take 75 [...] once daily 90 tablet 3 025 Active Xarelto 20 mg tabletIndications: Chronic anticoagulation Take 1 tablet by mouth once daily 90 tablet 025 Active metoprolol XL (TOPROL-XL) 100 mg 24 hr tabletIndications: Paroxysmal atrial fibrillation (HCC) Take 1/2 (one-half) tablet by mouth once daily 45 tablet 3 025 Active metoprolol XL (TOPROL-XL) 100 mg 24 hr tabletIndications: Paroxysmal atrial fibrillation (HCC) Take 1/2 (one-half) tablet by mouth once daily 45 tablet 024 2024 Discontinued Active Problems Problem Noted Date Diagnosed Date Dyslipidemia 07/19/2022 Tiredness 06/07/2022 Abnormal ECG 06/07/2022 RBBB 06/07/2022 CON (obstructive sleep apnea) 07/06/2021 Chronic anticoagulation 07/08/2018 Atrial fibrillation 03/27/2018 Bilateral pulmonary embolism 03/27/2018 History of total hip arthroplasty 03/27/2018 Hypothyroidism [...] Sign Reading Time Taken Comments Blood Pressure 128/86 11/11/2024 2:19 PM GLOBAL ACCOUNT DIRECTOR Pulse 55 11/11/2024 2:19 PM GLOBAL ACCOUNT DIRECTOR Temperature - - Respiratory Rate - - Oxygen Saturation 95% 11/11/2024 2:19 PM GLOBAL ACCOUNT DIRECTOR Inhaled Oxygen Concentration - - Weight 107 kg (236 lb) 11/11/2024 2:19 PM GLOBAL ACCOUNT DIRECTOR Height 175.3 cm (5' 9 ) 11/11/2024 2:19 PM GLOBAL ACCOUNT DIRECTOR Body Mass Index 34.85 11/11/2024 2:19 PM GLOBAL ACCOUNT DIRECTOR Plan of Treatment Not on file Procedures Procedure Name Priority Date/Time Associated Diagnosis Comments TRANSTHORACIC ECHO (TTE) COMPLETE W DOPPLER/CF WO CONTRAST Routine 12/17/2024 10:38 AM CDT Paroxysmal atrial fibrillation (HCC) ELECTROCARDIOGRAM REPORT Routine 025 8:14 AM GLOBAL ACCOUNT DIRECTOR Paroxysmal atrial fibrillation (HCC) RBBB POCT LIPID PANEL Routine 10/13/2024 2:02 PM GLOBAL ACCOUNT DIRECTOR Dyslipidemia from Last 3 Months Results * TRANSTHORACIC ECHO (TTE) COMPLETE W DOPPLER/CF WO CONTRAST (12/17/2024 10:38 AM CDT) LV EF 65 % CONS SCIMAGE Anatomical Region Laterality Modality Ultrasound 12/17/2024 10:0 7 AM CDT Narrative 12/17/2024 12:47 PM CDT [facility] Cardiology [address], [address], [place] [address] P:[phone] P:[phone] Echocardiographic Report Patient Name: CLAUDIO LOVE D : 1960 Study Date: 12/17/2024 10:07:40 AM Gender: M Tech: Location: EDW Ref Provider: MIRANDA BAJWA Height(Cm): 175 BSA: 2.28 Weight(Kg): 107 Heart Rate: 57 BP: 128 / 86 Quality: Good Order Provider: MIRANDA BAJWA PROCEDURES: Echocardiographic Report: Transthoracic echocardiogram with complete 2D, M-Mode, and color Doppler examination. With Strain Analysis. INDICATIONS: I48.0 Paroxysmal atrial fibrillation. MEASUREMENTS: 2D/MM Value Range Doppler Value Range EF Mod BP 70 % [ 52 - 72 ] BRENDAN Vmax 2.39 cm2 [ 2.00 - 4.00 ] EF Teich MM 71 % [ 52 - 72 ] AV Mean PG 8 mmHg Estimated EF 65 % AV Peak Gaurav 1.82 m/s [ 1.00 - 1.70 ] LVIDd 2D 6.06 cm [ 4.20 - 5.80 ] AV Peak PG 13 mmHg LVIDd MM 4.58 cm [ 4.20 - 5.80 ] AV VTI 38.74 cm LVIDs 2D 3.41 cm [ 2.50 - 4.00 ] LVOT Diam 1.96 cm [ 1.70 - 2.10 ] LVIDs MM 2.74 cm [ 2.50 - 4.00 ] LVOT Peak Gaurav 1.44 m/s [ 0.70 - 1.10 ] LVPWd 2D 1.18 cm [ 0.60 - 1.00 ] LVOT VTI 28.87 cm LVPWd MM 1.23 cm [ 0.60 - 1.00 ] MV E Peak Gaurav 1.08 m/s [ 0.60 - 1.30 ] IVSd 2D 1.14 cm [ 0.60 - 1.00 ] MV A Peak Gaurav 0.87 m/s [ 1.00 - 1.20 ] IVSd MM 1.51 cm [ 0.60 - 1.00 ] MV Decel Time 177 msec [ 104 - 258 ] LA Dimension MM 3.75 cm [ 3.00 - 4.00 ] PV Peak Gaurav 1.11 m/s [ 0.40 - 0.80 ] AoR Diam MM 3.96 cm [ 3.10 - 3.70 ] TR Peak Gaurav 2.00 m/s [ 1.00 - 2.80 ] LA Volume Index 28 cc/m2 [ 16 - 34 ] TR Peak PG 16 mmHg RVSP 24.00 mmHg [ 10.00 - 36.00 ] Lateral E` 0.07 m/s [ 0.10 - 0.15 ] E/E` 15 2D/MM Value Range Doppler Value Range - FINDINGS: Interpretation Site: Exam was interpreted at [facility]. Left Ventricle: Normal left ventricular systolic function. No focal wall motion abnormalities. Mild to moderate concentric left ventricular hypertrophy. Mild enlargement of left ventricle cavity. There is pseudonormal diastolic dysfunction Grade II. Ejection fraction is measured at 70 %. Ejection Fraction is visually estimated to be 65 %. Global Longitudinal Strain is -13 %. GLS is abnormal. Right Ventricle: Normal right ventricular size. Normal right ventricular systolic function. Left Atrium: There is mild enlargement of left atrium. Right Atrium: There is mild enlargement of right atrium. Atrial Septum: Normal atrial septum. Mitral Valve: Normal appearance of the mitral valve. Mild mitral valve regurgitation. There is no hemodynamically significant mitral stenosis by Doppler. Aortic Valve: No evidence of hemodynamically significant aortic stenosis by Doppler. Aortic cusps appear mildly sclerotic. Trileaflet aortic valve. Trace aortic valve regurgitation. Tricuspid Valve: Normal appearance of the tricuspid valve. Normal right ventricular systolic pressure. Estimated peak RVSP is 28 mmHg. Mild tricuspid regurgitation. Pulmonic Valve: Normal appearance of the pulmonic valve. No pulmonic stenosis. Mild pulmonic regurgitation. Pericardium: Normal pericardium with no significant pericardial effusion. Aorta: Aortic root is mildly dilated. IVC: Normal size and normal respiratory collapse consistent with normal right atrial pressure (<5 mmHg). CONCLUSIONS: Normal left ventricular systolic function. No focal wall motion abnormalities. Mild to moderate concentric left ventricular hypertrophy. Mild enlargement of left ventricle cavity. There is pseudonormal diastolic dysfunction Grade II. Ejection fraction is measured at 70 %. Ejection Fraction is visually estimated to be 65 %. Global Longitudinal Strain is -13 %. GLS is abnormal. There is mild enlargement of left atrium. There is mild enlargement of right atrium. Mild mitral valve regurgitation. Mild tricuspid regurgitation. Mild pulmonic regurgitation. Aortic root is mildly dilated. Normal sinus rhythm. Electronically Signed By: Miranda Bajwa MD 12/17/2024 12:47:04 PM CDT Procedure Note Miranda Bajwa MD - 12/17/2024 [facility] Cardiology [facility], [address], [place] [address] P:[phone] P:[phone] Echocardiographic Report Patient Name: CLAUDIO LOVE D : 1960 Study Date: 12/17/2024 10:07:40 AM Gender: M Tech: Location: EDW Ref Provider: MIRANDA BAJWA Height(Cm): 175 BSA: 2.28 Weight(Kg): 107 Heart Rate: 57 BP: 128 / 86 Quality: Good Order Provider: MIRANDA BAJWA PROCEDURES: Echocardiographic Report: Transthoracic echocardiogram with complete 2D, M-Mode, and color Dopplerexamination. With Strain Analysis. INDICATIONS: I48.0 Paroxysmal atrial fibrillation. MEASUREMENTS: 2D/MM Value Range Doppler ValueRange EF Mod BP 70 % [ 52 - 72 ] BRENDAN Vmax 2.39cm2 [ 2.00 - 4.00 ] EF Teich MM 71 % [ 52 - 72 ] AV Mean PG 8mmHg Estimated EF 65 % AV Peak Gaurav 1.82m/s [ 1.00 - 1.70 ] LVIDd 2D 6.06 cm [ 4.20 - 5.80 ] AV Peak PG 13mmHg LVIDd MM 4.58 cm [ 4.20 - 5.80 ] AV VTI 38.74cm LVIDs 2D 3.41 cm [ 2.50 - 4.00 ] LVOT Diam 1.96 cm[ 1.70 - 2.10 ] LVIDs MM 2.74 cm [ 2.50 - 4.00 ] LVOT Peak Gaurav 1.44m/s [ 0.70 - 1.10 ] LVPWd 2D 1.18 cm [ 0.60 - 1.00 ] LVOT VTI 28.87cm LVPWd MM 1.23 cm [ 0.60 - 1.00 ] MV E Peak Gaurav 1.08m/s [ 0.60 - 1.30 ] IVSd 2D 1.14 cm [ 0.60 - 1.00 ] MV A Peak Gaurav 0.87m/s [ 1.00 - 1.20 ] IVSd MM 1.51 cm [ 0.60 - 1.00 ] MV Decel Time 177msec [ 104 - 258 ] LA Dimension MM 3.75 cm [ 3.00 - 4.00 ] PV Peak Gaurav 1.11m/s [ 0.40 - 0.80 ] AoR Diam MM 3.96 cm [ 3.10 - 3.70 ] TR Peak Gaurav 2.00m/s [ 1.00 - 2.80 ] LA Volume Index 28 cc/m2 [ 16 - 34 ] TR Peak PG 16mmHg RVSP 24.00 mmHg [ 10.00 - 36.00 ] Lateral E` 0.07 m/s [ 0.10 - 0.15 ] E/E` 15 2D/MM Value Range Doppler ValueRange - FINDINGS: Interpretation Site: Exam was interpreted at [facility]. Left Ventricle: Normal left ventricular systolic function. No focal wall motionabnormalities. Mild to moderate concentric left ventricular hypertrophy. Mild enlargement of leftventricle cavity. There is pseudonormal diastolic dysfunction Grade II. Ejectionfraction is measured at 70 %. Ejection Fraction is visually estimated to be 65 %.Global Longitudinal Strain is -13 %. GLS is abnormal. Right Ventricle: Normal right ventricular size. Normal right ventricular systolicfunction. Left Atrium: There is mild enlargement of left atrium. Right Atrium: There is mild enlargement of right atrium. Atrial Septum: Normal atrial septum. Mitral Valve: Normal appearance of the mitral valve. Mild mitral valve regurgitation.There is no hemodynamically significant mitral stenosis by Doppler. Aortic Valve: No evidence of hemodynamically significant aortic stenosis by Doppler.Aortic cusps appear mildly sclerotic. Trileaflet aortic valve. Trace aortic valveregurgitation. Tricuspid Valve: Normal appearance of the tricuspid valve. Normal right ventricularsystolic pressure. Estimated peak RVSP is 28 mmHg. Mild tricuspid regurgitation. Pulmonic Valve: Normal appearance of the pulmonic valve. No pulmonic stenosis. Mildpulmonic regurgitation. Pericardium: Normal pericardium with no significant pericardial effusion. Aorta: Aortic root is mildly dilated. IVC: Normal size and normal respiratory collapse consistent with normal rightatrial pressure (<5 mmHg). CONCLUSIONS: Normal left ventricular systolic function. No focal wall motionabnormalities. Mild to moderate concentric left ventricular hypertrophy. Mild enlargement of leftventricle cavity. There is pseudonormal diastolic dysfunction Grade II. Ejectionfraction is measured at 70 %. Ejection Fraction is visually estimated to be 65 %.Global Longitudinal Strain is -13 %. GLS is abnormal. There is mild enlargement of left atrium. There is mild enlargement of right atrium. Mild mitral valve regurgitation. Mild tricuspid regurgitation. Mild pulmonic regurgitation. Aortic root is mildly dilated. Normal sinus rhythm. Electronically Signed By: Miranda Bajwa MD 12/17/2024 12:47:04 PM CDT Miranda Bajwa MD CV ECHO PROCEDURES Final Result * Electrocardiogram Report (11/11/2024 8:14 AM GLOBAL ACCOUNT DIRECTOR) Miranda Bajwa MD ECG ORDERABLES Final Res ult * POCT lipid panel (10/13/2024 2:02 PM GLOBAL ACCOUNT DIRECTOR) Cholesterol, POC 196 mg/dL HDL, POC 19 mg/dL Triglycerides, POC 199 mg/dL LDL Cholesterol POC 137 mg/dL Chol/HDL Ratio, POC 7.4 Non-HDL Cholesterol, POC 177 mg/dL Cholesterol Total, POC 196 mg/dL Capillary blood 10/13/2024 2 :02 PM GLOBAL ACCOUNT DIRECTOR us Miranda Bajwa MD POINT OF CARE TEST ORDERA BLES Final Result from Last 3 Months Insurance [place] MEDICARE [facility] MEDICARE SUPPLEMENT Care Teams Poultry Farm Worker Relationship Specialty Start Date End Date Jordan Sims MD [address] [place] [address] PCP - General Family Medicine 03/27/18 No, Physician 03/27/18
--- OUTSIDE RECORDS SUMMARY | 2025-01-03 01:57 | XMS_ITS | Encounter Summary ---
Author Organization [facility] Address [address] [place] [address] Phone Care Team Providers Care Auto Self Service Station Attendant Name Role Phone Jimmy Patton MD Primary Care Provider [phone] No, Physician Primary Care Provider [phone] Jordan Sims MD Primary Care Prov ider Jimmy Patton MD Unavailable [phone] No, Physician Unavailable Encounter Details Date Type Department Care Team (Late st Contact Info) Description 01/02/2018 Orders Only [facility] [place]Terrance [place] [address] Social History Tobacco Use Types [...] on filedocumented in this encounter Care Teams Auto Self Service Station Attendant Relationship Specialty Start Date End Date Jimmy Patton MD PCP - General Internal Medicine 02/18/18 02/27/18 No, Physician PCP - General 02/28/18 03/26/18 Jordan Sims MD [address] [place] [address] PCP - General Family Medicine 03/27/18 Jimmy Patton MD Internal Medicine 02/28/18 03/26/18 No, Physician 03/27/18 documented as of this encounter
--- OUTSIDE RECORDS SUMMARY | 2025-01-03 01:57 | XMS_ITS | Encounter Summary ---
Author Organization [facility] Address [address] [place] [address] Care Team Providers Care Professor Of Early Childhood Education Name Role Phone Jordan Sims MD Primary Care Prov ider No, Physician Unavailable Encounter Details Date Type Department Care Team (Late st Contact Info) Description 12/22/2024 Results Follow-Up [facility] Cardiology at [address] [place] [address] Collin Douglass MD [facility] [address] Social History Tobacco Use Types Packs/Day Years Used Date Smoking Tobacco: Never Smokeless Tobacco: Never Alcohol Use Standard Drinks/Week Comments No 0 (1 standard drink = 0.6 oz pur e alcohol) Sex and Gender Information Value Date Recorded Sex Assigned at Not on file Legal Sex Male 5:40 PM CDT Gender Identity Not on file Sexual Orientation Not on file documented as of this encounter Plan of Treatment Not on file documented as of this encounter Visit Diagnoses Not on filedocumented in this encounter Care Teams Professor Of Early Childhood Education Relationship Specialty Start Date End Date Jordan Sims MD [address] [place] [address] PCP - General Family Medicine 03/27/18 No, Physician 03/27/18 documented as of this encounter
--- OUTSIDE RECORDS SUMMARY | 2025-01-03 01:57 | XMS_ITS | Encounter Summary ---
Author Organization [facility] Address [address] [place] [address] Phone Care Team Providers Care Record Pressman Name Role Phone Jimmy Patton MD Primary Care Provider No, Physician Primary Care Provider [phone] Jordan Sims MD Primary Care Prov ider Jimmy Patton MD Unavailable [phone] No, Physician Unavailable Encounter Details Date Type Department Care Team (Late st Contact Info) Description 01/06/2018 Orders Only [facility] ProviderTerrance MD [facility] [place] [address] Social History Tobacco Use Types [...] filedocumented in this encounter Care Teams Record Pressman Relationship Specialty Start Date End Date Jimmy Patton MD PCP - General Internal Medicine 02/18/18 02/27/18 No, Physician PCP - General 02/28/18 03/26/18 Jordan Sims MD [address] [place] [address] PCP - General Family Medicine 03/27/18 Jimmy Patton MD Internal Medicine 02/28/18 03/26/18 No, Physician 03/27/18 documented as of this encounter
--- OUTSIDE RECORDS SUMMARY | 2025-01-03 01:57 | XMS_ITS | Encounter Summary ---
Author Organization [facility] Address [address] [place] [address] Phone Care Team Providers Care Feather Maker Name Role Phone Jimmy Patton MD Primary Care Provider No, Physician Primary Care Provider [phone] Jordan Sims MD Primary Care Prov ider Jimmy Patton MD Unavailable [phone] No, Physician Unavailable Encounter Details Date Type Department Care Team (Late st Contact Info) Description 12/23/2017 Orders Only [facility] ProviderTerrance MD [facility] [place] [address] Social History Tobacco Use Types [...] on filedocumented in this encounter Care Teams Feather Maker Relationship Specialty Start Date End Date Jimmy Patton MD PCP - General Internal Medicine 02/18/18 02/27/18 No, Physician PCP - General 02/28/18 03/26/18 Jordan Sims MD [address] [place] [address] PCP - General Family Medicine 03/27/18 Jimmy Patton MD Internal Medicine 02/28/18 03/26/18 No, Physician 03/27/18 documented as of this encounter
--- OUTSIDE RECORDS SUMMARY | 2025-01-03 01:57 | XMS_ITS | Clinical Summary ---
Author Organization [facility] Address [address] [place] [address] Phone Care Team Providers Care Airplane Tester Name Role Phone Jordan Manning MD Primary Care Provider [phone] Allergies No known active allergies Medications amLODIPine (NORVASC) 5 MG tablet 1 Active Xarelto 20 MG tablet 1 Active metoprolol succinate XL (TOPROL-XL) 100 MG 24 hr tablet 1 Active levothyroxine (SYNTHROID) 125 MCG tablet 1 Active zolpidem (AMBIEN) 10 MG tablet 1 Active hydroCHLOROthia zide (MICROZIDE) 12.5 MG capsule 1 Active tadalafil (CIALIS) 20 MG tablet 1 Active Testosterone 20 % cream Active clobetasol (TEMOVATE) 0.05 % cream APPLY CREAM TOPICALLY ONCE DAILY 2 Active HYDROcodone-evette taminophen (NORCO) 5-325 MG per tablet Take 1 tablet by mouth 3 (three) times a day if needed for pain 2 Active modafinil (PROVIGIL) 200 MG tablet TAKE 1/2 TO 1 (ONE-HALF TO ONE) TABLET BY MOUTH ONCE DAILY IN THE MORNING 2 Active montelukast (SINGULAIR) 10 MG tablet Take 10 mg by mouth 1 (one) time each day prn 2 Active olmesartan (BENICAR) 40 MG tablet Take 40 mg by mouth 1 (one) time each day 2 Active tamsulosin (FLOMAX) 0.4 MG 24 hr capsule Take 0.4 mg by mouth 2 (two) times a day 2 Active Active Problems Problem Noted Date Diagnosed [...] at Not on file Legal Sex Male 1:23 PM MDT Gender Identity Not on file Sexual Orientation [...] Health Maintenance Due Date Last Done Comments Pneumococcal PPSV23/PCV13 65 + Years / Low and Medium Risk (1 of 4 - PCV) 11/14/2009 Influenza Vaccine (Season Ended) 2025 Insurance Care Teams Airplane Tester Relationship Specialty Start Date End Date Jordan Manning MD [address] [address] PCP - General Family Medicine 06/08/21
--- OUTSIDE RECORDS SUMMARY | 2025-01-03 01:57 | XMS_ITS | Clinical Summary ---
Author Organization [facility] Address [address] [place] [address] Care Team Providers Care Afterschool Babysitter Name Role Phone Jordan Sims MD Primary Care Provider [phone] Collin Douglass MD Unavailable [phone] Allergies No known active allergies Medications rivaroxaban [...] Problem Noted Date Diagnosed Date Prostate cancer ([facility]) 06/18/2024 Social History Tobacco Use Types Packs/Day Years Used Date Smoking Tobacco: Never Smokeless Tobacco: Never Tobacco Cessation:Counseling Given: Not Answered Alcohol Use Standard Drinks/Week Comments Not Currently 0 (1 standard drink = 0.6 oz pur e alcohol) [facility] Utilities Answer Date Recorded In the past 12 months has e [employer], gas, oil, or water [employer] threatened to shut off services in your [...] time in the past 12 m [facility], were you homeless or living in a fdc (including now)? No 06/18/2024 Sex and Gender [...] Colorectal Cancer Screening Colonoscopy (10 Years) 1960 Hepatitis C 11/14/1977 DTaP, Tdap and Td Vaccines ( 1 - Tdap) 11/14/1978 Pneumococcal Vaccine: 50+ Ye ars (1 of 1 - PCV) 11/14/2009 Zoster Vaccines (1 of 2) 11/14/2009 COVID-19 Vaccine ( - 2023-2 5 season) 2024 RSV Immunization or 60+ Years (1 [...] planning Lifestyle No Yaw Schneider, RN Insurance [facility] Advance Directives * Full Code (Latest Code Status on File) Date Activated Date Inactivated Comments 06/18/2024 5:03 PM 06/21/2024 6:51 PM Care Teams Afterschool Babysitter Relationship Specialty Start Date End Date Jordan Sims MD [address] [facility] [address] [place] [address] PCP - General FAMILY PRACTICE 06/10/24 Collin Douglass MD [address] [address] CARDIOVASCULAR DISEASE 06/15/24
--- OUTSIDE RECORDS SUMMARY | 2025-01-03 01:57 | XMS_ITS | Encounter Summary ---
Author Organization [facility] Address [address] [place] [address] Phone Care Team Providers Care Education Site Manager Name Role Phone Jimmy Patton MD Primary Care Provider No, Physician Primary Care Provider [phone] Jordan Sims MD Primary Care Prov ider Jimmy Patton MD Unavailable [phone] No, Physician Unavailable Encounter Details Date Type Department Care Team (Late st Contact Info) Description 12/16/2017 Orders Only [facility] ProviderTerrance MD [facility] [place] [address] Social History Tobacco Use Types [...] on filedocumented in this encounter Care Teams Education Site Manager Relationship Specialty Start Date End Date Jimmy Patton MD PCP - General Internal Medicine 02/18/18 02/27/18 No, Physician PCP - General 02/28/18 03/26/18 Jordan Sims MD [address] [place] [address] PCP - General Family Medicine 03/27/18 Jimmy Patton MD Internal Medicine 02/28/18 03/26/18 No, Physician 03/27/18 documented as of this encounter
--- OUTSIDE RECORDS SUMMARY | 2025-01-03 01:57 | XMS_ITS | Encounter Summary ---
Author Organization [facility] Address [address] [place] [address] Phone Care Team Providers Care Cake Press Operator Name Role Phone Jimmy Patton MD Primary Care Provider No, Physician Primary Care Provider [phone] Jordan Sims MD Primary Care Prov ider Jimmy Patton MD Unavailable [phone] No, Physician Unavailable Encounter Details Date Type Department Care Team (Late st Contact Info) Description 12/12/2017 Orders Only [facility] ProviderTerrance MD [facility] [place] [address] Social History Tobacco Use Types [...] on filedocumented in this encounter Care Teams Cake Press Operator Relationship Specialty Start Date End Date Jimmy Patton MD PCP - General Internal Medicine 02/18/18 02/27/18 No, Physician PCP - General 02/28/18 03/26/18 Jordan Sims MD [address] [place] [address] PCP - General Family Medicine 03/27/18 Jimmy Patton MD Internal Medicine 02/28/18 03/26/18 No, Physician 03/27/18 documented as of this encounter
--- OUTSIDE RECORDS SUMMARY | 2025-01-03 01:57 | XMS_ITS | Encounter Summary ---
Author Organization [facility] Address [address] [place] [address] Phone Care Team Providers Care Education And Development Manager Name Role Phone Jimmy Patton MD Primary Care Provider [phone] No, Physician Primary Care Provider [phone] Jordan Sims MD Primary Care Prov ider Jimmy Patton MD Unavailable [phone] No, Physician Unavailable Encounter Details Date Type Department Care Team (Late st Contact Info) Description 12/19/2017 Orders Only [facility] ProviderTerrance MD [facility] [place] [address] Social History Tobacco Use Types [...] filedocumented in this encounter Care Teams Education And Development Manager Relationship Specialty Start Date End Date Jimmy Patton MD PCP - General Internal Medicine 02/18/18 02/27/18 No, Physician PCP - General 02/28/18 03/26/18 Jordan Sims MD [address] [place] [address] PCP - General Family Medicine 03/27/18 Jimmy Patton MD Internal Medicine 02/28/18 03/26/18 No, Physician 03/27/18 documented as of this encounter
--- OUTSIDE RECORDS SUMMARY | 2025-01-03 01:57 | XMS_ITS | Clinical Summary ---
Author Organization [facility] [address] Address [address] [place] [address] Care Team Providers Care Construction Administrator Name Role Phone Jordan Sims MD Primary [...] Department Care Team Description 12/22/2024 Results Follow-Up [facility] Cardiology at [address] [place] [phone] Miranda Bajwa MD 12/17/2024 10:00 AM CDT Ancillary Procedure [facility] Cardiology at [address] [place] [phone] Paroxysmal atrial fibrillation (HCC) 11/11/2024 2:30 PM ORTHODONTIST ASSISTANT Office Visit [facility] Cardiology at [address] [place] [phone] Miranda Bajwa MD Paroxysmal atrial fibrillation (HCC) (Primary Dx); RBBB; Dyslipidemia; Chronic anticoagulation; CON (obstructive sleep apnea) 10/13/2024 2:00 PM ORTHODONTIST ASSISTANT Office Visit [facility] Cardiology [address] [place] [phone] Miranda Bajwa MD CON (obstructive sleep apnea) [...] Comments Blood Pressure 128/86 11/11/2024 2:19 PM ORTHODONTIST ASSISTANT Pulse 55 11/11/2024 2:19 PM ORTHODONTIST ASSISTANT Temperature - - Respiratory Rate - - Oxygen Saturation 95% 11/11/2024 2:19 PM ORTHODONTIST ASSISTANT Inhaled Oxygen Concentration - - Weight 107 kg (236 lb) 11/11/2024 2:19 PM ORTHODONTIST ASSISTANT Height 175.3 cm (5' 9 ) 11/11/2024 2:19 PM ORTHODONTIST ASSISTANT Body Mass Index 34.85 11/11/2024 2:19 PM ORTHODONTIST ASSISTANT Plan of Treatment Health Maintenance Due Date Last Done Comments Colon Cancer Screening-Colonoscopy 1960 Depression Screening 1959 Fall Risk Assessment 1960 Hepatitis C Screening 1960 Prostate Cancer Screening-PSA 1960 DTaP/Tdap/Td Vaccine (1 - Tdap) 11/14/1970 Hepatitis B Screening 11/14/1977 Pneumococcal vaccine 65+ (1 of 2 - PCV) 11/14/1978 Zoster Vaccine (1 of 2) 11/14/1978 Well Visit 65+ 11/14/2024 Influenza Vaccine (Season Ended) 2025 Procedures Procedure Name Priority Date/Time Associated Diagnosis Comments TRANSTHORACIC ECHO (TTE) COMPLETE W DOPPLER/CF WO CONTRAST Routine 12/17/2024 10:38 AM CDT Paroxysmal atrial fibrillation (HCC) ELECTROCARDIOGRAM REPORT Routine 025 8:14 AM ORTHODONTIST ASSISTANT Paroxysmal atrial fibrillation (HCC) RBBB POCT LIPID PANEL Routine 10/13/2024 2:02 PM ORTHODONTIST ASSISTANT Dyslipidemia from Last 3 Months Results * TRANSTHORACIC ECHO (TTE) COMPLETE W DOPPLER/CF WO CONTRAST (12/17/2024 10:38 AM CDT) LV EF 65 % CONS SCIMAGE Anatomical Region Laterality Modality Ultrasound 12/17/2024 10:0 7 AM CDT Narrative 12/17/2024 12:47 PM CDT [facility] Cardiology [facility], [address], [place] [address] P:[phone] P:[phone] Echocardiographic Report Patient Name: CLAUDIO LOVE D [...] FINDINGS: Interpretation Site: Exam was interpreted at [facility]. Left Ventricle: Normal left ventricular systolic function. [...] Procedure Note Miranda Bajwa MD - 12/17/2024 [facility] Cardiology [facility], [address], [place] [address] P:[phone] P:[phone] Echocardiographic Report Patient Name: CLAUDIO LOVE Irma : 1960 Study Date: 12/17/2024 10:07:40 AM [...] FINDINGS: Interpretation Site: Exam was interpreted at [facility]. Left Ventricle: Normal left ventricular systolic function. [...] Result * Electrocardiogram Report (11/11/2024 8:14 AM ORTHODONTIST ASSISTANT) Miranda Bajwa MD ECG ORDERABLES Final Res ult * POCT lipid panel (10/13/2024 2:02 PM ORTHODONTIST ASSISTANT) Cholesterol, POC 196 mg/dL HDL, POC 19 mg/dL Triglycerides, POC 199 mg/dL LDL Cholesterol POC 137 mg/dL Chol/HDL Ratio, POC 7.4 Non-HDL Cholesterol, POC 177 mg/dL Cholesterol Total, POC 196 mg/dL Capillary blood 10/13/2024 2 :02 PM ORTHODONTIST ASSISTANT Miranda Bajwa MD POINT OF CARE TEST ORDERA BLES Final Result from Last 3 Months [place] MEDICARE [facility] MEDICARE SUPPLEMENT Care Teams Construction Administrator Relationship Specialty Start Date End Date Jordan Sims MD [address] [place] [place] [address] PCP - General Family Medicine 03/27/18 No, Physician 03/27/18
--- OUTSIDE RECORDS SUMMARY | 2025-01-03 01:57 | XMS_ITS | Continuity of Care Document ---
Author Organization [facility] [facility] Address [address] [place] [address] [address] [place] [address] Phone Care Team Providers Care Drying Supervisor Name Role Phone Saeed Ambriz Unavailable Unavailable Procedures Procedure Date Progress Note Therapeutic Activities Neuromuscular Re-Ed Hot or Cold Pack Manual Therapy Therapeutic Activities Manual Therapy Therapeutic Activities Manual Therapy Therapeutic Activities Manual Therapy Therapeutic Activities Therapeutic Activities Neuromuscular Re-Ed Therapeutic Exercise Therapeutic [...] Diagnoses Date Provider Providers Copied on Encounter [facility], [id number], tel:[phone] [place] No Information 5 Tomas Saeed. . [facility], [place], [place], [id number], tel:[phone] [place] No Information 5 Tomas Saeed. . Referring Provider: Access Direct. [facility] [facility], [place], [place], [id number], tel:[phone] [place] No Information 5 Tomas Saeed. . Referring Provider: Access Direct. [facility], [place], [place], [id number], tel:[phone] [place] No Information 5 Tomas Saeed. . Referring Provider: Access Direct. [facility], [place], [place], [id number], tel:[phone] [place] No Information 5 Tomas Saeed. . Referring Provider: Access Direct. [facility], [place], [place], [id number], [place] tel:[phone] [place] No Information - 5 Tomas Saeed. . Referring Provider: Access Direct. [facility], [place], [place], [id number], tel:[phone] [place] No Information - 5 Aponte Vika. . Referring Provider: Jason Savage, [address], [place], [address]. tel:[phone] [facility], [place], [place], [id number], [place] tel:[phone] [place] No Information 5 Tomas Saeed. . Referring Provider: Access Direct. [facility], [place], [place], [id number], [place] tel:[phone] [place] No Information 5 Tomas Saeed. . Referring Provider: Access Direct. [facility], [place], [place], [id number], [place] tel:[phone] [place] No Information 5 Aponte Vika. . Referring Provider: Jason Savage, [address], [place], [address]. tel:[phone] [facility], [place], [place], [id number], [place] tel:[phone] [place] No Information 5 Tomas Saeed. . Referring Provider: Access Direct. [facility] [facility] [address], [place], [place], [id number], tel:[phone] [place] No Information 5 Tomas Saeed. . Referring Provider: Access Direct. [facility], [id number], tel:[phone] [place] No Information 5 Thom Tipton. . Referring Provider: Access Direct. [facility], [address], [id number], tel:[phone] [place] No Information 5 Thom Tipton. . Referring Provider: Access Direct. [facility], [address], [id number], tel:[phone] [place] No Information 5 Aponte Vika. . Referring Provider: Lashay Pantoja, [place], [address]. tel:[phone] [facility] [address], [id number], tel:[phone] [place] No Information 4 Aponte Vika. . Referring Provider: Lashay Pantoja, [place], [address]. tel:[phone] [facility] [address], [id number], tel:[phone] [place] No Information 4 Aponte Vika. . Referring Provider: Lashay Pantoja, [place], [address]. tel:[phone] Family History Family Member Type Diagnosis Age At Onset No Information Payers Payer name Insurance type Covered constitution party ID Authoriza tion(s) Medicare [place] MB [id number] [facility] [id number] Social History Type Description Quantity Date Captured [...] Ordered: Clinical Psychology (related to Depression) ordered History Of Present Illness Encounter Date Complaint History Of Prese nt Illness No Information Functional Status Date Functional Assessmen t No Information Instructions Date Instruction Additional Infor mation No Information Assessments Type Assessment Date No Information Patient Care Teams Name Effective Dates (start - stop) Status Members No Information
--- OUTSIDE RECORDS SUMMARY | 2025-01-03 01:57 | XMS_ITS | Encounter Summary ---
Author Organization [facility] Address [address] [place] [address] Phone Care Team Providers Care Country Director Name Role Phone Jimmy Patton MD Primary Care Provider [phone], Physician Primary Care Provider [phone] Jordan Sims MD Primary Care Prov ider Jimmy Patton MD Unavailable [phone] No, Physician Unavailable Encounter Details Date Type Department Care Team (Late st Contact Info) Description 12/30/2017 Orders Only [facility] ProviderTerrance MD [facility] [place] [address] Social History Tobacco Use Types [...] on filedocumented in this encounter Care Teams Country Director Relationship Specialty Start Date End Date Jimmy Patton MD PCP - General Internal Medicine 02/18/18 02/27/18 No, Physician PCP - General 02/28/18 03/26/18 Jordan Sims MD [address] [place] [address] PCP - General Family Medicine 03/27/18 Jimmy Patton MD Internal Medicine 02/28/18 03/26/18 No, Physician 03/27/18 documented as of this encounter
--- OUTSIDE RECORDS SUMMARY | 2025-01-03 01:58 | XMS_ITS | Encounter Summary ---
Author Organization [facility] Address [address] [place] [address] Phone Care Team Providers Care Tie Bucker Name Role Phone Jimmy Patton MD Primary Care Provider No, Physician Primary Care Provider [phone] Jordan Sims MD Primary Care Prov ider Jimmy Patton MD Unavailable [phone] No, Physician Unavailable Encounter Details Date Type Department Care Team (Late st Contact Info) Description 12/26/2017 Orders Only [facility] ProviderTerrance MD [facility] [address] Social History Tobacco Use Types [...] on filedocumented in this encounter Care Teams Tie Bucker Relationship Specialty Start Date End Date Jimmy Patton MD PCP - General Internal Medicine 02/18/18 02/27/18 No, Physician PCP - General 02/28/18 03/26/18 Jordan Sims MD [address] [place] [address] PCP - General Family Medicine 03/27/18 Jimmy Patton MD Internal Medicine 02/28/18 03/26/18 No, Physician 03/27/18 documented as of this encounter
--- OUTSIDE RECORDS SUMMARY | 2025-01-03 01:58 | XMS_ITS | Clinical Summary ---
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
--- OUTSIDE RECORDS SUMMARY | 2025-01-03 02:17 | XMS_ITS | Continuity of Care Document ---
Author Organization [employer] [facility] Address [address] [place] [address] [address] [place] [address] Phone Care Team Providers Care Drafter Construction Name Role Phone Saeed Ambriz Unavailable Unavailable [...] Diagnoses Date Provider Providers Copied on Encounter [facility], [id number], tel:[phone] [place] No Information 5 Tomas Saeed. . [facility], [place], [place], [id number], tel:[phone] [place] No Information 5 Tomas Saeed. . Referring Provider: Access Direct. [facility] [facility], [place], [place], [id number], tel:[phone] [place] No Information 5 Tomas Saeed. . Referring Provider: Access Direct. [facility], [place], [place], [id number], tel:[phone] [place] No Information 5 Tomas Saeed. . Referring Provider: Access Direct. [facility], [place], [place], [id number], tel:[phone] [place] No Information 5 Tomas Saeed. . Referring Provider: Access Direct. [facility] [facility] [address], [place], [place], [id number], [place] tel:[phone] [place] No Information - 5 Tomas Saeed. . Referring Provider: Access Direct. [facility] [facility] [address], [place], [place], [id number], tel:[phone] [place] No Information - 5 Aponte Vika. . Referring Provider: Jason Savage, [address], [place], [address]. tel:[phone] [facility] [facility], [place], [place], [id number], [place] tel:[phone] [place] No Information 5 Tomas Saeed. . Referring Provider: Access Direct. [facility] [facility] [address], [place], [place], [id number], [place] tel:[phone] [place] No Information 5 Tomas Saeed. . Referring Provider: Access Direct. [facility] [facility], [place], [place], [id number], [place] tel:[phone] [place] No Information 5 Aponte Vika. . Referring Provider: Jason Savage, [address], [place], [address]. tel:[phone] [facility], [place], [place], [id number], [place] tel:[phone] [place] No Information 5 Tomas Saeed. . Referring Provider: Access Direct. [facility] [facility] [address], [place], [place], [id number], tel:[phone] [place] No Information 5 Tomas Saeed. . Referring Provider: Access Direct. [facility], [id number], tel:[phone] [place] No Information 5 Thom Tipton. . Referring Provider: Access Direct. [facility], [address], [id number], tel:[phone] [place] No Information 5 Thom Tipton. . Referring Provider: Access Direct. [facility], [address], [id number], tel:[phone] [place] No Information 5 Aponte Vika. . Referring Provider: Lashay Pantoja, [place], [address]. tel:[phone] [facility] [address], [id number], tel:[phone] [place] No Information 4 Aponte Vika. . Referring Provider: Lashay Pantoja, [place], [address]. tel:[phone] [facility] [address], [id number], tel:[phone] [place] No Information 4 Aponte Vika. . Referring Provider: Lashay Pantoja, [place], [address]. tel:[phone] Family History Family Member Type Diagnosis Age At Onset No Information Payers Payer name Insurance type Covered libertarian ID Authoriza tion(s) Medicare [place] MB [id number] [facility] [id number] Social History Type Description Quantity Date Captured [...]
[2025-01-03 03:00] VITALS: BP 133/83; PULSE 60; RESP 15; RESP 16; TEMP 37.1; O2SAT 95; O2SAT 96
[2025-01-03 03:08] VITALS: PULSE 60
--- NOTE | 2025-01-03 03:31 | ED_ITS ---
HPI - General Adult General Chief complaint: Unspecified Stated complaint: pripism Time Seen by Provider: 01/03/25 02:05 History of Present Illness HPI narrative: Patient is a 64-year-old male who presents to the emergency department this evening with complaint of priapism for the past 4 hours. States that he just started a new medication Trimix which he injects into his penis for erectile dysfunction. Patient states that he was told that if this was to happen to take Sudafed and he states that he took for Sudafed with mild improvement. Denies any previous history of priapism. Patient states that he felt as though the priapism improved 10%. Patient is currently complaining of no pain. Denies any additional symptoms or concerns at this time. Related Data Allergies Allergy/AdvReac Type Severity Reaction Status Date / Time No Known Drug Allergies Allergy Unknown Unknown Verified 01/03/25 01:56 Review of Systems Review of Systems: All systems are reviewed and are negative unless stated otherwise in the HPI. [facility] Past Medical History Medical History DVT (deep venous thrombosis) FAT EMBOLISM WITH RT HIP SURGERY 2014 History of pulmonary embolism Acute sinusitis Eustachian tube dysfunction Postoperative wound infection Postoperative bleeding from incision Polycythemia With therapeutic phlebotomy on a near monthly basis. Pulmonary embolism Fat embolism (~2014) Post right hip replacement. Hypogonadism On testosterone. Osteoarthritis Chronic back pain Secondary to degenerative disc disease in the cervical spine and at L3-L4. He has a history of nerve ablation in his neck for chronic headaches. Paroxysmal atrial fibrillation Status post cardioversion in October 2019. 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 Code status: Full code. Smoking status: Former smoker Second hand tobacco smoke exposure: No Alcohol intake: never Substance use: never Substance use type: does not use Living arrangements: with family Additional living arrangements comments: Lives with his in [place]. 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 Gender identity (if verbalized by the patient): Male Sexual Orientation (if Verbalized by the Patient): Straight or Heterosexual Spiritual care concerns: No Agree to blood products: Yes Exam Narrative: General: Alert, awake, afebrile, in no acute distress. HEENT: PERRL, no rhinorrhea, no post nasal drip, oropharynx clear. Neck: Trachea midline, no JVD, no lymphadenopathy. Cardiovascular: Regular rate and rhythm, no murmurs, rubs or gallops, no peripheral edema. Respiratory: Clear to auscultation bilaterally, no tachypnea, no wheezing, no rhonchi, no rubs, no respiratory distress. Abdomen: Soft, nontender, nondistended, no rebound, no guarding, no peritoneal signs. Genital: Priapism with erect penis at 90?. Musculoskeletal: No joint swelling or deformity, normal muscle tone. Skin: No rashes or petechia, no signs of infection. Psychiatric: Alert and oriented, normal behavior and judgment for situation. Neurological: Alert and oriented to person, place, and time. Follows all commands. No focal deficits, speech is clear and fluent. Course Vital Signs Vital signs: Vital Signs Temperature 98.8 F 01/03/25 03:00 Pulse Rate 60 01/03/25 03:00 Respiratory Rate 15 01/03/25 03:00 Blood Pressure 133/83 01/03/25 03:00 Pulse Oximetry 96 01/03/25 03:00 Oxygen Delivery Room Air 01/03/25 03:00 Temperature 98.8 F 01/03/25 03:00 Pulse Rate 61 01/03/25 03:39 Respiratory Rate 17 01/03/25 03:39 Blood Pressure 131/83 01/03/25 03:39 Pulse Oximetry 95 01/03/25 03:39 Oxygen Delivery Room Air 01/03/25 03:00 Medical Decision Making MDM Narrative Medical decision making narrative: The patient was evaluated by myself in the emergency department. History is obtained from patient who is an independent historian and physical exam was performed. External medical records were reviewed at this time. Differential diagnosis considerations include ischemic versus nonischemic priapism. Comorbidities impacting this visit include recent use of erectile dysfunction medication. At this time, case was discussed with the on-call urologist Dr. Redd at [phone] and he recommended performing a priapism reduction and aspirating blood and sending it for an ABG. He also recommended administering a max of 2 mL of 500 micrograms/mL of phenylephrine. Priapism reduction was performed an ABG was obtained revealing a pH of 7.1, pCO2 of 82.3, PO2 less than 27. After priapism reduction procedure, patient's priapism did improve, currently direct at 45?. On-call urologist was contacted again at 0439 and results of the ABG was discussed with him. He recommends observing the patient for an additional hour and as long as the priapism does not return patient can safely be discharged home with Urology follow-up as an outpatient. On repeat assessment, patient has priapism his improved even further, erection is approximately 20?. I have evaluated and discussed social determinants of health with the patient that could potentially impact subsequent diagnosis and treatment plans. On repeat assessment of the patient, reevaluation revealed that the patient is doing well and is in no acute distress. Patient symptoms have improved since he arrived to our emergency department. Repeat vital signs were all reviewed and noted to be stable. Differential diagnosis and treatment plan were discussed with the patient at bedside. Patient agrees with discussion and after shared medical decision making agrees with discharge. All questions were answered to the patient's satisfaction. Patient will follow up with Urology in 3-5 days. Patient was provided with strict return precautions and instructed to return to the emergency department if any new or worsening symptoms develop. The patient was discharged in stable condition. Vital Signs Vital Signs: Vital Signs Temperature 98.8 F 01/03/25 03:00 Pulse Rate 60 01/03/25 03:00 Respiratory Rate 15 01/03/25 03:00 Blood Pressure 133/83 01/03/25 03:00 Pulse Oximetry 96 01/03/25 03:00 Oxygen Delivery Room Air 01/03/25 03:00 Temperature 98.8 F 01/03/25 03:00 Pulse Rate 61 01/03/25 03:39 Respiratory Rate 17 01/03/25 03:39 Blood Pressure 131/83 01/03/25 03:39 Pulse Oximetry 95 01/03/25 03:39 Oxygen Delivery Room Air 01/03/25 03:00 Lab Data Labs: Lab Results 01/03/25 Range/Units 04:28 Methemoglobin 0.7 (0-1.5) %THb ABG Data ABG results: 01/03/25 04:28 Puncture Site Not Reportable ABG pH 7.100 L* ABG pCO2 82.3 H* ABG pO2 < 27.0 L* ABG PO2/FiO2 Ratio Not Reportable ABG HCO3 25.0 ABG O2 Saturation Not Reportable ABG O2 Content Not Reportable ABG Base Excess -5.4 A-a Gradient Not Reportable Oxyhemoglobin 24.6 L* Carboxyhemoglobin 0.6 Reduced Hemoglobin 74.1 H Total Hemoglobin 9.4 L O2 Delivery Device Room air O2 Liters/Min FiO2 21 Discharge Plan Discharge Clinical Impression: Priapism Patient Disposition: Home Condition: Improved Instructions: Antibiotic Form, Priapism (ED) Additional Instructions: Please follow-up with your urologist within the next 3-5 days. Return to the emergency department if any new or worsening symptoms develop. Patient Language: Japanese Prescriptions: No Action prednisone 10 mg tablet See Rx Instructions PO DIRECTED Qty: 52 0RF Rx Instructions: Take 6 daily x4, 4 daily x4, 2 daily x4, 1 daily x4 orally as directed; see taper instructions vardenafil 20 mg tablet See Rx Instructions .ROUTE .COMPLEX Qty: 7 4RF Dose Instruction: TAKE 1 TABLET BY MOUTH ONCE DAILY NEEDED FOR SEXUAL ACTIVITY Rx Instructions: TAKE 1 TABLET BY MOUTH ONCE DAILY NEEDED FOR SEXUAL ACTIVITY amlodipine 5 mg tablet 5 mg PO DAILY Qty: 90 1RF metoprolol succinate 200 mg tablet extended release 24 hr 100 mg PO DAILY Qty: 30 2RF Rx Instructions: Take 1/2 tablet by mouth daily levothyroxine [Euthyrox] 125 mcg tablet 125 mcg PO DAILY Qty: 30 2RF azelastine 137 mcg (0.1 %) spray,non-aerosol 2 spray intranasal BID Qty: 30 2RF Rx Instructions: administer into each nostril modafinil 200 mg tablet See Rx Instructions PO QAM Qty: 30 1RF Rx Instructions: 1/2 to 1 tablet PO every morning; olmesartan 40 mg tablet 40 mg PO DAILY Qty: 90 3RF Xarelto 20 mg tablet 20 mg PO DAILY Qty: 90 1RF tadalafil 20 mg tablet See Rx Instructions .ROUTE .COMPLEX Qty: 6 6RF Dose Instruction: TAKE 1 ORALLY DAILY NEEDED FOR SEXUAL ACTIVITY, ADMINISTER 30 MINUTES BEFORE SEXUAL ACTIVITY. DO NOT USE MORE THAN 1 DOSE PER 24 HOURS. Rx Instructions: TAKE 1 ORALLY DAILY NEEDED FOR SEXUAL ACTIVITY, ADMINISTER 30 MINUTES BEFORE SEXUAL ACTIVITY. DO NOT USE MORE THAN 1 DOSE PER 24 HOURS. tamsulosin 0.4 mg capsule 0.4 mg PO BID Qty: 180 1RF zolpidem 10 mg tablet 10 mg PO QHS PRN (Reason: sleep) Qty: 30 1RF testosterone cypionate 200 mg/mL oil 200 mg IM WEEKLY Qty: 10 2RF (DME) needle (disp) 18 G [BD Regular Bevel [place]] 18 gauge x 1 needle See Rx Instructions .Route Qty: 20 3RF Rx Instructions: Use every week to draw up testosterone (DME) syringe with needle [BD Luer-Jacqueline Syringe] 3 mL 21 gauge x 1 1/2 syringe See Rx Instructions .Route Qty: 20 3RF Rx Instructions: Use every week to inject testosterone Follow-up/Referrals: Jordan Sims MD [Primary Care Provider] - 3 Days Time of Disposition: 05:02
[2025-01-03 03:39] VITALS: BP 131/83; PULSE 61; RESP 17; O2SAT 95
[2025-01-03 04:35] LABS: Base Excess ABG -5.4 mEq/l (+/-2.0); Carboxyhemoglobin 0.6 % THb (0-2.0); Fractional Inspired Oxygen 21 %; Methemoglobin ABG 0.7 %THb (0-1.5); Reduced Hemoglobin 74.1 %THb (0-5.0); Total Hemoglobin 9.4 g/dL (12.0-18.0)
[2025-01-03 04:38] LABS: PCO2 ABG 82.3 mmHg (35.0-45.0); PO2 ABG < 27.0 mmHg (80.0-100.0)
[2025-01-03 04:41] LABS: Oxyhemoglobin 24.6 % THb (90.0-100.0)
[2025-01-03 04:42] LABS: Device ROOM AIR
[2025-01-03 05:42] VITALS: BP 123/79; PULSE 73; RESP 17; O2SAT 98
[2025-01-03 05:43] VITALS: BP 123/79; PULSE 73; RESP 17; O2SAT 98
--- NOTE | 2025-01-15 00:11 | ED.PROCEDURE ---
Procedures Penile Procedure Time out performed: Yes Indication: priapism management Procedural sedation: No Sedation/Analgesia: none Local anesthesia used: bupivacaine 0.25% Amount of anesthesia used (ml): 2 Priapism management: aspiration and phenylephrine injection Patient tolerated procedure: well and no complications Penile procedure complications: none
== END 2025-01-03 05:47 | disposition home or self-care (01) ==
PROVIDERS: Emergency Provider Emergency Medicine; PCP Family Medicine Adolescent Medicine
DX: N48.33 Priapism, drug-induced (principal); T50.995A Adverse effect of other drugs, medicaments and biological substances, initial encounter; I48.0 Paroxysmal atrial fibrillation; I10 Essential (primary) hypertension; E03.9 Hypothyroidism, unspecified; M19.90 Unspecified osteoarthritis, unspecified site; Z96.643 Presence of artificial hip joint, bilateral; Z86.711 Personal history of pulmonary embolism; Z86.718 Personal history of other venous thrombosis and embolism; Z86.2 Personal history of diseases of the blood and blood-forming organs and certain disorders involving the immune mechanism; Z87.891 Personal history of nicotine dependence; Z79.01 Long term (current) use of anticoagulants; Z79.899 Other long term (current) drug therapy
CPT/HCPCS: 36600; 54235; 82375; 82805; 83050; 85018; 96365; 96367; 99284; J2371

== ENCOUNTER 2025-07-09 16:34 | Outpatient (CLI) | payer MEDICARE, SELFPAY ==
--- NOTE | ~2025-07-09 | XR_ITS ---
EXAMINATION: XR wrist LT 2V, 07/09/2025 16:45 CDT HISTORY: M25.532 - Pain in left wrist AFTER FALL COMPARISON: No comparisons available. Findings: Remote corticated fractures of the distal radius, no acute fracture identified. Moderate degenerative changes Soft tissues unremarkable. Impression: No acute fracture or malalignment. Reviewed, dictated and finalized at location P. Impression: No acute fracture or malalignment.
--- OUTSIDE RECORDS SUMMARY | 2025-07-09 16:43 | XMS_ITS | Clinical Summary ---
Author Organization [facility] [address] Address [address] [place] [address] Care Team Providers Care Cell Manager Name Role Phone Jordan Sims MD Primary Care Prov ider No, Physician Unavailable Allergies No known active allergies Medications levothyroxine (SYNTHROID, LEVOTHROID) 125 mcg tablet Take 1 tablet (125 mcg total) by mouth daily 2 03/16/20 18 Active valsartan (DIOVAN) 320 mg tablet Take 1 tablet (320 mg total) by mouth daily Active UNABLE TO FIND Testosterone 200 cream. Once daily. Active anastrozole (ARIMIDEX) 1 mg suspension Take 10 mL (1 mg total) by mouth once a week Active hydroCHLOROthiazide (MICROZIDE) 12.5 mg capsuleIndications: Essential hypertension Take 1 capsule by mouth once daily in the morning 90 capsule 2 02/28/20 21 Active atorvastatin (LIPITOR) 20 mg tabletIndications:D yslipidemia Take 1 tablet (20 mg total) by mouth daily 90 tablet 3 07/19/20 22 Active Gemtesa 75 mg tablet Take 75 mg by mouth daily 10/12/19 25 Active oxyBUTYnin XL (DITROPAN-XL) 10 mg 24 hr tablet Take 1 tablet (10 mg total) by mouth daily 09/20/19 25 Active sildenafiL (VIAGRA) 100 mg tablet Take 1 tablet (100 mg total) by mouth as needed 09/30/19 25 Active amLODIPine (NORVASC) 5 mg tablet Take 1 tablet by mouth once daily 90 tablet 3 10/21/19 25 Active Xarelto 20 mg tabletIndications:C hronic anticoagulation Take 1 tablet by mouth once daily 90 tablet 11/18/19 25 Active metoprolol XL (TOPROL-XL) 100 mg 24 hr tabletIndications:P aroxysmal atrial fibrillation (HCC) Take 1/2 (one-half) tablet by mouth once daily 45 tablet 3 12/15/19 25 Active Active Problems Problem Noted Date Diagnosed Date Dyslipidemia 07/19/2022 Tiredness 06/07/2022 Abnormal ECG 06/07/2022 RBBB 06/07/2022 CON (obstructive sleep apnea) 07/06/2021 Chronic anticoagulation 07/08/2018 Atrial fibrillation 03/27/2018 Bilateral pulmonary embolism 03/27/2018 History of total hip arthroplasty 03/27/2018 Hypothyroidism 03/27/2018 Resolved Problems Problem Noted Date Diagnosed Date Resolved Date Essential hypertension 03/27/201806/07 Encounters Date Type Department Care Team Description 05/20/2025 1:30 PM CDT Office Visit [facility] Medical [facility] Cardiology at [address] [place] [address] Collin Douglass MD Chronic anticoagulation (Primary Dx); Paroxysmal atrial fibrillation (HCC); Hypothyroidism, unspecified type; CON (obstructive sleep apnea); Bilateral pulmonary embolism (HCC); Dyslipidemia from Last 3 Months Surgical History [...] Sign Reading Time Taken Comments Blood Pressure 124/82 05/20/2025 1:23 PM CDT Pulse 65 05/20/2025 1:23 PM CDT Temperature - - Respiratory Rate - - Oxygen Saturation 95% 05/20/2025 1:23 PM CDT Inhaled Oxygen Concentration - - Weight 110.7 kg (244 lb) 05/20/2025 1:23 PM CDT Height 175.3 cm (5' 9) 05/20/2025 1:23 PM CDT Body Mass Index 36.03 05/20/2025 1:23 PM CDT Plan of Treatment Health Maintenance Due Date Last Done Comments Colon Cancer Screening-Colonoscopy 1959 Depression Screening 1959 Fall Risk Assessment 1960 Hepatitis C Screening 1960 Prostate Cancer Screening-PSA 1959 DTaP/Tdap/Td Vaccine (1 - Tdap) 11/14/1970 Hepatitis B Screening 11/14/1977 Pneumococcal vaccine 65+ (1 of 2 - PCV) 11/14/1978 Zoster Vaccine (1 of 2) 11/14/1978 Well Visit 65+ 11/14/2024 Influenza Vaccine (#1) 2025 [place] [facility] MEDICARE SUPPLEMENT Care Teams Cell Manager Relationship Specialty Start Date End Date Jordan Sims MD PCP - General Family Medicine 03/27/18 No, Physician 03/27/18
--- OUTSIDE RECORDS SUMMARY | 2025-07-09 16:43 | XMS_ITS | Encounter Summary ---
Author Organization [facility] Address [address] [place] [address] Phone Care Team Providers Care Critical Care Transport Nurse Name Role Phone Jimmy Patton MD Primary Care Provider No, Physician Primary Care Provider Jordan Sims MD Primary Care Prov ider Jimmy Patton MD Unavailable [phone] No, Physician Unavailable Encounter Details Date Type Department Care Team (Late st Contact Info) Description 12/12/2017 Orders Only [facility] ProviderTerrance MD [facility] [place] [address] Social History Tobacco Use Types [...] on filedocumented in this encounter Care Teams Critical Care Transport Nurse Relationship Specialty Start Date End Date Jimmy Patton MD PCP - General Internal Medicine 02/18/18 02/27/18 No, Physician PCP - General 02/28/18 03/26/18 Jordan Sims MD PCP - General Family Medicine 03/27/18 Jimmy Patton MD Internal Medicine 02/28/18 03/26/18 No, Physician 03/27/18 documented as of this encounter
--- OUTSIDE RECORDS SUMMARY | 2025-07-09 16:43 | XMS_ITS | Clinical Summary ---
Author Organization [facility] Address [address] [place] [address] Care Team Providers Care Metal Molder Name Role Phone Jordan Sims MD Primary Care Provider [phone] Collin Douglass MD Unavailable Allergies No known active allergies Medications rivaroxaban [...] Problem Noted Date Diagnosed Date Prostate cancer 06/18/2024 Social History Tobacco Use Types Packs/Day Years Used Date Smoking Tobacco: Never Smokeless Tobacco: Never Tobacco Cessation:Counseling Given: Not Answered Alcohol Use Standard Drinks/Week Comments Not Currently 0 (1 standard drink = 0.6 oz pur e alcohol) [facility] Utilities Answer Date Recorded In the past 12 months has e [employer], gas, oil, or water [employer] threatened to shut off services in your [...] any time in the past 12 m [facility], were you homeless or living in a jail (including now)? No 06/18/2024 Sex and Gender [...] 7:00 AM CDT Height 175.3 cm (5' 9) 06/18/2024 7:00 AM CDT Body Mass Index 34.93 06/18/2024 7:00 AM CDT Plan of Treatment Health Maintenance Due Date Last Done Comments Colorectal Cancer Screening Colonoscopy (10 Years) 1960 Hepatitis C 11/14/1977 DTaP, Tdap and Td Vaccines ( 1 - Tdap) 11/14/1978 Pneumococcal Vaccine: 50+ Ye ars (1 of 1 - PCV) 11/14/2009 Zoster Vaccines (1 of 2) 11/14/2009 COVID-19 Vaccine ( - 2024-2 6 season) 2025 Influenza Adult (#1) 2025 RSV Immunization or 60+ Years (1 - 1-dose 75+ series) 11/14/2034 Hepatitis A Vaccines Aged Out No long er eligible based on patient's age to complete this topic Meningococcal B Vaccine Aged Out No l [...] transitions and discharge planning Lifestyle No Yaw Schneider RN Insurance [facility] Advance Directives * Full Code (Latest Code Status on File) Date Activated Date Inactivated Comments 06/18/2024 5:03 PM 06/21/2024 6:51 PM Care Teams Metal Molder Relationship Specialty Start Date End Date Jordan Sims MD [address] [facility] [address] [place] [address] PCP - General FAMILY PRACTICE 06/10/24 Collin Douglass MD [address] [facility] [address] [place] [address] CARDIOVASCULAR DISEASE 06/15/24
--- OUTSIDE RECORDS SUMMARY | 2025-07-09 16:43 | XMS_ITS | Encounter Summary ---
Author Organization [facility] Healthcare Address [address] [place] [address] Care Team Providers Care Campus Supervisor Name Role Phone Jordan Sims MD Primary Care Prov ider No, Physician Unavailable Encounter Details Date Type Department Care Team (Late st Contact Info) Description 02/09/2025 Telephone [facility] Medical Group Cardiology [address] [place] [address] Collin Douglass MD [address] [facility] [address] [facility] [place] [address] [place], [place] [id number] Social History Tobacco Use Types Packs/Day Years [...] on filedocumented in this encounter Care Teams Campus Supervisor Relationship Specialty Start Date End Date Jordan Sims MD PCP - General Family Medicine 03/27/18 No, Physician 03/27/18 documented as of this encounter
--- OUTSIDE RECORDS SUMMARY | 2025-07-09 16:43 | XMS_ITS | Encounter Summary ---
Author Organization [facility] Address [address] [place] [address] Phone Care Team Providers Care Program Technician Name Role Phone Jimmy Patton MD Primary Care Provider [phone] No, Physician Primary Care Provider Jordan Sims MD Primary Care Prov ider Jimmy Patton MD Unavailable [phone] No, Physician Unavailable Encounter Details Date Type Department Care Team (Late st Contact Info) Description 12/16/2017 Orders Only [facility] ProviderTerrance MD [facility] [place] [address] Social History Tobacco Use Types [...] on filedocumented in this encounter Care Teams Program Technician Relationship Specialty Start Date End Date Jimmy Patton MD PCP - General Internal Medicine 02/18/18 02/27/18 No, Physician PCP - General 02/28/18 03/26/18 Jordan Sims MD PCP - General Family Medicine 03/27/18 Jimmy Patton MD Internal Medicine 02/28/18 03/26/18 No, Physician 03/27/18 documented as of this encounter
--- OUTSIDE RECORDS SUMMARY | 2025-07-09 16:43 | XMS_ITS | Encounter Summary ---
Author Organization [facility] Healthcare Address [address] [place] [address] Care Team Providers Care Pearl Glue Operator Name Role Phone Jimmy Patton MD Primary Care Provider [phone] No, Physician Primary Care Provider [phone] Jordan Sims MD Primary Care Prov ider Jimmy Patton MD Unavailable No, Physician Unavailable Encounter Details Date Type Department Care Team (Late st Contact Info) Description 02/18/2018 Orders Only [facility] Health Information Management [address] [place] [address] Scanning, Provider Social History Tobacco Use Types Packs/Day Years [...] Procedure Name Priority Date/Time Associated Diagnosis Comments SCAN - RADIOLOGY/IMAGING 02/18/2018 CARDIOLOGY DOCUMENT SCAN 02/18/2018 documented in this encounter Results * SCAN - RADIOLOGY/IMAGING (02/18/2018) Anatomical Region Laterality Modality Other us Provider Scanning Final Result * Cardiology Document Scan (02/18/2018) Anatomical Region Laterality Modality Other us Provider Scanning CV CARDIAC SERVICES PROCEDURES Edited Result - Final documented in this encounter Visit Diagnoses Not on filedocumented in this encounter Care Teams Pearl Glue Operator Relationship Specialty Start Date End Date Jimmy Patton MD PCP - General Internal Medicine 02/18/18 02/27/18 No, Physician PCP - General 02/28/18 03/26/18 Jordan Sims MD PCP - General Family Medicine 03/27/18 Jimmy Patton MD Internal Medicine 02/28/18 03/26/18 No, Physician 03/27/18 documented as of this encounter
--- OUTSIDE RECORDS SUMMARY | 2025-07-09 16:43 | XMS_ITS | Encounter Summary ---
Author Organization [facility] Address [address] [place] [address] Phone Care Team Providers Care Pipe Threading Machine Operator Name Role Phone Jimmy Patton MD Primary Care Provider No, Physician Primary Care Provider [phone] Jordan Sims MD Primary Care Prov ider Jimmy Patton MD Unavailable [phone] No, Physician Unavailable Encounter Details Date Type Department Care Team (Late st Contact Info) Description 01/02/2018 Orders Only [facility] ProviderTerrance MD [facility] [place] [address] Social History Tobacco Use Types [...] on filedocumented in this encounter Care Teams Pipe Threading Machine Operator Relationship Specialty Start Date End Date Jimmy Patton MD PCP - General Internal Medicine 02/18/18 02/27/18 No, Physician PCP - General 02/28/18 03/26/18 Jordan Sims MD PCP - General Family Medicine 03/27/18 Jimmy Patton MD Internal Medicine 02/28/18 03/26/18 No, Physician 03/27/18 documented as of this encounter
--- OUTSIDE RECORDS SUMMARY | 2025-07-09 16:43 | XMS_ITS | Clinical Summary ---
Author Organization [facility] Address [address] [place] [address] Phone Care Team Providers Care Pepper Cutter Name Role Phone Jordan Manning MD Primary Care Provider Allergies No known active allergies Medications amLODIPine [...] 8:40 AM CDT Height 177.8 cm (5' 10) 01/04/2022 8:40 AM CDT Body Mass Index 33.15 01/04/2022 8:40 AM CDT Plan of Treatment Health Maintenance Due Date Last Done Comments Pneumococcal PPSV23/PCV13 65 + Years / Low and Medium Risk (1 of 2 - PCV) 11/14/2009 Influenza Vaccine (#1) 2025 Insurance Care Teams Pepper Cutter Relationship Specialty Start Date End Date Jordan Manning MD [address] [address] PCP - General Family Medicine 06/08/21
--- OUTSIDE RECORDS SUMMARY | 2025-07-09 16:43 | XMS_ITS | Encounter Summary ---
Author Organization [facility] Address [address] [place] [address] Phone Care Team Providers Care Manager Contact Name Role Phone Jimmy Patton MD Primary Care Provider [phone] No, Physician Primary Care Provider [phone] Jordan Sims MD Primary Care Prov ider Jimmy Patton MD Unavailable [phone] No, Physician Unavailable Encounter Details Date Type Department Care Team (Late st Contact Info) Description 12/23/2017 Orders Only [facility] ProviderTerrance MD [facility] [place] [address] Social History Tobacco Use Types [...] on filedocumented in this encounter Care Teams Manager Contact Relationship Specialty Start Date End Date Jimmy Patton MD PCP - General Internal Medicine 02/18/18 02/27/18 No, Physician PCP - General 02/28/18 03/26/18 Jordan Sims MD PCP - General Family Medicine 03/27/18 Jimmy Patton MD Internal Medicine 02/28/18 03/26/18 No, Physician 03/27/18 documented as of this encounter
--- OUTSIDE RECORDS SUMMARY | 2025-07-09 16:43 | XMS_ITS | Encounter Summary ---
Author Organization [facility] Address [address] [place] [address] Phone Care Team Providers Care Right Of Way Clearer Name Role Phone Jimmy Patton MD Primary Care Provider No, Physician Primary Care Provider Jordan Sims MD Primary Care Prov ider Jimmy Patton MD Unavailable [phone] No, Physician Unavailable Encounter Details Date Type Department Care Team (Late st Contact Info) Description 12/19/[address] [facility] ProviderTerrance [facility] [place] [address] Social History Tobacco Use Types [...] on filedocumented in this encounter Care Teams Right Of Way Clearer Relationship Specialty Start Date End Date Jimmy Patton MD PCP - General Internal Medicine 02/18/18 02/27/18 No, Physician PCP - General 02/28/18 03/26/18 Jordan Sims MD PCP - General Family Medicine 03/27/18 Jimmy Patton MD Internal Medicine 02/28/18 03/26/18 No, Physician 03/27/18 documented as of this encounter
--- OUTSIDE RECORDS SUMMARY | 2025-07-09 16:43 | XMS_ITS | Encounter Summary ---
Author Organization [facility] Address [address] [place] [address] Phone Care Team Providers Care Manager Lean Name Role Phone Jimmy Patton MD Primary Care Provider No, Physician Primary Care Provider [phone] Jordan Sims MD Primary Care Prov ider Jimmy Patton MD Unavailable [phone] No, Physician Unavailable Encounter Details Date Type Department Care Team (Late st Contact Info) Description 12/30/2017 Orders Only [facility] ProviderTerrance MD [facility] [place] [address] Social History Tobacco Use Types [...] filedocumented in this encounter Care Teams Manager Lean Relationship Specialty Start Date End Date Jimmy Patton MD PCP - General Internal Medicine 02/18/18 02/27/18 No, Physician PCP - General 02/28/18 03/26/18 Jordan Sims MD PCP - General Family Medicine 03/27/18 Jimmy Patton MD Internal Medicine 02/28/18 03/26/18 No, Physician 03/27/18 documented as of this encounter
--- OUTSIDE RECORDS SUMMARY | 2025-07-09 16:43 | XMS_ITS | Encounter Summary ---
Author Organization [facility] Address [address] [place] [address] Phone Care Team Providers Care Websphere Consultant Name Role Phone Jimmy Patton MD Primary Care Provider No, Physician Primary Care Provider [phone] Jordan Sims MD Primary Care Prov ider Jimmy Patton MD Unavailable [phone] No, Physician Unavailable Encounter Details Date Type Department Care Team (Late st Contact Info) Description 12/26/2017 Orders Only [facility] ProviderTerrance MD [facility] [place] [address] Social History Tobacco Use Types [...] on filedocumented in this encounter Care Teams Websphere Consultant Relationship Specialty Start Date End Date Jimmy Patton MD PCP - General Internal Medicine 02/18/18 02/27/18 No, Physician PCP - General 02/28/18 03/26/18 Jordan Sims MD PCP - General Family Medicine 03/27/18 Jimmy Patton MD Internal Medicine 02/28/18 03/26/18 No, Physician 03/27/18 documented as of this encounter
--- OUTSIDE RECORDS SUMMARY | 2025-07-09 16:43 | XMS_ITS | Encounter Summary ---
Author Organization [facility] Address [address] [place] [address] Phone Care Team Providers Care Programmer Numerical Control Name Role Phone Jimmy Patton MD Primary Care Provider No, Physician Primary Care Provider [phone] Jordan Sims MD Primary Care Prov ider Jimmy Patton MD Unavailable [phone] No, Physician Unavailable Encounter Details Date Type Department Care Team (Late st Contact Info) Description 01/06/2018 Orders Only [facility] ProviderTerrance MD [place] [address] Social History Tobacco Use Types [...] on filedocumented in this encounter Care Teams Programmer Numerical Control Relationship Specialty Start Date End Date Jimmy Patton MD PCP - General Internal Medicine 02/18/18 02/27/18 No, Physician PCP - General 02/28/18 03/26/18 Jordan Sims MD PCP - General Family Medicine 03/27/18 Jimmy Patton MD Internal Medicine 02/28/18 03/26/18 No, Physician 03/27/18 documented as of this encounter
--- OUTSIDE RECORDS SUMMARY | 2025-07-09 16:43 | XMS_ITS | Patient Health Record ---
Author Organization [facility] Address [address] [place], [place] [id number] Care Team Providers Care Edge Inker Uppers Name Role Phone GILLIAN BETANCOURT Unavailable [phone] Jordan Sims Unavailable Unavailable Reason For Referral No Information Plan Of Treatment No Information Insurance Providers Payer Name Payer Address Payer Phone Subscriber Number Group Number Insured Name Patient Relationship to Insured Coverage Start Date Coverage End Date [facility] ATTN CLAIMS [address] [place] [address] [id number] [employer] LOVE [address] Self - patient is the insured
== END 2025-07-09 16:35 | disposition home or self-care (01) ==
PROVIDERS: PCP Family Medicine Adolescent Medicine; Visit Provider Nurse Practitioner Family
DX: M25.532 Pain in left wrist (principal)
CPT/HCPCS: 73100